=== PATIENT | male | born 1975 | race Caucasian/White ===

== ENCOUNTER 2016-05-16 21:07 | Inpatient (IN) | payer OTHER ==
[~2016-05-16] VITALS: Ht 182.9 cm; Wt 158.5 kg
[~2016-05-16 21:07] MED LIST: COUM4TAB PO; DILT60TA33 PO; FURO1TAB62 PO; PANT20 PO
[2016-05-16 21:08] VITALS: BP 178/109; PULSE 93; RESP 24; TEMP 98.5; O2SAT 94
--- NOTE | 2016-05-16 21:12 | PD ---
Physical Exam Date Seen by Provider: May 16, 2016 Time Seen by Provider: 21:10 Narrative 40 year old male presents to the emergency department for evaluation of increased pressure to his upper abdomen causing him to be short of breath. Patient states it has been ongoing for 9 months. He states he was seeing a specialist, but "ran out of money". He states that his GI MD wanted to do a colonoscopy/endoscopy, but he did not have this done. No nausea, vomiting, diarrhea. He reports constipation. Patient awaiting bed placement. Data Data Last Documented VS Vital Signs Date Time Temp Pulse Resp B/P Pulse Ox O2 Delivery O2 Flow Rate FiO2 05/16/16 21:08 98.5 93 24 178/109 94 Room Air [facility] Supervised Visit with SAMANTHA: Rafaela Rodriguez May 16, 2016 21:11
[2016-05-16] MEDS ORDERED: VARE.5 PO (21:56)
[2016-05-16 22:09] VITALS: O2SAT 93
[2016-05-16] MEDS ORDERED: SODIUM CHLORIDE 0.9% FLUSH 10 ML FLUSH IV FLUSH PRN (22:15)
[2016-05-16] MEDS ORDERED: LORazepam 2 MG/ML VIAL IV PUSH ONE (22:15)
[2016-05-16 22:35] LABS: AUTOMATED NEUTROPHIL # 8.2 TH/MM3 (1.8-7.7); BASOPHIL # 0.1 TH/MM3 (0-0.2); BASOPHIL % 1.2 % (0.0-2.0); EOSINOPHIL # 0.1 TH/MM3 (0-0.4); EOSINOPHIL % 1.3 % (0.0-4.0); HEMATOCRIT 42.5 % (39.0-51.0); HEMO FLAGS DIFF FINAL; LYMPH % 12.8 % (9.0-44.0); LYMPHOCYTE # 1.4 TH/MM3 (1.0-4.8); MEAN CELL VOLUME 80.6 FL (80.0-100.0); MEAN CORPUSCULAR HEMOGLOBIN 25.3 PG (27.0-34.0); MEAN CORPUSCULAR HGB CONC 31.4 % (32.0-36.0); MONO % 8.9 % (0.0-8.0); NEUT % 75.8 % (16.0-70.0); PLATELET COUNT 290 TH/MM3 (150-450); RED BLOOD COUNT 5.27 MIL/MM3 (4.50-5.90); RED CELL DISTRIBUTION WIDTH 19.9 % (11.6-17.2); WHITE BLOOD COUNT 10.7 TH/MM3 (4.0-11.0)
[2016-05-16 22:49] LABS: APTT (PATIENT) 24.6 SEC (24.3-30.1); INTERNATIONAL NORMALIZED RATIO 1.1 RATIO
[2016-05-16 22:56] LABS: ANION GAP 8 MEQ/L (5-15); AST (GOT) 19 U/L (15-37); BICARBONATE 27.4 MEQ/L (21.0-32.0); BLOOD UREA NITROGEN 19 MG/DL (7-18); CHLORIDE 105 MEQ/L (98-107); GLOMERULAR FILTRATION RATE 70 ML/MIN (>89); POTASSIUM 4.4 MEQ/L (3.5-5.1); SODIUM (NA) 140 MEQ/L (136-145)
[2016-05-16 23:01] LABS: ALKALINE PHOSPHATASE 96 U/L (45-117); ALT (GPT) 18 U/L (12-78); TOTAL BILIRUBIN ADULT 0.7 MG/DL (0.2-1.0)
[2016-05-16] MEDS ORDERED: IOHEXOL 350 MG/ML 10 ML VIAL (for RAD DIAG) IV ONE (23:20)
[2016-05-17] VITALS (19 sets, daily range): BP systolic 92–186; BP diastolic 60–138; PULSE 78–131; RESP 14–26; TEMP 98–98.3; O2SAT 93–99
[2016-05-17] MEDS ORDERED: FUROSEMIDE 40 MG/4 ML VIAL IV PUSH ONE (00:15)
--- NOTE | 2016-05-17 00:18 | RADRPT ---
EXAM DATE/TIME: 05/16/2016 23:18 [facility] COMPARISON: No previous studies available for comparison. INDICATIONS : Abdominal pain. IV CONTRAST: 100 cc Omnipaque 350 (iohexol) IV ORAL CONTRAST: No oral contrast ingested. RADIATION DOSE: 29.15 CTDIvol (mGy) MEDICAL HISTORY : Cardiovascular disease. SURGICAL HISTORY : Appendectomy. ENCOUNTER: Initial ACUITY: 7 - 11 months PAIN SCALE: 9/10 LOCATION: Bilateral upper quadrant abdomen TECHNIQUE: Volumetric scanning of the abdomen and pelvis was performed. Using automated exposure control and ad justment of the mA and/or kV according to patient size, radiation dose was kept as low as reasonably achievable to obtain optimal diagnostic quality images. FINDINGS: There is artifact along the right lateral abdomen. LOWER LUNGS: There is a calcified granuloma at the right lung base. There is some patchy minimal consolidation or atelectasis at the lung bases. LIVER: There is diffuse decreased attenuation of the liver without lesion. There is no dilation of the bili jacinto tree. No calcified gallstones. SPLEEN: Normal size without lesion. PANCREAS: Within normal limits. KIDNEYS: Normal in size and shape. There is no mass, stone or hydronephrosis. ADRENAL GLANDS: Within normal limits. VASCULAR: There is no aortic aneurysm. BOWEL/MESENTERY: The stomach, small bowel, and colon demonstrate no acute abnormality. There is mild ascites around th e spleen and left paracolic gutter region. There is minimal hazy density at the root of mesentery. ABDOMINAL WALL: Within normal limits. RETROPERITONEUM: There is no lymphadenopathy. BLADDER: No wall thickening or mass. REPRODUCTIVE: Within normal limits. INGUINAL: There is no lymphadenopathy or hernia. MUSCULOSKELETAL: Within normal limits for patient age. There is edema seen superficially throughout the abdomen and pe lvis. CONCLUSION: 1. Suspected mild fatty infiltration of the liver. 2. Mild ascites seen in the left paracolic gutter region and around the spleen. 3. Minimal hazy density at the root of the mesentery. This is nonspecific. 4. Superficial edema seen throughout. Jerome Pina MD on May 17, 2016 at 0:11 Board Certified Radiologist. This report was verified electronically.
--- NOTE | 2016-05-17 00:32 | RADRPT ---
EXAM DATE/TIME: 05/16/2016 23:51 [facility] COMPARISON: CHEST SINGLE AP, January 17, 2016, 15:01. INDICATIONS : Short of breath. MEDICAL HISTORY : None. SURGICAL HISTORY : None. ENCOUNTER: Initial ACUITY: 1 day PAIN SCORE: 7/10 LOCATION: Bilateral chest FINDINGS: The heart size is enlarged. There is diffuse mixed interstitial and mild alveolar density. A signific ant effusion is not seen. CONCLUSION: Cardiomegaly with diffuse increased density likely related to CHF. Jerome Pina MD on May 17, 2016 at 0:30 Board Certified Radiologist. This report was verified electronically.
[2016-05-17] MEDS ORDERED: DILTIAZEM HCL 25 MG/5 ML VIAL IV ONE (01:30)
[2016-05-17 01:32] LABS: BLOOD, URINE NEG (NEG); COMMENT (UR) CULT NOT INDICATED; CULTURE IF INDICATED CULT NOT INDICATED; GLUCOSE,URINE NEG (NEG); KETONE, URINE NEG (NEG); MUCUS URINE FEW /lpf (OCC); NITRITE,URINE NEG (NEG); PH, URINE 5.5 (5.0-8.5); SQUAMOUS EPITHELIAL CELL URINE <1 /hpf (0-5); URINE COLOR YELLOW (YELLW/STRAW)
--- NOTE | 2016-05-17 01:57 | PD ---
HPI Chief Complaint: Abdominal Pain Time Seen by Provider: 21:53 Travel History International Travel<30 days: No Contact w/Intl Traveler<30days: No Traveled to known affect area: No History of Present Illness HPI This is a 40-year-old male who has a history of atrial fibrillation who is on Lasix and Coumadin who presents to the emergency department with several days of increasing shortness of breath associated with abdominal pain, constant, moderate severity, worse with laying flat. He says that the symptoms of been going on for months but it been worsening over the past week. He says his primary care doctor told him to follow up with a GI that he's having lot of insurance difficulties. He has had some increasing lower extremity swelling. He says he feels like his abdomen is distended and is getting in the way of him taking deep breaths. PFSH Past Medical History Hx Anticoagulant Therapy: Yes (COUMADIN) Atrial Fibrillation: Yes Heart Rhythm Problems: Yes ( A FIB) Cancer: No Cardiovascular Problems: Yes (AFIB) Chest Pain: No Congestive Heart Failure: No Diminished Hearing: No Endocrine: No GERD: Yes Genitourinary: No Immune Disorder: No Musculoskeletal: No Neurologic: No Psychiatric: No Reproductive: No Respiratory: No Past Surgical History Abdominal Surgery: No AICD: No Appendectomy: Yes Arteriovenous Shunt: No Cardiac Surgery: No Ear Surgery: No Endocrine Surgery: No Eye Surgery: No Genitourinary Surgery: No Insulin Pump: No Joint Replacement: No Oral Surgery: No Pacemaker: No Thoracic Surgery: Yes (APPENDECTOMY) Other Surgery: Yes (RIGHT LEG) Social History Alcohol Use: No Tobacco Use: Yes (1 PPD) Substance Use: No Allergies-Medications (Allergen,Severity, Reaction): Coded Allergies: No Known Allergies (Unverified , 05/16/16) Reported Meds & Prescriptions Reported Meds & Active Scripts Active Coumadin (Warfarin) 4 Mg Tab 4 Mg PO DAILY Cardizem (Diltiazem HCl) 60 Mg Tab 60 Mg PO QID Lasix (Furosemide) 20 Mg Tab 20 Mg PO DAILY Reported Chantix (Varenicline) 0.5 Mg Tab 0.5 Mg PO DAILY Days 1-3 Review of Systems Except as stated in HPI: all other systems reviewed are Neg Physical Exam Narrative GENERAL: Morbidly obese SKIN: Focused skin assessment warm and dry. HEAD: Atraumatic. Normocephalic. EYES: Pupils equal and round. No injection or drainage. ENT: Moist mucous membranes NECK: Trachea midline. CARDIOVASCULAR: Regular rate and rhythm. No murmur appreciated. 2+ bilateral lower extremity edema RESPIRATORY: Rales in the bilateral lung bases, tachypnea GASTROINTESTINAL: Abdomen soft, distended, mildly tender to palpation in the periumbilical area with no rebound or guarding. MUSCULOSKELETAL: No obvious deformities. NEUROLOGICAL: Awake and alert. No obvious cranial nerve deficits. Moving all extremities. PSYCHIATRIC: Appropriate mood and affect; insight and judgment normal. Data Data Last Documented VS Vital Signs Date Time Temp Pulse Resp B/P Pulse Ox O2 Delivery O2 Flow Rate FiO2 05/17/16 01:37 131 26 163/88 94 05/17/16 01:13 Nasal Cannula 3 05/16/16 21:08 98.5 Orders Complete Blood Count With Diff (05/16/16 22:06) Comprehensive Metabolic Panel (05/16/16 22:06) Lipase (05/16/16 22:06) Urinalysis - C+S If Indicated (05/16/16 22:06) Ct Abd/Pel W Iv Contrast(Rout) (05/16/16 22:06) Iv Access Insert/Monitor (05/16/16 22:06) Ecg Monitoring (05/16/16 22:06) Oximetry (05/16/16 22:06) Sodium Chloride 0.9% Flush (Ns Flush) (05/16/16 22:15) B-Type Natriuretic Peptide (05/16/16 22:06) Lorazepam Inj (Ativan Inj) (05/16/16 22:15) Electrocardiogram (05/16/16 ) Troponin I (05/16/16 22:06) Prothrombin Time / Inr (Pt) (05/16/16 22:25) Act Partial Throm Time (Ptt) (05/16/16 22:25) Iohexol 350 Inj (Omnipaque 350 Inj) (05/16/16 23:20) Chest, Single Ap (05/16/16 ) Furosemide Inj (Lasix Inj) (05/17/16 00:15) Diltiazem Inj (Cardizem Inj) (05/17/16 01:30) Vital Signs (Adult) Q15MX4,Q4H (05/17/16 01:44) Sap Basis Administrator / Telemetry JULIO.Q8H (05/17/16 01:44) Cardiac Rhythm JULIO.Q8H (05/17/16 01:44) Notify Dr: Other (05/17/16 01:44) Diltiazem Inj (Cardizem Inj) (05/17/16 01:45) Admit Order (Ed Use Only) (05/17/16 02:01) Labs Laboratory Tests Test 05/16/16 05/17/16 22:21 01:00 White Blood Count 10.7 TH/MM3 Red Blood Count 5.27 MIL/MM3 Hemoglobin 13.3 GM/DL Hematocrit 42.5 % Mean Corpuscular Volume 80.6 FL Mean Corpuscular Hemoglobin 25.3 PG Mean Corpuscular Hemoglobin 31.4 % Concent Red Cell Distribution Width 19.9 % Platelet Count 290 TH/MM3 Mean Platelet Volume 8.4 FL Neutrophils (%) (Auto) 75.8 % Lymphocytes (%) (Auto) 12.8 % Monocytes (%) (Auto) 8.9 % Eosinophils (%) (Auto) 1.3 % Basophils (%) (Auto) 1.2 % Neutrophils # (Auto) 8.2 TH/MM3 Lymphocytes # (Auto) 1.4 TH/MM3 Monocytes # (Auto) 1.0 TH/MM3 Eosinophils # (Auto) 0.1 TH/MM3 Basophils # (Auto) 0.1 TH/MM3 CBC Comment DIFF FINAL Differential Comment Prothrombin Time 12.0 SEC Prothromb Time International 1.1 RATIO Ratio Activated Partial 24.6 SEC Thromboplast Time Sodium Level 140 MEQ/L Potassium Level 4.4 MEQ/L Chloride Level 105 MEQ/L Carbon Dioxide Level 27.4 MEQ/L Anion Gap 8 MEQ/L Blood Urea Nitrogen 19 MG/DL Creatinine 1.15 MG/DL Estimat Glomerular Filtration 70 ML/MIN Rate Random Glucose 205 MG/DL Calcium Level 8.8 MG/DL Total Bilirubin 0.7 MG/DL Aspartate Amino Transf 19 U/L (AST/SGOT) Alanine Aminotransferase 18 U/L (ALT/SGPT) Alkaline Phosphatase 96 U/L Troponin I LESS THAN 0.02 NG/ML B-Type Natriuretic Peptide 411 PG/ML Total Protein 7.1 GM/DL Albumin 3.4 GM/DL Lipase 220 U/L Urine Color YELLOW Urine Turbidity CLEAR Urine pH 5.5 Urine Specific [place] GREATER THAN 1.050 Urine Protein 30 mg/dL Urine Glucose (UA) NEG mg/dL Urine Ketones NEG mg/dL Urine Occult Blood NEG Urine Nitrite NEG Urine Bilirubin NEG Urine Urobilinogen 2.0 MG/DL Urine Leukocyte Esterase NEG Urine RBC LESS THAN 1 /hpf Urine WBC 1 /hpf Urine Squamous Epithelial <1 /hpf Cells Urine Mucus FEW /lpf Microscopic Urinalysis Comment CULT NOT INDICATED MDM Medical Decision Making Medical Screen Exam Complete: Yes Emergency Medical Condition: Yes Interpretation(s) EKG: Atrial fibrillation with rapid ventricular response No leukocytosis Electrolytes are reassuring Troponin is normal BNP is 411 Last 24 hours Impressions Abdomen/Pelvis CT 05/16/16 2206 Signed Impressions: Service Date/Time: Monday, May 16, 2016 23:18 - CONCLUSION: 1. Suspected mild fatty infiltration of the liver. 2. Mild ascites seen in the left paracolic gutter region and around the spleen. 3. Minimal hazy density at the root of the mesentery. This is nonspecific. 4. Superficial edema seen throughout. Jerome Pina MD Chest X-Ray 05/16/16 0000 Signed Impressions: Service Date/Time: Monday, May 16, 2016 23:51 - CONCLUSION: Cardiomegaly with diffuse increased density likely related to CHF. Jerome Pina MD Differential Diagnosis Congestive heart failure, atrial fibrillation, bowel obstruction, gastritis, peptic ulcer disease, hernia Narrative Course This is a 40-year-old male who presents to the emergency department with increasing shortness of breath, orthopnea and abdominal discomfort. He was placed on a monitor and an IV was established. He was found to be in atrial fibrillation with rapid ventricular response. Labs were obtained which demonstrate a BNP of 411. Chest x-ray demonstrates pulmonary congestion. Patient was given a dose of 40 mg of IV Lasix. INR is 1.1. Patient reports compliance with his Coumadin. Patient was given a dose of IV diltiazem and initiated on a diltiazem infusion. He continued to be somewhat dyspneic despite IV diuresis. Patient will be admitted for volume overload and and rate control. Physician Communication Physician Communication Discussed with Dr. Oconnor Diagnosis Primary Impression: Atrial fibrillation with RVR Additional Impression: Congestive heart failure Qualified Code: I50.9 - Acute congestive heart failure, unspecified congestive heart failure type Admitting Information Admitting Physician Requests: Admit Mihaela Ingram MD May 17, 2016:57
[2016-05-17] MEDS: DILTIAZEM INJ 125 MG in SODIUM CHLORIDE 0.9% INJ 100 ML IV SCH ×2 (02:11→10:48)
[2016-05-17] MEDS ORDERED: ENOXAPARIN SODIUM 150 MG/ML SYRINGE SQ ONE (02:15)
[2016-05-17] MEDS ORDERED: BISACODYL 10 MG SUPP RECTAL PRN (02:15)
[2016-05-17] MEDS ORDERED: SODIUM CHLORIDE 0.9% FLUSH 10 ML FLUSH IV FLUSH PRN (02:15)
[2016-05-17] MEDS ORDERED: ONDANSETRON HCL 4 MG/2 ML VIAL IVP PRN (02:15)
[2016-05-17] MEDS ORDERED: ACETAMINOPHEN 325 MG TAB PO PRN (02:15)
[2016-05-17] MEDS ORDERED: MORPHINE SULFATE 4 MG/ML INJ IV PRN (02:15)
--- NOTE | 2016-05-17 05:08 | HHI.HP ---
[facility] Service [facility] Primary Care Physician Non-Staff Admission Diagnosis atrial fibrillation with rvr, chf Diagnoses: (1) Atrial fibrillation with RVR Diagnosis: Principal (2) Chest pain Diagnosis: Principal (3) CHF (congestive heart failure) Diagnosis: Principal (4) Non-compliance Diagnosis: Principal (5) Tobacco abuse Diagnosis: Principal Travel History International Travel<30 Days: No Contact w/Intl Traveler <30 Da: No Traveled to Known Affected Are: No History of Present Illness This is a 40-year-old male with a PMH of A. fib on Coumadin, CHF (Echo 04/13/14 w / EF 45-50%), HTN, Tobacco Abuse and Noncompliance who presented to the ER with SOB, chest pain and abdominal pain x8 months. States symptoms have been getting progressively worse. States he was referred to GI by his PCP but he "ran out of money" and hasn't followed up. Also off all his medications, including Coumadin and Lasix. On arrival, found to be in A. fib with RVR, BP 164/132, HR 120, O2 sat 94% on 3L NC. S/p Cardizem and started on Cardizem gtt in ER. CBC essentially unremarkable. Chemistry unremarkable except for BS 205. Troponin negative. BNP 411. INR 1.1. UA negative. CXR with cardiomegaly and CHF. CT Abd/Pelvis w/ mild fatty infiltration of liver, mild ascites, superficial edema seen throughout. S/p Lasix 40mg IV in ER w/ good diuresis. Review of Systems Except as stated in HPI: all other systems reviewed are Neg ROS: 14 point review of systems otherwise negative. Past Family Social History Past Medical History PMH: A. fib on Coumadin, CHF (Echo 04/13/14 w/ EF 45-50%), HTN, Tobacco Abuse and Noncompliance Past Surgical History PAST SURGICAL HISTORY: Appendectomy, Right Leg Surgery Allergies: Coded Allergies: No Known Allergies (Unverified , 05/16/16) Family History PAST FAMILY HISTORY: Reviewed. No h/o DM or CAD Social History PAST SOCIAL HISTORY: Negative for alcohol. Smokes 1ppd. Denies drug use. Physical Exam Vital Signs Vital Signs Date Time Temp Pulse Resp B/P Pulse Ox O2 Delivery O2 Flow Rate FiO2 05/17/16 04:06 102 26 130/70 96 Nasal Cannula 3 05/17/16 02:57 129 26 118/93 96 Nasal Cannula 3 05/17/16 01:37 131 26 163/88 94 05/17/16 01:13 122 26 186/138 Nasal Cannula 3 05/17/16 01:09 120 26 164/132 94 Nasal Cannula 3 05/16/16 22:10 96 Nasal Cannula 2 05/16/16 22:09 93 05/16/16 21:08 98.5 93 24 178/109 94 Room Air Physical Exam PE: GENERAL: Middle-aged obese male in no acute distress. HEENT: PERRLA, EOMI. No scleral icterus or conjunctival pallor. No lid lag or facial droop. CARDIOVASCULAR: Regular rate and rhythm. No obvious murmurs to auscultation. No chest tenderness to palpation. RESPIRATORY: No obvious rhonchi or wheezing. Clear to auscultation. Breath sounds decreased at bases bilaterally. GASTROINTESTINAL: Abdomen distended but soft, nontender. BS normal. MUSCULOSKELETAL: Extremities without clubbing, cyanosis. 2+ edema. No obvious deformities. NEUROLOGICAL: Awake, alert and oriented x4. No focal neurologic deficits. Moving both upper and lower extremities spontaneously. Laboratory Laboratory Tests Test 05/16/16 05/17/16 22:21 01:00 White Blood Count 10.7 Red Blood Count 5.27 Hemoglobin 13.3 Hematocrit 42.5 Mean Corpuscular Volume 80.6 Mean Corpuscular Hemoglobin 25.3 Mean Corpuscular Hemoglobin 31.4 Concent Red Cell Distribution Width 19.9 Platelet Count 290 Mean Platelet Volume 8.4 Neutrophils (%) (Auto) 75.8 Lymphocytes (%) (Auto) 12.8 Monocytes (%) (Auto) 8.9 Eosinophils (%) (Auto) 1.3 Basophils (%) (Auto) 1.2 Neutrophils # (Auto) 8.2 Lymphocytes # (Auto) 1.4 Monocytes # (Auto) 1.0 Eosinophils # (Auto) 0.1 Basophils # (Auto) 0.1 CBC Comment DIFF FINAL Differential Comment Prothrombin Time 12.0 Prothromb Time International 1.1 Ratio Activated Partial 24.6 Thromboplast Time Sodium Level 140 Potassium Level 4.4 Chloride Level 105 Carbon Dioxide Level 27.4 Anion Gap 8 Blood Urea Nitrogen 19 Creatinine 1.15 Estimat Glomerular Filtration 70 Rate Random Glucose 205 Calcium Level 8.8 Total Bilirubin 0.7 Aspartate Amino Transf 19 (AST/SGOT) Alanine Aminotransferase 18 (ALT/SGPT) Alkaline Phosphatase 96 Troponin I LESS THAN 0.02 B-Type Natriuretic Peptide 411 Total Protein 7.1 Albumin 3.4 Lipase 220 Urine Color YELLOW Urine Turbidity CLEAR Urine pH 5.5 Urine Specific [place] GREATER THAN 1.050 Urine Protein 30 Urine Glucose (UA) NEG Urine Ketones NEG Urine Occult Blood NEG Urine Nitrite NEG Urine Bilirubin NEG Urine Urobilinogen 2.0 Urine Leukocyte Esterase NEG Urine RBC LESS THAN 1 Urine WBC 1 Urine Squamous Epithelial <1 Cells Urine Mucus FEW Microscopic Urinalysis Comment CULT NOT INDICATED Result Diagram: 05/16/16222005/16/162220 Assessment and Plan Problem List: (1) Atrial fibrillation with RVR ICD Code: I48.91 Status: Acute (2) Chest pain ICD Code: R07.9 Status: Acute (3) CHF (congestive heart failure) ICD Code: I50.9 Status: Acute (4) Tobacco abuse ICD Code: Z72.0 Status: Acute (5) Non-compliance ICD Code: Z91.19 Status: Acute Assessment and Plan A/P: 1. A. fib: w/ RVR, HR 120-130's while in ER, s/p Cardizem IV and started on Cardizem gtt. +Non-Compliance w/ medications including Cardizem and Coumadin. INR subtherapeutic at 1.1, s/p Lovenox in ER. Continue w/ Cardizem gtt, resume home Coumadin and Cardizem po. Consult Cardiology for further evaluation. 2. Chest Pain: Likely secondary to acute A-fib w/ RVR, however h/o CAD, initial trop negative. Will check serial cardiac enzymes for trend. 3. CHF: Acute on Chronic. Systolic. Echo 04/13/14 w/ EF 45-50%, non-compliant w/ Lasix. BNP 411, CXR w/ evidence of CHF, images reviewed by me, s/p Lasix IV in ER, monitor I/O, Lasix 40mg IV bid. 4. Non-compliance: As above, pt off medications and non-compliant w/ follow- up. Stressed importance of follow up and adherence to medical regimen. 5. Tobacco Abuse: Counselled. Ativan prn if needed. No NicoDerm to avoid further vasoconstriction 6. DVT Prophylaxis: SCD/Teds. 7. Social work for d/c planning as needed. 8. Case discussed w/ ER physician at length. Physician Certification 2 Midnight Certification Type: Admission for Inpatient Services Order for Inpatient Services The services are ordered in accordance with Medicare regulations or non- Medicare payer requirements, as applicable. In the case of services not specified as inpatient-only, they are appropriately provided as inpatient services in accordance with the 2-midnight benchmark. Estimated LOS (days): 2 days is the estimated time the patient will need to remain in the hospital, assuming treatment plan goals are met and no additional complications. Post-Hospital Plan: Not yet determined Alina Oconnor MD May 17, 2016 05:08
[2016-05-17 05:12] LABS: BLOOD GAS BASE EXCESS 2.4 mmol/L (-2-2); BLOOD GAS CARBOXYHEMOGLOBIN 3.8 % (0-4); BLOOD GAS HCO3 27 mmol/L (22-26); BLOOD GAS METHEMOGLOBIN 0.6 % (0-2); BLOOD GAS O2 HGB SATURATION 88 % (90-100); BLOOD GAS OXYGEN CONTENT 16.8 Vol % (12.0-20.0); BLOOD GAS PCO2 47 mmHg (38-42); BLOOD GAS PO2 65 mmHG (61-120); BLOOD GAS TOTAL HGB 13.6 G/DL (12.0-16.0); TEMP CORR TO 98.6
[2016-05-17 05:13] LABS: CRITICAL VALUE YES; DRAW SITE RT RADIAL; LITER FLOW 2 L/M; NUMBER OF ARTERIAL PUNCTURES 1; OXYGEN DEVICE NASAL CANNULA; STAT YES; ULNAR PULSE PRESENT
[2016-05-17] MEDS ORDERED: FUROSEMIDE 40 MG/4 ML VIAL IV PUSH SCH (09:00)
[2016-05-17] MEDS: SODIUM CHLORIDE 0.9% FLUSH 10 ML FLUSH IV FLUSH SCH ×2 (09:07→21:00)
--- NOTE | 2016-05-17 12:29 | EC ---
Study Study Date:05/17/2016 STUDY CONCLUSIONS SUMMARY - Left ventricle: The cavity size was normal. Wall thickness was normal. Systolic function was severely reduced. The estimated ejection fraction was in the range of 20% to 25%. Wall motion was normal; there were no regional wall motion abnormalities. - Aortic valve: Valve area: 2.51cm^2 (Vmax). - Left atrium: The atrium was mildly dilated. If LV function is below 40, please consider prescribing an ACEI or ARB or document rationale for non-use. PROCEDURE DATA STUDY STATUS: Elective. Procedure: Transthoracic echocardiography. Image quality was poor. Scanning was performed from the parasternal, apical, and subcostal acoustic windows. Study completion: The patient tolerated the procedure well. Transthoracic echocardiography. M-mode, complete 2D, complete spectral Doppler, and color Doppler. Height: Height: 72in. Weight: Weight: 340.3lb. Body mass index: BMI: 46.2kg/m^2. Body surface area: BSA: 2.67m^2. Patient status: Inpatient. CARDIAC ANATOMY LEFT VENTRICLE: The cavity size was normal. Wall thickness was normal. Systolic function was severely reduced. The estimated ejection fraction was in the range of 20% to 25%. Wall motion was normal; there were no regional wall motion abnormalities. AORTIC VALVE: Trileaflet; normal thickness leaflets. Doppler: Transvalvular velocity was within the normal range. There was no stenosis. No regurgitation. Valve area: 2.51cm^2 (Vmax). Indexed valve area: 0.94cm^2/m^2 (Vmax). AORTA: Aortic root: The aortic root was normal in size. MITRAL VALVE: Structurally normal valve. Doppler: Transvalvular velocity was within the normal range. There was no evidence for stenosis. No regurgitation. LEFT ATRIUM: The atrium was mildly dilated. RIGHT VENTRICLE: The cavity size was normal. Wall thickness was normal. PULMONIC VALVE: Doppler: Transvalvular velocity was within the normal range. There was no evidence for stenosis. No regurgitation. TRICUSPID VALVE: Structurally normal valve. Doppler: Transvalvular velocity was within the normal range. No regurgitation. PULMONARY ARTERY: The main pulmonary artery was normal-sized. Systolic pressure was within the normal range. RIGHT ATRIUM: The atrium was normal in size. PERICARDIUM: There was no pericardial effusion. SYSTEMIC VEINS: Inferior vena cava: The vessel was normal in size. Patient weight: 340.3lb _Ejection fraction:_ 65-75% _Fractional shortening:_ 32% up to 5Kg 5-11.5Kg 11.6-22.9Kg 23-45Kg 45-57Kg Aortic Root 7-13 <17 13-22 17-27 17-27 LA diam 6-13 <23 24-38 33-47 37-40 RVID 10-17 7-15 7-15 7-18 8-17 LVIDd 12-22 <32 24-38 33-47 37-40 LVPW 2-4 3-6 5-7 6-8 7-8 IVS 2-4 3-6 5-7 6-8 7-8 BASIC MEASUREMENTS ADULT NORMAL Left ventricle LV internal dimension, ED, chordal 49.9 mm 43-52 level, PLAX LV internal dimension, ES, chordal *46.1 mm 23-38 level, PLAX Fractional shortening, chordal level, *8 % >29 PLAX LV posterior wall thickness, ED 9.69 mm IVS/LVPW ratio, ED 0.98 <1.3 Ventricular septum Septal thickness, ED 9.46 mm Aortic valve Leaflet separation 18 mm 15-26 BASIC MEASUREMENTS ADULT NORMAL Aortic valve Leaflet separation 18 mm 15-26 Aorta Root diameter, ED 25 mm 20-37 Left atrium Anterior-posterior dimension, ES 40 mm 19-40 Anterior-posterior dimension index, ES 1.5 cm/m^2 <2.2 LA/aortic root ratio 1.6 DOPPLER MEASUREMENTS ADULT NORMAL Main pulmonary artery Pressure, S 27 mm Hg =30 Aortic valve Peak velocity, S 120 cm/s Valve area, Vmax 2.51 cm^2 Valve area index, Vmax 0.94 cm^2/m^2 Mitral valve Maximal regurgitant velocity 205 cm/s Tricuspid valve Regurgitant peak velocity 216 cm/s Peak RV-RA gradient, S 19 mm Hg Maximal regurgitant velocity 216 cm/s Systemic veins Estimated CVP 10 mm Hg Right ventricle RV pressure, S 29 mm Hg <30 Pulmonic valve Peak velocity, S 63.8 cm/s LEGEND: Mean values are shown as u=mean value. Asterisk (*) moss values outside specified normal range. Jean Claude Cordoba [id number]
--- NOTE | 2016-05-17 15:34 | EKG ---
Date Performed: 05/17/2016 Time Performed: 04:54:11 PTAGE: 40 years EKG: ATRIAL FIBRILLATION WITH RAPID VENTRICULAR RESPONSE LOW QRS VOLTAGE IN PRECORDIAL LEADS PAT TERN CONSISTENT WITH PULMONARY DISEASE SEPTAL MYOCARDIAL INFARCTION Compared to prior tracing no sign ificant change ABNORMAL ECG NO PREVIOUS TRACING DOCTOR: Sonia Hall Interpretating Date/Time 05/17/2016 15:34:07
--- NOTE | 2016-05-17 15:34 | EKG ---
Date Performed: 05/16/2016 Time Performed: 22:22:53 PTAGE: 40 years EKG: ATRIAL FIBRILLATION WITH RAPID VENTRICULAR RESPONSE LOW QRS VOLTAGE IN PRECORDIAL LEADS PAT TERN CONSISTENT WITH PULMONARY DISEASE SEPTAL MYOCARDIAL INFARCTION Compared to prior tracing no sign ificant change ABNORMAL ECG PREVIOUS TRACING : 01/17/2016 14.40 DOCTOR: Sonia Hall Interpretating Date/Time 05/17/2016 15:33:57
--- NOTE | 2016-05-17 15:39 | HHI.PR ---
Subjective Remarks Mr. Aceves has had improvement of his rate on a Diltiazem drip, but his rate is not yet optimized. Trends have been 100-110 bpm. He continues to have shortness of breath related to edema. Echocardiogram reveals CHF with an EF of 20-25%. He is not aware of a CHF history. Based on a history of care home SOB , inability to sleep laying flat, weakness and dyspnea on exertion; his CHF may have been present for 2-3 months. Objective Vital Signs Date Time Temp Pulse Resp B/P Pulse Ox O2 Delivery O2 Flow Rate FiO2 05/17/16 15:10 98.1 102 22 122/75 94 05/17/16 15:08 97 05/17/16 13:00 97 Nasal Cannula 6.00 05/17/16 12:07 98.0 104 23 97/60 94 05/17/16 11:22 103 05/17/16 09:27 94 40 05/17/16 07:18 102 05/17/16 07:16 98.0 102 23 92/68 93 05/17/16 06:07 98.0 109 14 127/92 99 05/17/16 05:37 98 Nasal Cannula 4.00 05/17/16 05:37 98 35 05/17/16 05:15 122 05/17/16 04:06 102 26 130/70 96 Nasal Cannula 3 05/17/16 02:57 129 26 118/93 96 Nasal Cannula 3 05/17/16 01:37 131 26 163/88 94 05/17/16 01:13 122 26 186/138 Nasal Cannula 3 05/17/16 01:09 120 26 164/132 94 Nasal Cannula 3 05/16/16 22:10 96 Nasal Cannula 2 05/16/16 22:09 93 05/16/16 21:08 98.5 93 24 178/109 94 Room Air I/O 05/16/16 05/16/16 05/16/16 05/17/16 05/17/16 05/17/16 07:00 15:00 23:00 07:00 15:00 23:00 Output Total 400 ml Balance -400 ml Output Urine Total 400 ml # Voids 1 Result Diagram: 05/16/16222005/16/162220 Imaging Last Impressions Abdomen/Pelvis CT 05/16/162205 Signed Impressions: Service Date/Time: Monday, May 16, 2016 23:18 - CONCLUSION: 1. Suspected mild fatty infiltration of the liver. 2. Mild ascites seen in the left paracolic gutter region and around the spleen. 3. Minimal hazy density at the root of the mesentery. This is nonspecific. 4. Superficial edema seen throughout. Jerome Pina MD Chest X-Ray 05/16/16 0000 Signed Impressions: Service Date/Time: Monday, May 16, 2016 23:51 - CONCLUSION: Cardiomegaly with diffuse increased density likely related to CHF. Jerome Pina MD Medications and IVs Current Medications Sodium Chloride (NS Flush) 2 ml UNSCH PRN IV FLUSH FLUSH AFTER USING IV ACCESS ; Start 05/16/16 at 22:15 Lorazepam (Ativan Inj) 1 mg ONCE ONCE IV PUSH Last administered on 05/16/16 23 :13; Start 05/16/16 at 22:15; Stop 05/16/16 at 22:16; Status DC Iohexol (Omnipaque 350 Inj) 100 ml [employer]-MED ONCE IV Last administered on 23:20; Start 05/16/16 at 23:20; Stop 05/16/16 at 23:21; Status DC Furosemide (Lasix Inj) 40 mg ONCE ONCE IV PUSH Last administered on 05/17/16 01:05; Start 05/17/16 at 00:15; Stop 05/17/16 at 14:25; Status DC Diltiazem HCl 20 mg 20 mg ONCE ONCE IV Last administered on 05/17/16 01:46; Start 05/17/16 at 01:30; Stop 05/17/16 at 01:31; Status DC Diltiazem HCl/ Sodium Chloride (Cardizem Inj/NS Inj) 125 ml @ 0 mls/hr TITRATE IV Last administered on 05/17/16 10:48; Start 05/17/16 at 01:45 Enoxaparin Sodium (Lovenox Inj) 150 mg ONCE ONCE SQ Last administered on 02:59; Start 05/17/16 at 02:15; Stop 05/17/16 at 02:16; Status DC Furosemide (Lasix Inj) 40 mg BID@09,18 IV PUSH Last administered on 05/17/16 09 :07; Start 05/17/16 at 09:00; Stop 05/17/16 at 14:25; Status DC Sodium Chloride (NS Flush) 2 ml UNSCH PRN IV FLUSH FLUSH AFTER USING IV ACCESS ; Start 05/17/16 at 02:15 Sodium Chloride (NS Flush) 2 ml BID IV FLUSH Last administered on 05/17/16 09: 07; Start 05/17/16 at 09:00 Ondansetron HCl (Zofran Inj) 4 mg Q6H PRN IVP NAUSEA OR VOMITING; Start at 02:15 Bisacodyl (Dulcolax Supp) 10 mg DAILY PRN RECTAL CONSTIPATION; Start 05/17/16 at 02:15 Acetaminophen (Tylenol) 650 mg Q6H PRN PO FEVER/PAIN SCALE 1 TO 2; Start at 02:15 Acetaminophen/ Hydrocodone Bitart ([place] 5-325 Mg) 1 tab Q4H PRN PO PAIN SCALE 3 TO 5; Start 05/17/16 at 02:15 Morphine Sulfate (Morphine Inj) 2 mg Q3H PRN IV Pain 6-10; Start 05/17/16 at 02: 15 Warfarin Sodium (Coumadin) 4 mg DAILY@16 PO ; Start 05/17/16 at 16:00; Stop at 16:00; Status DC Patient Medication Teaching (Coumadin Booklet) 1 ONCE ONCE .XX ; Start 05/17/16 at 16:00; Stop 05/17/16 at 16:01 Warfarin Sodium (Coumadin) 8 mg DAILY@16 PO ; Start 05/17/16 at 16:00 Furosemide (Lasix Inj) 40 mg TID IV PUSH ; Start 05/17/16 at 18:00 Constitutional General appearance: acutely ill Nutritional status: overweight Eyes Eyelids: Bilateral: Normal Sclera: Bilateral: Normal Pupils: Symmetrical: Yes Reactivity to direct light: Bilateral: Normal Neck Neck: Muscles: Symmetric Range of motion: normal Respiratory Respiratory effort: labored Ausculation: Bilateral: Crackles/rales Cardiovascular Rhythm: irregularly irregular Systolic murmur (2): Type: None Diastolic murmur: Type: none Peripheral edema: Leg: Bilateral: 1+ Ankle: Bilateral: 1+ Foot: Bilateral: 1+ Gastrointestinal Abdomen description: Normal Musculoskeletal Gait: Normal Skin Skin: General color: Normal Psychiatric Judgement: normal A/P Problem List: (1) Dietary counseling and surveillance ICD Code: Z71.3 (2) Congestive heart failure ICD Code: I50.9 (3) Tobacco abuse ICD Code: Z72.0 (4) Atrial fibrillation with RVR ICD Code: I48.91 Assessment and Plan Acute vs. Subacute CHF Pulmonary Edema Peripheral Edema - Echo shows a 20-25% EF - Increased Lasix to TID from BID - Follow fliud balance - Etiology uncertain - Cardiology consult A-fib RVR Respiratory Distress - Continue IV Diltiazem - Follow on Telemetry - Likely related to CHF - Cardiology consult - Continue PRN Oxygen - Follow on pulse ox Tabacco Abuse - counseled to quit Problem Qualifiers (1) Congestive heart failure: Qualified Code: I50.9 - Acute congestive heart failure, unspecified congestive heart failure type Jaswinder Coelho MD May 17, 2016 15:39
[2016-05-17] MEDS ORDERED: CARVEDILOL 3.125 MG TAB PO ONE (15:45)
[2016-05-17] MEDS ORDERED: DIGOXIN 0.5 MG/2 ML VIAL IV PUSH ONE (15:45)
[2016-05-17] MEDS ORDERED: RAMIPRIL 2.5 MG CAP PO ONE (15:45)
[2016-05-17] MEDS ORDERED: SPIRONOLACTONE 25 MG TAB PO ONE (15:45)
[2016-05-17] MEDS ORDERED: WARFARIN SOD 4 MG TAB PO SCH ×2 (16:00)
[2016-05-17] MEDS: SPIRONOLACTONE 25 MG TAB PO SCH (17:53)
[2016-05-17] MEDS: FUROSEMIDE 40 MG/4 ML VIAL IV PUSH SCH (17:53)
[2016-05-17] MEDS: ENOXAPARIN SODIUM 150 MG/ML SYRINGE SQ SCH (18:07)
--- NOTE | 2016-05-17 20:23 | MB ---
cc: SARBJIT REYES MD DATE OF CONSULTATION 05/17/16 HISTORY OF PRESENT ILLNESS Jose Francisco is a very pleasant 40-year-old gentleman who has been developing worsening shortness of breath over the past year to the point where he gets short of breath walking across the room. He had been seeing some sort of specialist but, "ran out of money". He presented to the emergency room on May 16 with chief complaint of upper abdominal discomfort and dyspnea. Otherwise, denies any chest pain, fever, chills, cough, or GI bleeding, paroxysmal nocturnal dyspnea, orthopnea, syncope or dizziness. In the emergency room, he was also found to be in atrial fibrillation. PAST MEDICAL HISTORY 1. Atrial fibrillation. 2. Appendectomy. SOCIAL HISTORY Denies alcohol use. Does smoke a pack of cigarettes a day. ALLERGIES None. MEDICATIONS Prior to admission, 1. Coumadin. 2. Cardizem. 3. Lasix. 4. Chantix In the hospital, 1. Lasix 40 IV t.i.d., 2. Coumadin 8 mg daily, 3. Lovenox 150 subcu x1 4. Cardizem drip. PHYSICAL EXAMINATION VITAL SIGNS: Blood pressure 122/75, pulse ranging between 97 and 104, temperature 98.1, sats 94% on 6 liters nasal cannula. GENERAL: He is alert and oriented times three in no acute distress NECK: Supple. No JVD, no bruit CARDIOVASCULAR: S1, S2. No murmurs, rubs or gallops. LUNGS: Notable for decreased breath signs at the bases. ABDOMEN: Soft, nontender, nondistended, positive bowel sounds. EXTREMITIES: 1+ lower extremity edema. IMAGING STUDIES Chest x-ray shows cardiomegaly with diffuse increased density likely related to CHF. CARDIOLOGY STUDIES 2-D echo read by myself shows EF of 20% mildly dilated left atrium. EKG on admission shows atrial fibrillation at a rate of 116 beats per minute, anteroseptal T-waves, late R-wave transition. LABORATORY DATA White count 10.7, hemoglobin 13.3, hematocrit 42.5, platelet count 290. Sodium 140, potassium 4.4m chloride 105, bicarb 27.4, BUN 19, creatinine 1.15, troponin is less than 0.2 x3. BNP is 411, albumin 3.4. LFTs normal. INR 1.1. Blood gas - pH 7.38, pCO2 47, pO2 65 on 2 liters nasal cannula. DIAGNOSES 1. Decompensated congestive heart failure 2. Cardiomyopathy 3. Tobacco use. 4. Hypoxia 5. Atrial fibrillation 6. Atrial fibrillation with rapid ventricular response. DISCUSSION The patient is [place] [employer] class III-IV based on his symptoms. He has a severely decreased ejection fraction which may be partially explained by atrial fibrillation with rapid ventricular response. He will need a right and left heart catheterization to rule out an ischemic etiology which we will plan for May 19. I have informed the nurse, Wisam, to hold his Coumadin, start him on Lovenox 1 milligram per kilogram subcu b.i.d. Strongly recommend smoking cessation. Continue Cardizem drip for rate control. We will also add PATRICE inhibitor and beta elissa. MD JANNETH Andrew/ /3:42 PM /8:12 PM
[2016-05-17] MEDS: CARVEDILOL 3.125 MG TAB PO SCH (21:47)
[2016-05-17] MEDS: ACETAMINOPHEN/HYDROcodone 325 MG/5 MG TAB PO PRN (21:48)
[2016-05-18] VITALS (12 sets, daily range): BP systolic 113–126; BP diastolic 74–85; PULSE 76–95; RESP 12–22; TEMP 97.6–98.3; O2SAT 92–97
[2016-05-18] MEDS: DILTIAZEM INJ 125 MG in SODIUM CHLORIDE 0.9% INJ 100 ML IV SCH (00:44)
[2016-05-18] MEDS: ENOXAPARIN SODIUM 150 MG/ML SYRINGE SQ SCH ×2 (06:00→17:58)
[2016-05-18] MEDS: RAMIPRIL 2.5 MG CAP PO SCH (08:55)
[2016-05-18] MEDS: CARVEDILOL 3.125 MG TAB PO SCH ×2 (08:55→20:10)
[2016-05-18] MEDS: SPIRONOLACTONE 25 MG TAB PO SCH (08:55)
[2016-05-18] MEDS: FUROSEMIDE 40 MG/4 ML VIAL IV PUSH SCH (08:55)
[2016-05-18] MEDS: SODIUM CHLORIDE 0.9% FLUSH 10 ML FLUSH IV FLUSH SCH ×2 (08:55→20:10)
[2016-05-18 09:22] LABS: HEMATOCRIT 41.3 % (39.0-51.0); MEAN CELL VOLUME 79.8 FL (80.0-100.0); MEAN CORPUSCULAR HEMOGLOBIN 25.3 PG (27.0-34.0); MEAN CORPUSCULAR HGB CONC 31.8 % (32.0-36.0); PLATELET COUNT 275 TH/MM3 (150-450); RED BLOOD COUNT 5.17 MIL/MM3 (4.50-5.90); RED CELL DISTRIBUTION WIDTH 19.6 % (11.6-17.2); REVIEW FLAG FINAL; WHITE BLOOD COUNT 8.1 TH/MM3 (4.0-11.0)
[2016-05-18 09:32] LABS: INTERNATIONAL NORMALIZED RATIO 1.1 RATIO; PROTHROMBIN TIME - PATIENT 12.7 SEC (9.8-11.6)
[2016-05-18 09:48] LABS: BICARBONATE 31.4 MEQ/L (21.0-32.0); POTASSIUM 4.4 MEQ/L (3.5-5.1)
--- NOTE | 2016-05-18 09:51 | HHI.PR ---
Subjective Remarks No new complaints today. His breathing is improved. His fluid retention is improved slightly. Beta Desean and PATRICE Inhibitor have been started by cardiology. He will have a heart cath tomorrow. No reports of chest pain today. His heart rate is improved today and trends are keeping within 80- 100bmp. Objective Vital Signs Date Time Temp Pulse Resp B/P Pulse Ox O2 Delivery O2 Flow Rate FiO2 05/18/16 09:27 95 Nasal Cannula 4.00 05/18/16 07:42 97.9 86 22 113/84 96 05/18/16 07:17 76 05/18/16 03:00 80 05/18/16 03:00 97.8 81 18 120/74 96 05/17/16 23:00 78 05/17/16 23:00 98.1 81 18 102/74 97 05/17/16 22:50 97 05/17/16 22:50 97 Nasal Cannula 6.00 05/17/16 19:00 98.3 87 18 127/79 97 05/17/16 19:00 89 05/17/16 15:10 98.1 102 22 122/75 94 05/17/16 15:08 97 05/17/16 13:00 97 Nasal Cannula 6.00 05/17/16 12:07 98.0 104 23 97/60 94 05/17/16 11:22 103 I/O 05/17/16 05/17/16 05/17/16 05/18/16 05/18/16 05/18/16 07:00 15:00 23:00 07:00 15:00 23:00 Intake Total 930 ml 1061 ml Output Total 400 ml 1460 ml 1525 ml Balance -400 ml -530 ml -464 ml Intake Oral 800 ml 960 ml IV Total 130 ml 101 ml Output Urine Total 400 ml 1460 ml 1525 ml # Voids 1 4 # Bowel Movements 0 0 Result Diagram: 05/18/16 0851 05/16/162220 Imaging Last Impressions Abdomen/Pelvis CT 05/16/162205 Signed Impressions: Service Date/Time: Monday, May 16, 2016 23:18 - CONCLUSION: 1. Suspected mild fatty infiltration of the liver. 2. Mild ascites seen in the left paracolic gutter region and around the spleen. 3. Minimal hazy density at the root of the mesentery. This is nonspecific. 4. Superficial edema seen throughout. Jerome Pina MD Chest X-Ray 05/16/16 0000 Signed Impressions: Service Date/Time: Monday, May 16, 2016 23:51 - CONCLUSION: Cardiomegaly with diffuse increased density likely related to CHF. Jerome Pina MD Objective Remarks GENERAL: NAD, AOx3 SKIN: Warm and dry. HEAD: Atraumatic. Normocephalic. EYES: Pupils equal and round. No scleral icterus. No injection or drainage. ENT: No nasal bleeding or discharge. Mucous membranes pink and moist. NECK: Trachea midline. No JVD. CARDIOVASCULAR: Irregularly Irregular RESPIRATORY: No accessory muscle use. Bilateral Basilar Crackles. GASTROINTESTINAL: Abdomen soft, non-tender, nondistended. Hepatic and splenic margins not palpable. MUSCULOSKELETAL: Extremities without clubbing, cyanosis. Edema is present at lower extremities. No obvious deformities. NEUROLOGICAL: Awake and alert. No obvious cranial nerve deficits. Motor grossly within normal limits. Five out of 5 muscle strength in the arms and legs. Normal speech. PSYCHIATRIC: Appropriate mood and affect; insight and judgment normal. Medications and IVs Administered Medications Medications (Trade) Dose Ordered Sig/Jennifer Route PRN Reason Start Time Stop Time Status Last Admin Dose Admin Diltiazem HCl/ Sodium Chloride (Cardizem Inj/NS Inj) 125 ml @ 0 mls/hr TITRATE IV 05/17/16 01:45 05/18/16 00:44 Sodium Chloride (NS Flush) 2 ml BID IV FLUSH 05/17/16 09:00 05/18/16 08:55 Acetaminophen/ Hydrocodone Bitart ([place] 5-325 Mg) 1 tab Q4H PRN PO PAIN SCALE 3 TO 5 05/17/16 02:15 05/17/16 21:48 Furosemide (Lasix Inj) 40 mg TID IV PUSH 05/17/16 18:00 05/18/16 08:55 Ramipril (Altace) 2.5 mg DAILY PO 05/18/16 09:00 05/18/16 08:55 Carvedilol (Coreg) 3.125 mg Q12HR PO 05/17/16 21:00 05/18/16 08:55 Spironolactone (Aldactone) 25 mg BID@,18 PO 05/17/16 18:00 05/18/16 08:55 Enoxaparin Sodium (Lovenox Inj) 150 mg Q12H SQ 05/17/16 18:00 05/18/16 06:00 A/P Problem List: (1) Dietary counseling and surveillance ICD Code: Z71.3 (2) Congestive heart failure ICD Code: I50.9 (3) Tobacco abuse ICD Code: Z72.0 (4) Atrial fibrillation with RVR ICD Code: I48.91 Assessment and Plan Acute vs. Subacute CHF Pulmonary Edema Peripheral Edema - Echo shows a 20-25% EF - Increased Lasix to TID from BID - Follow fliud balance - Etiology uncertain - Cardiology following - PATRICE Inhibitor continued - Beta Desean continued (no hypotension) and heart rate improved A-fib RVR Respiratory Distress - RVR is improved - Continue IV Diltiazem and Beta Desean for now - Follow on Telemetry - Cardiology following - Continue PRN Oxygen - Follow on pulse ox Tabacco Abuse - counseled to quit Problem Qualifiers (1) Congestive heart failure: Qualified Code: I50.9 - Acute congestive heart failure, unspecified congestive heart failure type Jaswinder Coelho MD May 18, 2016 9:50 am
[2016-05-18 10:05] LABS: INDIRECT BILIRUBIN 0.8 MG/DL (0.0-0.8); TOTAL BILIRUBIN ADULT 1.2 MG/DL (0.2-1.0)
--- NOTE | 2016-05-18 10:22 | EKG ---
Date Performed: 05/17/2016 Time Performed: 15:23:44 PTAGE: 40 years EKG: Atrial fibrillation Poor R wave progression - probable normal variant Low QRS voltages in p recordial leads Compared to prior tracing no significant change Abnormal ECG PREVIOUS TRACING : 05/17/2016 04.54 DOCTOR: Sonia Hall Interpretating Date/Time 05/18/2016 10:21:29
--- NOTE | 2016-05-18 11:12 | PD.CARD.PN ---
Subjective Subjective Remarks alert in nad Objective Vital Signs / I&O Vital Signs Date Time Temp Pulse Resp B/P Pulse Ox O2 Delivery O2 Flow Rate FiO2 05/18/16 09:27 95 Nasal Cannula 4.00 05/18/16 07:42 97.9 86 22 113/84 96 05/18/16 07:17 76 05/18/16 03:00 80 05/18/16 03:00 97.8 81 18 120/74 96 05/17/16 23:00 78 05/17/16 23:00 98.1 81 18 102/74 97 05/17/16 22:50 97 05/17/16 22:50 97 Nasal Cannula 6.00 05/17/16 19:00 98.3 87 18 127/79 97 05/17/16 19:00 89 05/17/16 15:10 98.1 102 22 122/75 94 05/17/16 15:08 97 05/17/16 13:00 97 Nasal Cannula 6.00 05/17/16 12:07 98.0 104 23 97/60 94 05/17/16 11:22 103 I/O 05/17/16 05/17/16 05/17/16 05/18/16 05/18/16 05/18/16 07:00 15:00 23:00 07:00 15:00 23:00 Intake Total 930 ml 1061 ml Output Total 400 ml 1460 ml 1525 ml Balance -400 ml -530 ml -464 ml Intake Oral 800 ml 960 ml IV Total 130 ml 101 ml Output Urine Total 400 ml 1460 ml 1525 ml # Voids 1 4 # Bowel Movements 0 0 Physical Exam GENERAL: SKIN: Warm and dry. HEAD: Normocephalic. EYES: No scleral icterus. No injection or drainage. NECK: Supple, trachea midline. No JVD or lymphadenopathy. CARDIOVASCULAR: Regular rate and rhythm without murmurs, gallops, or rubs. RESPIRATORY: Breath sounds equal bilaterally. No accessory muscle use. GASTROINTESTINAL: Abdomen soft, non-tender, nondistended. MUSCULOSKELETAL: No cyanosis, or edema. BACK: Nontender without obvious deformity. No CVA tenderness. Laboratory Laboratory Tests Test 05/17/16 05/18/16 05/18/16 16:39 08:51 08:52 B-Type Natriuretic Peptide 229 PG/ML 287 PG/ML White Blood Count 8.1 TH/MM3 Red Blood Count 5.17 MIL/MM3 Hemoglobin 13.1 GM/DL Hematocrit 41.3 % Mean Corpuscular Volume 79.8 FL Mean Corpuscular Hemoglobin 25.3 PG Mean Corpuscular Hemoglobin 31.8 % Concent Red Cell Distribution Width 19.6 % Platelet Count 275 TH/MM3 Mean Platelet Volume 8.2 FL Prothrombin Time 12.7 SEC Prothromb Time International 1.1 RATIO Ratio Sodium Level 137 MEQ/L Potassium Level 4.4 MEQ/L Chloride Level 99 MEQ/L Carbon Dioxide Level 31.4 MEQ/L Anion Gap 7 MEQ/L Blood Urea Nitrogen 24 MG/DL Creatinine 1.24 MG/DL Estimat Glomerular Filtration 64 ML/MIN Rate Random Glucose 210 MG/DL Calcium Level 8.7 MG/DL Magnesium Level 2.0 MG/DL Total Bilirubin 1.2 MG/DL Direct Bilirubin 0.4 MG/DL Indirect Bilirubin 0.8 MG/DL Aspartate Amino Transf 19 U/L (AST/SGOT) Alanine Aminotransferase 17 U/L (ALT/SGPT) Alkaline Phosphatase 86 U/L Total Protein 7.0 GM/DL Albumin 3.2 GM/DL Assessment and Plan Problem List: (1) New onset atrial fibrillation (2) Pulmonary congestion (3) CHF (congestive heart failure) (4) Tobacco abuse (5) Atrial fibrillation with RVR (6) Congestive heart failure, unspecified (7) Congestive heart failure (8) Cardiomyopathy Assessment and Plan 1.) Cardiomyopathy - increase aldactone 50 bid, decrease lasix to 20 iv bid, continue coreg, altace, f/u bnp/bmp; rhc/lhc this week 2.) AF - rate controlled on dig, dilt, continue lovenox, f/u cbc 3.) Advised patient to dc tobacco Problem Qualifiers (1) Congestive heart failure: Qualified Code: I50.9 - Acute congestive heart failure, unspecified congestive heart failure type Jean Claude Winston MD May 18, 2016 11:11
[2016-05-18] MEDS: FUROSEMIDE 20 MG/2 ML VIAL IV PUSH SCH (17:59)
[2016-05-18] MEDS: SPIRONOLACTONE 50 MG TAB PO SCH (18:05)
[2016-05-18] MEDS: ACETAMINOPHEN/HYDROcodone 325 MG/5 MG TAB PO PRN (20:17)
[2016-05-19] VITALS (15 sets, daily range): BP systolic 104–135; BP diastolic 58–87; PULSE 82–97; RESP 12–18; TEMP 98–98.3; O2SAT 94–98
[2016-05-19 04:42] LABS: MEAN CELL VOLUME 79.2 FL (80.0-100.0); MEAN CORPUSCULAR HEMOGLOBIN 25.8 PG (27.0-34.0); MEAN CORPUSCULAR HGB CONC 32.6 % (32.0-36.0); PLATELET COUNT 271 TH/MM3 (150-450); RED BLOOD COUNT 4.93 MIL/MM3 (4.50-5.90); RED CELL DISTRIBUTION WIDTH 19.3 % (11.6-17.2); REVIEW FLAG FINAL; WHITE BLOOD COUNT 7.9 TH/MM3 (4.0-11.0)
[2016-05-19 04:55] LABS: MAGNESIUM 1.9 MG/DL (1.5-2.5); POTASSIUM 4.4 MEQ/L (3.5-5.1)
[2016-05-19] MEDS: ENOXAPARIN SODIUM 150 MG/ML SYRINGE SQ SCH (05:54)
[2016-05-19] MEDS: SODIUM CHLORIDE 0.9% FLUSH 10 ML FLUSH IV FLUSH SCH ×2 (07:56→20:43)
[2016-05-19] MEDS: RAMIPRIL 2.5 MG CAP PO SCH (08:40)
[2016-05-19] MEDS: FUROSEMIDE 20 MG/2 ML VIAL IV PUSH SCH ×2 (08:40→17:05)
[2016-05-19] MEDS: CARVEDILOL 3.125 MG TAB PO SCH (08:40)
[2016-05-19] MEDS: SPIRONOLACTONE 50 MG TAB PO SCH ×2 (08:40→17:05)
--- NOTE | 2016-05-19 09:30 | HHI.PR ---
Subjective Remarks resting comfortably with no distress. denies chest pain or sob or dizziness. d/w the RN. Objective Vitals Vital Signs Date Time Temp Pulse Resp B/P Pulse Ox O2 Delivery O2 Flow Rate FiO2 05/19/16 07:00 98.2 82 18 124/87 95 05/19/16 07:00 95 Nasal Cannula 3.00 05/19/16 07:00 82 05/19/16 04:12 98.1 86 12 110/78 95 05/19/16 03:00 86 05/18/16 23:00 97.6 87 12 115/85 92 05/18/16 23:00 83 05/18/16 21:50 97 Nasal Cannula 2.00 05/18/16 19:15 98.0 91 18 126/76 96 05/18/16 19:15 96 Nasal Cannula 2.00 05/18/16 19:01 95 05/18/16 15:06 97 Nasal Cannula 2.00 05/18/16 15:05 87 05/18/16 15:04 97.7 87 21 117/77 97 05/18/16 11:11 95 05/18/16 11:11 97 Nasal Cannula 3.00 05/18/16 11:10 98.3 95 21 118/75 97 I/O 05/18/16 05/18/16 05/18/16 05/19/16 05/19/16 05/19/16 07:00 15:00 23:00 07:00 15:00 23:00 Intake Total 1061 ml 1254 ml 545 ml Output Total 1525 ml 1080 ml 750 ml Balance -464 ml 174 ml -205 ml Intake Oral 960 ml 1200 ml 480 ml IV Total 101 ml 54 ml 65 ml Output Urine Total 1525 ml 1080 ml 750 ml # Voids 6 # Bowel Movements 0 2 1 Result Diagram: 05/19/16 0327 05/19/16326 Imaging Last Impressions Abdomen/Pelvis CT 05/16/162205 Signed Impressions: Service Date/Time: Monday, May 16, 2016 23:18 - CONCLUSION: 1. Suspected mild fatty infiltration of the liver. 2. Mild ascites seen in the left paracolic gutter region and around the spleen. 3. Minimal hazy density at the root of the mesentery. This is nonspecific. 4. Superficial edema seen throughout. Jerome Pina MD Chest X-Ray 05/16/16 0000 Signed Impressions: Service Date/Time: Monday, May 16, 2016 23:51 - CONCLUSION: Cardiomegaly with diffuse increased density likely related to CHF. Jerome Pina MD Objective Remarks GENERAL: obese, in no apparent distress. CARDIOVASCULAR: Regular rate and regular rhythm without murmurs, gallops, or rubs. RESPIRATORY: Clear to auscultation. Breath sounds equal bilaterally. No wheezes , rales, or rhonchi. GASTROINTESTINAL: Abdomen soft, non-tender, nondistended. Normal, active bowel sounds MUSCULOSKELETAL: Extremities without clubbing, cyanosis, or edema. NEURO: Alert & Oriented x4 to person, place, time, situation. Moves all ext x4 Procedures none Medications and IVs Current Medications Sodium Chloride (NS Flush) 2 ml UNSCH PRN IV FLUSH FLUSH AFTER USING IV ACCESS ; Start 05/16/16 at 22:15; Stop 05/17/16 at 16:25; Status DC Lorazepam (Ativan Inj) 1 mg ONCE ONCE IV PUSH Last administered on 05/16/16 23 :13; Start 05/16/16 at 22:15; Stop 05/16/16 at 22:16; Status DC Iohexol (Omnipaque 350 Inj) 100 ml [employer]-MED ONCE IV Last administered on 23:20; Start 05/16/16 at 23:20; Stop 05/16/16 at 23:21; Status DC Furosemide (Lasix Inj) 40 mg ONCE ONCE IV PUSH Last administered on 05/17/16 01:05; Start 05/17/16 at 00:15; Stop 05/17/16 at 14:25; Status DC Diltiazem HCl 20 mg 20 mg ONCE ONCE IV Last administered on 05/17/16 01:46; Start 05/17/16 at 01:30; Stop 05/17/16 at 01:31; Status DC Diltiazem HCl/ Sodium Chloride (Cardizem Inj/NS Inj) 125 ml @ 0 mls/hr TITRATE IV Last administered on 05/18/16 00:44; Start 05/17/16 at 01:45 Enoxaparin Sodium (Lovenox Inj) 150 mg ONCE ONCE SQ Last administered on 02:59; Start 05/17/16 at 02:15; Stop 05/17/16 at 02:16; Status DC Furosemide (Lasix Inj) 40 mg BID@09,18 IV PUSH Last administered on 05/17/16 09 :07; Start 05/17/16 at 09:00; Stop 05/17/16 at 14:25; Status DC Sodium Chloride (NS Flush) 2 ml UNSCH PRN IV FLUSH FLUSH AFTER USING IV ACCESS ; Start 05/17/16 at 02:15 Sodium Chloride (NS Flush) 2 ml BID IV FLUSH Last administered on 05/18/16 08: 55; Start 05/17/16 at 09:00 Ondansetron HCl (Zofran Inj) 4 mg Q6H PRN IVP NAUSEA OR VOMITING; Start at 02:15 Bisacodyl (Dulcolax Supp) 10 mg DAILY PRN RECTAL CONSTIPATION; Start 05/17/16 at 02:15 Acetaminophen (Tylenol) 650 mg Q6H PRN PO FEVER/PAIN SCALE 1 TO 2; Start at 02:15 Acetaminophen/ Hydrocodone Bitart ([place] 5-325 Mg) 1 tab Q4H PRN PO PAIN SCALE 3 TO 5 Last administered on 05/18/16 20:17; Start 05/17/16 at 02:15 Morphine Sulfate (Morphine Inj) 2 mg Q3H PRN IV Pain 6-10; Start 05/17/16 at 02: 15 Warfarin Sodium (Coumadin) 4 mg DAILY@16 PO ; Start 05/17/16 at 16:00; Stop at 16:00; Status DC Patient Medication Teaching (Coumadin Booklet) 1 ONCE ONCE .XX Last administered on 05/17/16 16:11; Start 05/17/16 at 16:00; Stop 05/17/16 at 16:01; Status DC Warfarin Sodium (Coumadin) 8 mg DAILY@16 PO ; Start 05/17/16 at 16:00; Status Hold Furosemide (Lasix Inj) 40 mg TID IV PUSH Last administered on 05/18/16 08:55; Start 05/17/16 at 18:00; Stop 05/18/16 at 11:07; Status DC Ramipril (Altace) 2.5 mg ONCE ONCE PO Last administered on 05/17/16 16:15; Start 05/17/16 at 15:45; Stop 05/17/16 at 15:52; Status DC Ramipril (Altace) 2.5 mg DAILY PO Last administered on 05/19/16 08:40; Start 05/18/16 at 09:00; Stop 05/19/16 at 09:14; Status DC Carvedilol (Coreg) 3.125 mg ONCE ONCE PO Last administered on 05/17/16 16:10; Start 05/17/16 at 15:45; Stop 05/17/16 at 15:54; Status DC Carvedilol (Coreg) 3.125 mg Q12HR PO Last administered on 05/19/16 08:40; Start 05/17/16 at 21:00; Stop 05/19/16 at 09:14; Status DC Digoxin (Lanoxin Inj) 0.5 mg ONCE ONCE IV PUSH Last administered on 05/17/16 16:09; Start 05/17/16 at 15:45; Stop 05/17/16 at 15:56; Status DC Spironolactone (Aldactone) 25 mg ONCE ONCE PO Last administered on 05/17/16 16 :10; Start 05/17/16 at 15:45; Stop 05/17/16 at 15:51; Status DC Spironolactone (Aldactone) 25 mg BID@09,18 PO Last administered on 05/18/16 08: 55; Start 05/17/16 at 18:00; Stop 05/18/16 at 11:07; Status DC Enoxaparin Sodium (Lovenox Inj) 150 mg Q12H SQ Last administered on 05/19/16 05:54; Start 05/17/16 at 18:00 Spironolactone (Aldactone) 50 mg BID@09,18 PO Last administered on 05/19/16 08 :40; Start 05/18/16 at 18:00 Furosemide (Lasix Inj) 20 mg BID@09,18 IV PUSH Last administered on 05/19/16 08:40; Start 05/18/16 at 18:00 Ramipril (Altace) 5 mg DAILY PO ; Start 05/20/16 at 09:00 Carvedilol (Coreg) 6.25 mg Q12HR PO ; Start 05/19/16 at 21:00 A/P Assessment and Plan A/P Acute vs. Subacute CHF Pulmonary Edema Peripheral Edema - Echo shows a 20-25% EF - continue lasix and aldactone - Etiology uncertain - Cardiology following- possible cardiac cath this week. - PATRICE Inhibitor continued - Beta Desean continued . A-fib RVR Respiratory Distress - RVR has improved - Continue Beta Desean - Follow on Telemetry - Cardiology following - Continue PRN Oxygen - Follow on pulse ox -continue lovenox- coumadin on hold Tabacco Abuse - counseled to quit Naima Garcia MD May 19, 2016 09:30
--- NOTE | 2016-05-19 12:56 | PD.CARD.PN ---
Subjective Subjective Remarks feels better Objective Vital Signs / I&O Vital Signs Date Time Temp Pulse Resp B/P Pulse Ox O2 Delivery O2 Flow Rate FiO2 05/19/16 11:00 98.3 87 18 111/79 94 05/19/16 11:00 87 05/19/16 10:49 96 Nasal Cannula 3.00 05/19/16 07:00 98.2 82 18 124/87 95 05/19/16 07:00 95 Nasal Cannula 3.00 05/19/16 07:00 82 05/19/16 04:12 98.1 86 12 110/78 95 05/19/16 03:00 86 05/18/16 23:00 97.6 87 12 115/85 92 05/18/16 23:00 83 05/18/16 21:50 97 Nasal Cannula 2.00 05/18/16 19:15 98.0 91 18 126/76 96 05/18/16 19:15 96 Nasal Cannula 2.00 05/18/16 19:01 95 05/18/16 15:06 97 Nasal Cannula 2.00 05/18/16 15:05 87 05/18/16 15:04 97.7 87 21 117/77 97 I/O 05/18/16 05/18/16 05/18/16 05/19/16 05/19/16 05/19/16 07:00 15:00 23:00 07:00 15:00 23:00 Intake Total 1061 ml 1254 ml 545 ml Output Total 1525 ml 1080 ml 750 ml Balance -464 ml 174 ml -205 ml Intake Oral 960 ml 1200 ml 480 ml IV Total 101 ml 54 ml 65 ml Output Urine Total 1525 ml 1080 ml 750 ml # Voids 6 # Bowel Movements 0 2 1 Physical Exam GENERAL: SKIN: Warm and dry. HEAD: Normocephalic. EYES: No scleral icterus. No injection or drainage. NECK: Supple, trachea midline. No JVD or lymphadenopathy. CARDIOVASCULAR: Regular rate and rhythm without murmurs, gallops, or rubs. RESPIRATORY: Breath sounds equal bilaterally. No accessory muscle use. GASTROINTESTINAL: Abdomen soft, non-tender, nondistended. MUSCULOSKELETAL: No cyanosis, or edema. BACK: Nontender without obvious deformity. No CVA tenderness. Laboratory Laboratory Tests Test 05/19/16 05/19/16 03:21 03:27 B-Type Natriuretic Peptide 280 PG/ML White Blood Count 7.9 TH/MM3 Red Blood Count 4.93 MIL/MM3 Hemoglobin 12.7 GM/DL Hematocrit 39.0 % Mean Corpuscular Volume 79.2 FL Mean Corpuscular Hemoglobin 25.8 PG Mean Corpuscular Hemoglobin 32.6 % Concent Red Cell Distribution Width 19.3 % Platelet Count 271 TH/MM3 Mean Platelet Volume 8.3 FL Sodium Level 138 MEQ/L Potassium Level 4.4 MEQ/L Chloride Level 99 MEQ/L Carbon Dioxide Level 30.0 MEQ/L Anion Gap 9 MEQ/L Blood Urea Nitrogen 25 MG/DL Creatinine 1.09 MG/DL Estimat Glomerular Filtration 74 ML/MIN Rate Random Glucose 110 MG/DL Calcium Level 8.9 MG/DL Magnesium Level 1.9 MG/DL Assessment and Plan Problem List: (1) New onset atrial fibrillation (2) Pulmonary congestion (3) CHF (congestive heart failure) (4) Tobacco abuse (5) Atrial fibrillation with RVR (6) Congestive heart failure, unspecified (7) Congestive heart failure (8) Cardiomyopathy Assessment and Plan 1.) Cardiomyopathy - increase aldactone 50 bid, decrease lasix to 20 iv bid, increase coreg 6.25 mg bid, altace 5 mg qd, f/u bnp/bmp; rhc/lhc 05/20/16 2.) AF - rate controlled on dig, dilt, coreg, continue lovenox, f/u cbc, hold lovenox in am for cath, d/w nurse 3.) Advised patient to dc tobacco Problem Qualifiers (1) Congestive heart failure: Qualified Code: I50.9 - Acute congestive heart failure, unspecified congestive heart failure type Jean Claude Winston MD May 19, 2016 12:56
[2016-05-19] MEDS: CARVEDILOL 6.25 MG TAB PO SCH (20:43)
[2016-05-20] VITALS (25 sets, daily range): BP systolic 97–155; BP diastolic 64–99; PULSE 77–108; RESP 18–20; TEMP 97–98.2; O2SAT 94–99
[2016-05-20 06:52] LABS: HEMATOCRIT 41.3 % (39.0-51.0); MEAN CELL VOLUME 79.9 FL (80.0-100.0); MEAN CORPUSCULAR HEMOGLOBIN 25.1 PG (27.0-34.0); MEAN CORPUSCULAR HGB CONC 31.4 % (32.0-36.0); PLATELET COUNT 246 TH/MM3 (150-450); RED BLOOD COUNT 5.17 MIL/MM3 (4.50-5.90); REVIEW FLAG FINAL; WHITE BLOOD COUNT 7.1 TH/MM3 (4.0-11.0)
[2016-05-20 07:11] LABS: BICARBONATE 34.4 MEQ/L (21.0-32.0); POTASSIUM 4.3 MEQ/L (3.5-5.1)
--- NOTE | 2016-05-20 09:24 | HHI.PR ---
Subjective Remarks resting comfortably with no distress. no chest pain or sob. d/w the RN and no acute issues over night. Objective Vitals Vital Signs Date Time Temp Pulse Resp B/P Pulse Ox O2 Delivery O2 Flow Rate FiO2 05/20/16 07:00 93 05/20/16 06:00 77 05/20/16 05:00 82 05/20/16 04:00 98.0 90 18 104/64 99 05/20/16 04:00 78 05/20/16 03:00 88 05/20/16 02:00 86 05/20/16 01:00 88 05/20/16 00:00 98.2 90 18 102/70 96 05/20/16 00:00 94 05/19/16 23:00 90 05/19/16 22:00 88 05/19/16 21:00 90 05/19/16 20:00 98.0 89 18 135/58 98 05/19/16 20:00 97 05/19/16 19:05 95 Nasal Cannula 3.00 05/19/16 19:00 88 05/19/16 18:00 88 05/19/16 17:47 96 Nasal Cannula 3.00 05/19/16 17:00 92 05/19/16 16:00 98.2 88 18 134/82 96 05/19/16 16:00 90 05/19/16 15:00 85 05/19/16 15:00 98.0 85 18 104/73 95 05/19/16 11:00 98.3 87 18 111/79 94 05/19/16 11:00 87 05/19/16 10:49 96 Nasal Cannula 3.00 I/O 05/19/16 05/19/16 05/19/16 05/20/16 05/20/16 05/20/16 07:00 15:00 23:00 07:00 15:00 23:00 Intake Total 545 ml 480 ml 480 ml Output Total 750 ml 1450 ml 850 ml Balance -205 ml -970 ml -370 ml Intake Oral 480 ml 480 ml 480 ml IV Total 65 ml Output Urine Total 750 ml 1450 ml 850 ml # Bowel Movements 1 0 Result Diagram: 05/20/16 0550 05/20/16 0550 Imaging Last Impressions Abdomen/Pelvis CT 05/16/162205 Signed Impressions: Service Date/Time: Monday, May 16, 2016 23:18 - CONCLUSION: 1. Suspected mild fatty infiltration of the liver. 2. Mild ascites seen in the left paracolic gutter region and around the spleen. 3. Minimal hazy density at the root of the mesentery. This is nonspecific. 4. Superficial edema seen throughout. Jerome Pina MD Chest X-Ray 05/16/16 0000 Signed Impressions: Service Date/Time: Monday, May 16, 2016 23:51 - CONCLUSION: Cardiomegaly with diffuse increased density likely related to CHF. Jerome Pina MD Objective Remarks GENERAL: obese, in no apparent distress. CARDIOVASCULAR: Regular rate and regular rhythm without murmurs, gallops, or rubs. RESPIRATORY: Clear to auscultation. Breath sounds equal bilaterally. No wheezes , rales, or rhonchi. GASTROINTESTINAL: Abdomen soft, non-tender, nondistended. Normal, active bowel sounds MUSCULOSKELETAL: Extremities without clubbing, cyanosis, or edema. NEURO: Alert & Oriented x4 to person, place, time, situation. Moves all ext x4 Procedures none Medications and IVs Current Medications Sodium Chloride (NS Flush) 2 ml UNSCH PRN IV FLUSH FLUSH AFTER USING IV ACCESS ; Start 05/16/16 at 22:15; Stop 05/17/16 at 16:25; Status DC Lorazepam (Ativan Inj) 1 mg ONCE ONCE IV PUSH Last administered on 05/16/16 23 :13; Start 05/16/16 at 22:15; Stop 05/16/16 at 22:16; Status DC Iohexol (Omnipaque 350 Inj) 100 ml STK-MED ONCE IV Last administered on 23:20; Start 05/16/16 at 23:20; Stop 05/16/16 at 23:21; Status DC Furosemide (Lasix Inj) 40 mg ONCE ONCE IV PUSH Last administered on 05/17/16 01:05; Start 05/17/16 at 00:15; Stop 05/17/16 at 14:25; Status DC Diltiazem HCl 20 mg 20 mg ONCE ONCE IV Last administered on 05/17/16 01:46; Start 05/17/16 at 01:30; Stop 05/17/16 at 01:31; Status DC Diltiazem HCl/ Sodium Chloride (Cardizem Inj/NS Inj) 125 ml @ 0 mls/hr TITRATE IV Last administered on 05/18/16 00:44; Start 05/17/16 at 01:45; Stop 05/19/16 at 20:06; Status DC Enoxaparin Sodium (Lovenox Inj) 150 mg ONCE ONCE SQ Last administered on 02:59; Start 05/17/16 at 02:15; Stop 05/17/16 at 02:16; Status DC Furosemide (Lasix Inj) 40 mg BID@09,18 IV PUSH Last administered on 05/17/16 09 :07; Start 05/17/16 at 09:00; Stop 05/17/16 at 14:25; Status DC Sodium Chloride (NS Flush) 2 ml UNSCH PRN IV FLUSH FLUSH AFTER USING IV ACCESS ; Start 05/17/16 at 02:15 Sodium Chloride (NS Flush) 2 ml BID IV FLUSH Last administered on 05/19/16 20: 43; Start 05/17/16 at 09:00 Ondansetron HCl (Zofran Inj) 4 mg Q6H PRN IVP NAUSEA OR VOMITING; Start at 02:15 Bisacodyl (Dulcolax Supp) 10 mg DAILY PRN RECTAL CONSTIPATION; Start 05/17/16 at 02:15 Acetaminophen (Tylenol) 650 mg Q6H PRN PO FEVER/PAIN SCALE 1 TO 2; Start at 02:15 Acetaminophen/ Hydrocodone Bitart ([place] 5-325 Mg) 1 tab Q4H PRN PO PAIN SCALE 3 TO 5 Last administered on 05/18/16 20:17; Start 05/17/16 at 02:15 Morphine Sulfate (Morphine Inj) 2 mg Q3H PRN IV Pain 6-10; Start 05/17/16 at 02: 15 Warfarin Sodium (Coumadin) 4 mg DAILY@16 PO ; Start 05/17/16 at 16:00; Stop at 16:00; Status DC Patient Medication Teaching (Coumadin Booklet) 1 ONCE ONCE .XX Last administered on 05/17/16 16:11; Start 05/17/16 at 16:00; Stop 05/17/16 at 16:01; Status DC Warfarin Sodium (Coumadin) 8 mg DAILY@16 PO ; Start 05/17/16 at 16:00; Status Hold Furosemide (Lasix Inj) 40 mg TID IV PUSH Last administered on 05/18/16 08:55; Start 05/17/16 at 18:00; Stop 05/18/16 at 11:07; Status DC Ramipril (Altace) 2.5 mg ONCE ONCE PO Last administered on 05/17/16 16:15; Start 05/17/16 at 15:45; Stop 05/17/16 at 15:52; Status DC Ramipril (Altace) 2.5 mg DAILY PO Last administered on 05/19/16 08:40; Start 05/18/16 at 09:00; Stop 05/19/16 at 09:14; Status DC Carvedilol (Coreg) 3.125 mg ONCE ONCE PO Last administered on 05/17/16 16:10; Start 05/17/16 at 15:45; Stop 05/17/16 at 15:54; Status DC Carvedilol (Coreg) 3.125 mg Q12HR PO Last administered on 05/19/16 08:40; Start 05/17/16 at 21:00; Stop 05/19/16 at 09:14; Status DC Digoxin (Lanoxin Inj) 0.5 mg ONCE ONCE IV PUSH Last administered on 05/17/16 16:09; Start 05/17/16 at 15:45; Stop 05/17/16 at 15:56; Status DC Spironolactone (Aldactone) 25 mg ONCE ONCE PO Last administered on 05/17/16 16 :10; Start 05/17/16 at 15:45; Stop 05/17/16 at 15:51; Status DC Spironolactone (Aldactone) 25 mg BID@,18 PO Last administered on 05/18/16 08: 55; Start 05/17/16 at 18:00; Stop 05/18/16 at 11:07; Status DC Enoxaparin Sodium (Lovenox Inj) 150 mg Q12H SQ Last administered on 05/19/16 05:54; Start 05/17/16 at 18:00; Status Hold Spironolactone (Aldactone) 50 mg BID@,18 PO Last administered on 05/19/16 17 :05; Start 05/18/16 at 18:00 Furosemide (Lasix Inj) 20 mg BID@09,18 IV PUSH Last administered on 05/19/16 17:05; Start 05/18/16 at 18:00 Ramipril (Altace) 5 mg DAILY PO ; Start 05/20/16 at 09:00 Carvedilol (Coreg) 6.25 mg Q12HR PO Last administered on 05/19/16 20:43; Start 05/19/16 at 21:00 A/P Assessment and Plan A/P Acute vs. Subacute CHF Pulmonary Edema Peripheral Edema - Echo shows a 20-25% EF - continue lasix and aldactone - Etiology uncertain - Cardiology following- cardiac cath today. - PATRICE Inhibitor continued - Beta Desean continued . A-fib RVR Respiratory Distress - RVR has improved - Continue Beta Desean - Follow on Telemetry - Cardiology following - Continue PRN Oxygen - Follow on pulse ox -continue lovenox- coumadin on hold Tabacco Abuse - counseled to quit Discharge Planning awaiting cardiac cath and cardiology recommendations. Naima Garcia MD May 20, 2016 09:24
[2016-05-20] MEDS ORDERED: RAMI5CAP PO (09:26)
[2016-05-20] MEDS ORDERED: FURO1TAB60 PO (09:26)
[2016-05-20] MEDS ORDERED: CARV6.25 PO (09:26)
[2016-05-20] MEDS ORDERED: ALDA50TA2 PO (09:26)
[2016-05-20] MEDS: FUROSEMIDE 20 MG/2 ML VIAL IV PUSH SCH (09:29)
[2016-05-20] MEDS: SODIUM CHLORIDE 0.9% FLUSH 10 ML FLUSH IV FLUSH SCH ×2 (09:29→20:54)
[2016-05-20] MEDS: CARVEDILOL 6.25 MG TAB PO SCH ×2 (09:30→20:54)
[2016-05-20] MEDS: SPIRONOLACTONE 50 MG TAB PO SCH ×2 (09:30→18:25)
[2016-05-20] MEDS: RAMIPRIL 5 MG CAP PO SCH (09:30)
[2016-05-20] MEDS ORDERED: HEPARIN-NS/PF INJ 500 ML ONE (15:22)
[2016-05-20] MEDS ORDERED: FUROSEMIDE 40 MG/4 ML VIAL ONE (15:53)
[2016-05-20] MEDS ORDERED: IOHEXOL 350 MG/ML 100 ML BTL (for Cath Lab) OTHER ONE (16:00)
[2016-05-20] MEDS ORDERED: SODIUM CHLORIDE 0.9% FLUSH 10 ML FLUSH PRN (16:15)
[2016-05-20] MEDS ORDERED: MISC INFORMATION XX ONE (16:15)
[2016-05-20] MEDS ORDERED: MAGNESIUM OXIDE 400 MG TAB PO ONE (16:15)
[2016-05-20] MEDS: ENOXAPARIN SODIUM 150 MG/ML SYRINGE SQ SCH (18:24)
[2016-05-20] MEDS: FUROSEMIDE 40 MG/4 ML VIAL IV PUSH SCH (18:24)
[2016-05-20] MEDS: MAGNESIUM OXIDE 400 MG TAB PO SCH (20:54)
[2016-05-20] MEDS: SODIUM CHLORIDE 0.9% FLUSH 10 ML FLUSH SCH (21:00)
[2016-05-21] VITALS (24 sets, daily range): BP systolic 101–141; BP diastolic 59–94; PULSE 71–100; RESP 16–20; TEMP 97.6–98.5; O2SAT 93–99
[2016-05-21] MEDS: ENOXAPARIN SODIUM 150 MG/ML SYRINGE SQ SCH ×2 (05:16→17:31)
--- NOTE | 2016-05-21 06:44 | MA ---
cc: SARBJIT REYES M.D. DATE 05/20/2016 PROCEDURE PERFORMED Right heart catheterization, left heart catheterization, left ventriculography, coronary angiography. INDICATIONS Cardiomyopathy, [place] [employer] class IV congestive heart failure, congestive heart failure, atrial fibrillation tobacco use. PROCEDURAL STATEMENT The patient was brought to the heart catheterization laboratory, prepped and draped in the usual sterile fashion. 10 cc's of 1% lidocaine was used to locally anesthetize the right common femoral artery. A 4-Romansh sheath placed in the right common femoral artery. A 6-Romansh sheath placed in the right common femoral vein. Right heart catheterization was performed first with a following findings. The pulmonary capillary wedge pressure was 43/44/38. PA pressure 44/15/20. RV pressure 44/10/16. RA pressure 23/22/20. FA sat on room air 93%. PA sat on room air 43.7%. RA sat on room air 44.3%. Cardiac output by Gris is 4 liters per minute. Cardiac index by Gris is 1.4 liters per minute per meter squared. The SVR is 1545.1 dynes. Left heart catheterization was then performed with 4-Romansh JR-4, JL-4 catheter with following findings: LV pressure is 107/20-31, ejection fraction 15-20%. LV appears to be dilated fluoroscopically. Right coronary is large and dominant with mild diffuse disease up to 20-30% angiographically. A large vessel probably 4-41/2 mm in diameter. The left main coronary artery has no significant disease angiographically. The left circumflex has no significant angiographically. The first obtuse marginal vessel is a 0.5 mm diameter vessel. No significant disease angiographically. The second obtuse marginal vessel is a 3 mm vessel with no significant obstructive disease. The third obtuse marginal vessel is a smaller vessel 2.0 mm in diameter. No significant disease angiographically. There is a posterolateral artery distally which is a medium-sized vessel 2.5 mm in diameter. No significant wheeze angiographically. LAD is non transapical. It has mild disease in the mid segment up to 10-20% angiographically. The first diagonal artery is a small vessel 1.5-2 meters in diameter, mild diffuse disease up to 10-20% angiographically. The second diagonal artery is a large vessel actually larger than the LAD with mild disease proximally up to 20-30% angiographically. CONCLUSION 1. Dilated nonischemic cardiomyopathy, ejection fraction 15-20%, cardiac index 1.4 liters/meter squared per minute, SVR 1545 dynes. 2. Mild two-vessel coronary disease in a super-dominant right coronary artery as detailed above. 3. Recommend continue maria dolores inhibitor, beta elissa, Aldactone 50 twice a day, increase Lasix to 40 IV b.i.d., 40 of IV Lasix was given in the cardiac cath lab manager. We will consult the [facility] for transfer for evaluation of transplant and/or LVAD. MD JANNETH Andrew/ISHMAEL /4:13 PM /6:31 AM
[2016-05-21 06:50] LABS: AUTOMATED NEUTROPHIL # 4.6 TH/MM3 (1.8-7.7); BASOPHIL % 0.6 % (0.0-2.0); EOSINOPHIL # 0.3 TH/MM3 (0-0.4); EOSINOPHIL % 3.6 % (0.0-4.0); HEMATOCRIT 41.8 % (39.0-51.0); HEMO FLAGS DIFF FINAL; LYMPH % 16.6 % (9.0-44.0); LYMPHOCYTE # 1.2 TH/MM3 (1.0-4.8); MEAN CELL VOLUME 80.1 FL (80.0-100.0); MEAN CORPUSCULAR HEMOGLOBIN 25.9 PG (27.0-34.0); MEAN CORPUSCULAR HGB CONC 32.3 % (32.0-36.0); MONO % 14.9 % (0.0-8.0); NEUT % 64.3 % (16.0-70.0); PLATELET COUNT 261 TH/MM3 (150-450); RED BLOOD COUNT 5.22 MIL/MM3 (4.50-5.90); RED CELL DISTRIBUTION WIDTH 19.1 % (11.6-17.2); WHITE BLOOD COUNT 7.2 TH/MM3 (4.0-11.0)
[2016-05-21 07:02] LABS: BICARBONATE 36.2 MEQ/L (21.0-32.0); MAGNESIUM 2.2 MG/DL (1.5-2.5); POTASSIUM 4.2 MEQ/L (3.5-5.1)
[2016-05-21] MEDS: SODIUM CHLORIDE 0.9% FLUSH 10 ML FLUSH SCH ×2 (08:30→20:51)
[2016-05-21] MEDS: SODIUM CHLORIDE 0.9% FLUSH 10 ML FLUSH IV FLUSH SCH ×2 (08:31→20:51)
[2016-05-21] MEDS: FUROSEMIDE 40 MG/4 ML VIAL IV PUSH SCH ×2 (08:31→17:30)
[2016-05-21] MEDS: SPIRONOLACTONE 50 MG TAB PO SCH ×2 (08:31→17:30)
[2016-05-21] MEDS: RAMIPRIL 5 MG CAP PO SCH (08:31)
[2016-05-21] MEDS: MAGNESIUM OXIDE 400 MG TAB PO SCH ×2 (08:31→20:50)
[2016-05-21] MEDS: CARVEDILOL 6.25 MG TAB PO SCH ×2 (08:31→20:50)
--- NOTE | 2016-05-21 09:18 | HHI.PR ---
Subjective Remarks resting comfortably with no distress. no chest pain or sob. no new complaints. Objective Vitals Vital Signs Date Time Temp Pulse Resp B/P Pulse Ox O2 Delivery O2 Flow Rate FiO2 05/21/16 07:00 87 05/21/16 05:00 92 05/21/16 04:10 96 Nasal Cannula 2.00 05/21/16 04:00 97.9 87 18 119/76 99 05/21/16 04:00 80 05/21/16 03:00 92 05/21/16 02:00 94 05/21/16 01:00 92 05/21/16 00:00 96 Nasal Cannula 2.00 05/21/16 00:00 96 05/21/16 00:00 98.0 88 18 101/59 99 05/20/16 23:00 90 05/20/16 22:00 94 05/20/16 21:00 94 05/20/16 20:00 108 05/20/16 20:00 98.0 87 18 155/88 99 05/20/16 19:25 96 Nasal Cannula 2.00 05/20/16 19:00 96 05/20/16 18:00 87 05/20/16 17:00 90 05/20/16 16:45 97.8 86 20 132/99 94 05/20/16 16:30 92 Room Air 05/20/16 15:00 92 05/20/16 14:00 86 05/20/16 13:00 85 05/20/16 12:00 94 Room Air 05/20/16 12:00 88 05/20/16 12:00 97.8 88 20 97/67 94 05/20/16 11:35 96 Nasal Cannula 2.00 05/20/16 11:00 83 05/20/16 10:00 90 I/O 05/20/16 05/20/16 05/20/16 05/21/16 05/21/16 05/21/16 07:00 15:00 23:00 07:00 15:00 23:00 Intake Total 480 ml 480 ml 480 ml Output Total 850 ml 1400 ml 2700 ml Balance -370 ml -920 ml -2220 ml Intake Oral 480 ml 480 ml 480 ml Output Urine Total 850 ml 1400 ml 2700 ml # Voids 2 # Bowel Movements 0 Result Diagram: 05/21/16 0510 05/21/16 0510 Imaging Last Impressions Abdomen/Pelvis CT 05/16/16 2206 Signed Impressions: Service Date/Time: Monday, May 16, 2016 23:18 - CONCLUSION: 1. Suspected mild fatty infiltration of the liver. 2. Mild ascites seen in the left paracolic gutter region and around the spleen. 3. Minimal hazy density at the root of the mesentery. This is nonspecific. 4. Superficial edema seen throughout. Jerome Pina MD Chest X-Ray 05/16/16 0000 Signed Impressions: Service Date/Time: Monday, May 16, 2016 23:51 - CONCLUSION: Cardiomegaly with diffuse increased density likely related to CHF. Jerome Pina MD Objective Remarks GENERAL: obese, in no apparent distress. CARDIOVASCULAR: Regular rate and regular rhythm without murmurs, gallops, or rubs. RESPIRATORY: Clear to auscultation. Breath sounds equal bilaterally. No wheezes , rales, or rhonchi. GASTROINTESTINAL: Abdomen soft, non-tender, nondistended. Normal, active bowel sounds MUSCULOSKELETAL: Extremities without clubbing, cyanosis, or edema. NEURO: Alert & Oriented x4 to person, place, time, situation. Moves all ext x4 Procedures cardiac cath Medications and IVs Current Medications Sodium Chloride (NS Flush) 2 ml UNSCH PRN IV FLUSH FLUSH AFTER USING IV ACCESS ; Start 05/16/16 at 22:15; Stop 05/17/16 at 16:25; Status DC Lorazepam (Ativan Inj) 1 mg ONCE ONCE IV PUSH Last administered on 05/16/16 23 :13; Start 05/16/16 at 22:15; Stop 05/16/16 at 22:16; Status DC Iohexol (Omnipaque 350 Inj) 100 ml STK-MED ONCE IV Last administered on 23:20; Start 05/16/16 at 23:20; Stop 05/16/16 at 23:21; Status DC Furosemide (Lasix Inj) 40 mg ONCE ONCE IV PUSH Last administered on 05/17/16 01:05; Start 05/17/16 at 00:15; Stop 05/17/16 at 14:25; Status DC Diltiazem HCl 20 mg 20 mg ONCE ONCE IV Last administered on 05/17/16 01:46; Start 05/17/16 at 01:30; Stop 05/17/16 at 01:31; Status DC Diltiazem HCl/ Sodium Chloride (Cardizem Inj/NS Inj) 125 ml @ 0 mls/hr TITRATE IV Last administered on 05/18/16 00:44; Start 05/17/16 at 01:45; Stop 05/19/16 at 20:06; Status DC Enoxaparin Sodium (Lovenox Inj) 150 mg ONCE ONCE SQ Last administered on 02:59; Start 05/17/16 at 02:15; Stop 05/17/16 at 02:16; Status DC Furosemide (Lasix Inj) 40 mg BID@09,18 IV PUSH Last administered on 05/17/16 09 :07; Start 05/17/16 at 09:00; Stop 05/17/16 at 14:25; Status DC Sodium Chloride (NS Flush) 2 ml UNSCH PRN IV FLUSH FLUSH AFTER USING IV ACCESS ; Start 05/17/16 at 02:15 Sodium Chloride (NS Flush) 2 ml BID IV FLUSH Last administered on 05/20/16 20: 54; Start 05/17/16 at 09:00 Ondansetron HCl (Zofran Inj) 4 mg Q6H PRN IVP NAUSEA OR VOMITING; Start at 02:15 Bisacodyl (Dulcolax Supp) 10 mg DAILY PRN RECTAL CONSTIPATION; Start 05/17/16 at 02:15 Acetaminophen (Tylenol) 650 mg Q6H PRN PO FEVER/PAIN SCALE 1 TO 2; Start at 02:15 Acetaminophen/ Hydrocodone Bitart ([place] 5-325 Mg) 1 tab Q4H PRN PO PAIN SCALE 3 TO 5 Last administered on 05/18/16 20:17; Start 05/17/16 at 02:15 Morphine Sulfate (Morphine Inj) 2 mg Q3H PRN IV Pain 6-10; Start 05/17/16 at 02: 15 Warfarin Sodium (Coumadin) 4 mg DAILY@16 PO ; Start 05/17/16 at 16:00; Stop at 16:00; Status DC Patient Medication Teaching (Coumadin Booklet) 1 ONCE ONCE .XX Last administered on 05/17/16 16:11; Start 05/17/16 at 16:00; Stop 05/17/16 at 16:01; Status DC Warfarin Sodium (Coumadin) 8 mg DAILY@16 PO ; Start 05/17/16 at 16:00; Status Hold Furosemide (Lasix Inj) 40 mg TID IV PUSH Last administered on 05/18/16 08:55; Start 05/17/16 at 18:00; Stop 05/18/16 at 11:07; Status DC Ramipril (Altace) 2.5 mg ONCE ONCE PO Last administered on 05/17/16 16:15; Start 05/17/16 at 15:45; Stop 05/17/16 at 15:52; Status DC Ramipril (Altace) 2.5 mg DAILY PO Last administered on 05/19/16 08:40; Start 05/18/16 at 09:00; Stop 05/19/16 at 09:14; Status DC Carvedilol (Coreg) 3.125 mg ONCE ONCE PO Last administered on 05/17/16 16:10; Start 05/17/16 at 15:45; Stop 05/17/16 at 15:54; Status DC Carvedilol (Coreg) 3.125 mg Q12HR PO Last administered on 05/19/16 08:40; Start 05/17/16 at 21:00; Stop 05/19/16 at 09:14; Status DC Digoxin (Lanoxin Inj) 0.5 mg ONCE ONCE IV PUSH Last administered on 05/17/16 16:09; Start 05/17/16 at 15:45; Stop 05/17/16 at 15:56; Status DC Spironolactone (Aldactone) 25 mg ONCE ONCE PO Last administered on 05/17/16 16 :10; Start 05/17/16 at 15:45; Stop 05/17/16 at 15:51; Status DC Spironolactone (Aldactone) 25 mg BID@09,18 PO Last administered on 05/18/16 08: 55; Start 05/17/16 at 18:00; Stop 05/18/16 at 11:07; Status DC Enoxaparin Sodium (Lovenox Inj) 150 mg Q12H SQ Last administered on 05/21/16 05:16; Start 05/17/16 at 18:00 Spironolactone (Aldactone) 50 mg BID@09,18 PO Last administered on 05/21/16 08 :31; Start 05/18/16 at 18:00 Furosemide (Lasix Inj) 20 mg BID@09,18 IV PUSH Last administered on 05/20/16 09:29; Start 05/18/16 at 18:00; Stop 05/20/16 at 16:08; Status DC Ramipril (Altace) 5 mg DAILY PO Last administered on 05/21/16 08:31; Start 12/26 at 09:00 Carvedilol 6.25 mg 6.25 mg Q12HR PO Last administered on 05/21/16 08:31; Start 05/19/16 at 21:00 Heparin Sodium/ Sodium Chloride (Heparin-NS/Pf Inj) 500 ml @ As Directed STK- MED ONCE .ROUTE Last administered on 05/20/16 15:22; Start 05/20/16 at 15:22; Stop 05/20/16 at 15:23; Status DC Furosemide (Lasix Inj) 40 mg STK-MED ONCE .ROUTE Last administered on 15:53; Start 05/20/16 at 15:53; Stop 05/20/16 at 15:54; Status DC Sodium Chloride (NS Flush) 2 ml BID .XX Last administered on 05/21/16 08:30; Start 05/20/16 at 21:00 Sodium Chloride (NS Flush) 2 ml UNSCH PRN .XX FLUSH AFTER USING IV ACCESS; Start 05/20/16 at 16:15 Miscellaneous Information 1 ONCE ONCE XX ; Start 05/20/16 at 16:15; Stop at 16:16; Status DC Furosemide (Lasix Inj) 40 mg BID@09,18 IV PUSH Last administered on 05/21/16 08:31; Start 05/20/16 at 18:00 Magnesium Oxide (Mag-Ox) 400 mg ONCE ONCE PO Last administered on 05/20/16 16 :15; Start 05/20/16 at 16:15; Stop 05/20/16 at 16:16; Status DC Magnesium Oxide (Mag-Ox) 400 mg Q12HR PO Last administered on 05/21/16 08:31; Start 05/20/16 at 21:00 Iohexol (OMNIPAQUE 350 INJ (Slasher Sawyer)) 100 ml STK-MED ONCE OTHER ; Start at 16:00; Stop 05/21/16 at 08:29; Status DC A/P Assessment and Plan A/P nonischemic cardiomyopathy - Echo shows a 20-25% EF -s/p cardiac cath with mild two vessel disease and EF 20% - continue lasix and aldactone - PATRICE Inhibitor continued - Beta Desean continued . A-fib RVR Respiratory Distress - RVR has improved - Continue Beta Desean - Follow on Telemetry - Cardiology following - Continue PRN Oxygen - Follow on pulse ox -continue lovenox- coumadin on hold Tabacco Abuse - counseled to quit Discharge Planning plan for possible transfer to [facility] for heart transplant. Naima Garcia MD May 21, 2016 09:17
--- NOTE | 2016-05-21 15:38 | PD.CARD.PN ---
Subjective Subjective Remarks feels better Objective Vital Signs / I&O Vital Signs Date Time Temp Pulse Resp B/P Pulse Ox O2 Delivery O2 Flow Rate FiO2 05/21/16 14:00 96 05/21/16 13:00 96 05/21/16 12:00 98.1 98 20 123/69 97 05/21/16 12:00 98 05/21/16 12:00 97 Nasal Cannula 2.00 05/21/16 11:44 95 21 05/21/16 11:00 87 05/21/16 10:00 90 05/21/16 09:00 100 05/21/16 08:00 98.5 95 20 128/94 93 05/21/16 08:00 93 Room Air 05/21/16 08:00 86 05/21/16 07:00 87 05/21/16 05:00 92 05/21/16 04:10 96 Nasal Cannula 2.00 05/21/16 04:00 97.9 87 18 119/76 99 05/21/16 04:00 80 05/21/16 03:00 92 05/21/16 02:00 94 05/21/16 01:00 92 05/21/16 00:00 96 Nasal Cannula 2.00 05/21/16 00:00 96 05/21/16 00:00 98.0 88 18 101/59 99 05/20/16 23:00 90 05/20/16 22:00 94 05/20/16 21:00 94 05/20/16 20:00 108 05/20/16 20:00 98.0 87 18 155/88 99 05/20/16 19:25 96 Nasal Cannula 2.00 05/20/16 19:00 96 05/20/16 18:00 87 05/20/16 17:00 90 05/20/16 16:45 97.8 86 20 132/99 94 05/20/16 16:30 92 Room Air I/O 05/20/16 05/20/16 05/20/16 05/21/16 05/21/16 05/21/16 07:00 15:00 23:00 07:00 15:00 23:00 Intake Total 480 ml 480 ml 480 ml Output Total 850 ml 1400 ml 2700 ml Balance -370 ml -920 ml -2220 ml Intake Oral 480 ml 480 ml 480 ml Output Urine Total 850 ml 1400 ml 2700 ml # Voids 2 # Bowel Movements 0 Physical Exam GENERAL: SKIN: Warm and dry. HEAD: Normocephalic. EYES: No scleral icterus. No injection or drainage. NECK: Supple, trachea midline. No JVD or lymphadenopathy. CARDIOVASCULAR: Regular rate and rhythm without murmurs, gallops, or rubs. RESPIRATORY: Breath sounds equal bilaterally. No accessory muscle use. GASTROINTESTINAL: Abdomen soft, non-tender, nondistended. MUSCULOSKELETAL: No cyanosis, or edema. BACK: Nontender without obvious deformity. No CVA tenderness. Laboratory Laboratory Tests Test 05/20/16 05/21/16 17:45 05:10 B-Type Natriuretic Peptide 262 PG/ML 462 PG/ML White Blood Count 7.2 TH/MM3 Red Blood Count 5.22 MIL/MM3 Hemoglobin 13.5 GM/DL Hematocrit 41.8 % Mean Corpuscular Volume 80.1 FL Mean Corpuscular Hemoglobin 25.9 PG Mean Corpuscular Hemoglobin 32.3 % Concent Red Cell Distribution Width 19.1 % Platelet Count 261 TH/MM3 Mean Platelet Volume 8.5 FL Neutrophils (%) (Auto) 64.3 % Lymphocytes (%) (Auto) 16.6 % Monocytes (%) (Auto) 14.9 % Eosinophils (%) (Auto) 3.6 % Basophils (%) (Auto) 0.6 % Neutrophils # (Auto) 4.6 TH/MM3 Lymphocytes # (Auto) 1.2 TH/MM3 Monocytes # (Auto) 1.1 TH/MM3 Eosinophils # (Auto) 0.3 TH/MM3 Basophils # (Auto) 0.0 TH/MM3 CBC Comment DIFF FINAL Differential Comment Sodium Level 139 MEQ/L Potassium Level 4.2 MEQ/L Chloride Level 97 MEQ/L Carbon Dioxide Level 36.2 MEQ/L Anion Gap 6 MEQ/L Blood Urea Nitrogen 24 MG/DL Creatinine 1.25 MG/DL Estimat Glomerular Filtration 63 ML/MIN Rate Random Glucose 100 MG/DL Calcium Level 9.2 MG/DL Magnesium Level 2.2 MG/DL Assessment and Plan Problem List: (1) New onset atrial fibrillation (2) Pulmonary congestion (3) CHF (congestive heart failure) (4) Tobacco abuse (5) Atrial fibrillation with RVR (6) Congestive heart failure, unspecified (7) Congestive heart failure (8) Cardiomyopathy Assessment and Plan 1.) Non ischemic Cardiomyopathy - continue aldactone 50 bid, lasix to 40 iv bid , increase coreg 6.25 mg bid, altace 5 mg qd, f/u bnp/bmp; transfer [facility] for [facility] eval 2.) AF - rate controlled on dig, dilt, coreg, continue lovenox, f/u cbc, 3.) Advised patient to dc tobacco 4.) CAD - on lovenox for now, rec statin Problem Qualifiers (1) Congestive heart failure: Qualified Code: I50.9 - Acute congestive heart failure, unspecified congestive heart failure type Jean Claude Winston MD May 21, 2016 15:38
[2016-05-22] VITALS (24 sets, daily range): BP systolic 115–135; BP diastolic 58–98; PULSE 87–106; RESP 16–20; TEMP 97.9–98.8; O2SAT 93–98
[2016-05-22] MEDS: ENOXAPARIN SODIUM 150 MG/ML SYRINGE SQ SCH ×2 (06:00→18:00)
[2016-05-22 06:12] LABS: HEMATOCRIT 46.1 % (39.0-51.0); MEAN CELL VOLUME 80.9 FL (80.0-100.0); MEAN CORPUSCULAR HEMOGLOBIN 25.1 PG (27.0-34.0); PLATELET COUNT 260 TH/MM3 (150-450); RED BLOOD COUNT 5.69 MIL/MM3 (4.50-5.90); RED CELL DISTRIBUTION WIDTH 19.3 % (11.6-17.2); REVIEW FLAG FINAL; WHITE BLOOD COUNT 6.8 TH/MM3 (4.0-11.0)
[2016-05-22 06:55] LABS: BICARBONATE 37.2 MEQ/L (21.0-32.0); HDL CHOLESTEROL 28.9 MG/DL (40.0-60.0); POTASSIUM 4.3 MEQ/L (3.5-5.1)
[2016-05-22] MEDS: FUROSEMIDE 40 MG/4 ML VIAL IV PUSH SCH ×2 (08:34→18:13)
[2016-05-22] MEDS: SPIRONOLACTONE 50 MG TAB PO SCH ×2 (08:35→18:13)
[2016-05-22] MEDS: CARVEDILOL 6.25 MG TAB PO SCH ×2 (08:35→20:14)
[2016-05-22] MEDS: MAGNESIUM OXIDE 400 MG TAB PO SCH ×2 (08:35→20:14)
[2016-05-22] MEDS: RAMIPRIL 5 MG CAP PO SCH (08:35)
[2016-05-22] MEDS: SODIUM CHLORIDE 0.9% FLUSH 10 ML FLUSH IV FLUSH SCH ×2 (08:36→20:22)
[2016-05-22] MEDS: SODIUM CHLORIDE 0.9% FLUSH 10 ML FLUSH SCH ×2 (08:36→20:14)
--- NOTE | 2016-05-22 10:59 | HHI.PR ---
Subjective Remarks resting comfortably with no distress. denies chest pain or sob. no new complaints. Objective Vitals Vital Signs Date Time Temp Pulse Resp B/P Pulse Ox O2 Delivery O2 Flow Rate FiO2 05/22/16 10:25 18 05/22/16 10:23 95 05/22/16 09:36 99 05/22/16 08:52 100 05/22/16 07:48 96 Nasal Cannula 2.00 05/22/16 07:48 98 05/22/16 07:48 98.5 97 20 131/98 96 05/22/16 06:25 103 05/22/16 05:00 88 05/22/16 04:00 92 05/22/16 03:00 88 05/22/16 03:00 96 Nasal Cannula 2.00 05/22/16 03:00 98.2 93 16 115/58 97 05/22/16 02:00 94 05/22/16 01:00 94 05/22/16 00:00 92 05/21/16 23:00 96 Nasal Cannula 2.00 05/21/16 23:00 96 05/21/16 23:00 97.6 94 16 111/60 97 05/21/16 22:00 96 05/21/16 21:00 95 05/21/16 20:00 100 05/21/16 19:00 98 05/21/16 19:00 97 Nasal Cannula 2.00 05/21/16 19:00 98.2 100 16 106/67 97 05/21/16 19:00 97 Nasal Cannula 2.00 05/21/16 18:00 98 05/21/16 17:00 96 05/21/16 16:00 96 05/21/16 15:00 97 Nasal Cannula 2.00 05/21/16 15:00 98 05/21/16 15:00 98.4 71 20 141/93 97 05/21/16 14:00 96 05/21/16 13:00 96 05/21/16 12:00 98.1 98 20 123/69 97 05/21/16 12:00 98 05/21/16 12:00 97 Nasal Cannula 2.00 05/21/16 11:44 95 21 05/21/16 11:00 87 I/O 05/21/16 05/21/16 05/21/16 05/22/16 05/22/1617 07:00 15:00 23:00 07:00 15:00 23:00 Intake Total 480 ml 720 ml 800 ml Output Total 2700 ml 1550 ml 1300 ml Balance -2220 ml -830 ml -500 ml Intake Oral 480 ml 720 ml 800 ml IV Total 0 ml Output Urine Total 2700 ml 1550 ml 1300 ml # Bowel Movements 2 0 Result Diagram: 05/22/16 0518 05/22/16 0518 Imaging Last Impressions Abdomen/Pelvis CT 05/16/162205 Signed Impressions: Service Date/Time: Monday, May 16, 2016 23:18 - CONCLUSION: 1. Suspected mild fatty infiltration of the liver. 2. Mild ascites seen in the left paracolic gutter region and around the spleen. 3. Minimal hazy density at the root of the mesentery. This is nonspecific. 4. Superficial edema seen throughout. Jerome Pina MD Chest X-Ray 05/16/16 0000 Signed Impressions: Service Date/Time: Monday, May 16, 2016 23:51 - CONCLUSION: Cardiomegaly with diffuse increased density likely related to CHF. Jerome Pina MD Objective Remarks GENERAL: obese, in no apparent distress. CARDIOVASCULAR: Regular rate and regular rhythm without murmurs, gallops, or rubs. RESPIRATORY: Clear to auscultation. Breath sounds equal bilaterally. No wheezes , rales, or rhonchi. GASTROINTESTINAL: Abdomen soft, non-tender, nondistended. Normal, active bowel sounds MUSCULOSKELETAL: Extremities without clubbing, cyanosis, or edema. NEURO: Alert & Oriented x4 to person, place, time, situation. Moves all ext x4 Procedures cardiac cath Medications and IVs Current Medications Sodium Chloride (NS Flush) 2 ml UNSCH PRN IV FLUSH FLUSH AFTER USING IV ACCESS ; Start 05/16/16 at 22:15; Stop 05/17/16 at 16:25; Status DC Lorazepam (Ativan Inj) 1 mg ONCE ONCE IV PUSH Last administered on 05/16/16 23 :13; Start 05/16/16 at 22:15; Stop 05/16/16 at 22:16; Status DC Iohexol (Omnipaque 350 Inj) 100 ml STK-MED ONCE IV Last administered on 23:20; Start 05/16/16 at 23:20; Stop 05/16/16 at 23:21; Status DC Furosemide (Lasix Inj) 40 mg ONCE ONCE IV PUSH Last administered on 05/17/16 01:05; Start 05/17/16 at 00:15; Stop 05/17/16 at 14:25; Status DC Diltiazem HCl 20 mg 20 mg ONCE ONCE IV Last administered on 05/17/16 01:46; Start 05/17/16 at 01:30; Stop 05/17/16 at 01:31; Status DC Diltiazem HCl/ Sodium Chloride (Cardizem Inj/NS Inj) 125 ml @ 0 mls/hr TITRATE IV Last administered on 05/18/16 00:44; Start 05/17/16 at 01:45; Stop 05/19/16 at 20:06; Status DC Enoxaparin Sodium (Lovenox Inj) 150 mg ONCE ONCE SQ Last administered on 02:59; Start 05/17/16 at 02:15; Stop 05/17/16 at 02:16; Status DC Furosemide (Lasix Inj) 40 mg BID@09,18 IV PUSH Last administered on 05/17/16 09 :07; Start 05/17/16 at 09:00; Stop 05/17/16 at 14:25; Status DC Sodium Chloride (NS Flush) 2 ml UNSCH PRN IV FLUSH FLUSH AFTER USING IV ACCESS ; Start 05/17/16 at 02:15 Sodium Chloride (NS Flush) 2 ml BID IV FLUSH Last administered on 05/22/16 08: 36; Start 05/17/16 at 09:00 Ondansetron HCl (Zofran Inj) 4 mg Q6H PRN IVP NAUSEA OR VOMITING; Start at 02:15 Bisacodyl (Dulcolax Supp) 10 mg DAILY PRN RECTAL CONSTIPATION; Start 05/17/16 at 02:15 Acetaminophen (Tylenol) 650 mg Q6H PRN PO FEVER/PAIN SCALE 1 TO 2 Last administered on 05/22/16 08:41; Start 05/17/16 at 02:15 Acetaminophen/ Hydrocodone Bitart ([place] 5-325 Mg) 1 tab Q4H PRN PO PAIN SCALE 3 TO 5 Last administered on 05/18/16 20:17; Start 05/17/16 at 02:15 Morphine Sulfate (Morphine Inj) 2 mg Q3H PRN IV Pain 6-10; Start 05/17/16 at 02: 15 Warfarin Sodium (Coumadin) 4 mg DAILY@16 PO ; Start 05/17/16 at 16:00; Stop at 16:00; Status DC Patient Medication Teaching (Coumadin Booklet) 1 ONCE ONCE .XX Last administered on 05/17/16 16:11; Start 05/17/16 at 16:00; Stop 05/17/16 at 16:01; Status DC Warfarin Sodium (Coumadin) 8 mg DAILY@16 PO ; Start 05/17/16 at 16:00; Status Hold Furosemide (Lasix Inj) 40 mg TID IV PUSH Last administered on 05/18/16 08:55; Start 05/17/16 at 18:00; Stop 05/18/16 at 11:07; Status DC Ramipril (Altace) 2.5 mg ONCE ONCE PO Last administered on 05/17/16 16:15; Start 05/17/16 at 15:45; Stop 05/17/16 at 15:52; Status DC Ramipril (Altace) 2.5 mg DAILY PO Last administered on 05/19/16 08:40; Start 05/18/16 at 09:00; Stop 05/19/16 at 09:14; Status DC Carvedilol (Coreg) 3.125 mg ONCE ONCE PO Last administered on 05/17/16 16:10; Start 05/17/16 at 15:45; Stop 05/17/16 at 15:54; Status DC Carvedilol (Coreg) 3.125 mg Q12HR PO Last administered on 05/19/16 08:40; Start 05/17/16 at 21:00; Stop 05/19/16 at 09:14; Status DC Digoxin (Lanoxin Inj) 0.5 mg ONCE ONCE IV PUSH Last administered on 05/17/16 16:09; Start 05/17/16 at 15:45; Stop 05/17/16 at 15:56; Status DC Spironolactone (Aldactone) 25 mg ONCE ONCE PO Last administered on 05/17/16 16 :10; Start 05/17/16 at 15:45; Stop 05/17/16 at 15:51; Status DC Spironolactone (Aldactone) 25 mg BID@,18 PO Last administered on 05/18/16 08: 55; Start 05/17/16 at 18:00; Stop 05/18/16 at 11:07; Status DC Enoxaparin Sodium (Lovenox Inj) 150 mg Q12H SQ Last administered on 05/22/16 06:00; Start 05/17/16 at 18:00 Spironolactone (Aldactone) 50 mg BID@,18 PO Last administered on 05/22/16 08 :35; Start 05/18/16 at 18:00 Furosemide (Lasix Inj) 20 mg BID@,18 IV PUSH Last administered on 05/20/16 09:29; Start 05/18/16 at 18:00; Stop 05/20/16 at 16:08; Status DC Ramipril (Altace) 5 mg DAILY PO Last administered on 05/22/16 08:35; Start 12/26 at 09:00 Carvedilol 6.25 mg 6.25 mg Q12HR PO Last administered on 05/22/16 08:35; Start 05/19/16 at 21:00 Heparin Sodium/ Sodium Chloride (Heparin-NS/Pf Inj) 500 ml @ As Directed STK- MED ONCE .ROUTE Last administered on 05/20/16 15:22; Start 05/20/16 at 15:22; Stop 05/20/16 at 15:23; Status DC Furosemide (Lasix Inj) 40 mg STK-MED ONCE .ROUTE Last administered on 15:53; Start 05/20/16 at 15:53; Stop 05/20/16 at 15:54; Status DC Sodium Chloride (NS Flush) 2 ml BID .XX Last administered on 05/22/16 08:36; Start 05/20/16 at 21:00 Sodium Chloride (NS Flush) 2 ml UNSCH PRN .XX FLUSH AFTER USING IV ACCESS; Start 05/20/16 at 16:15 Miscellaneous Information 1 ONCE ONCE XX ; Start 05/20/16 at 16:15; Stop at 16:16; Status DC Furosemide (Lasix Inj) 40 mg BID@,18 IV PUSH Last administered on 05/22/16 08:34; Start 05/20/16 at 18:00 Magnesium Oxide (Mag-Ox) 400 mg ONCE ONCE PO Last administered on 05/20/16 16 :15; Start 05/20/16 at 16:15; Stop 05/20/16 at 16:16; Status DC Magnesium Oxide (Mag-Ox) 400 mg Q12HR PO Last administered on 05/22/16 08:35; Start 05/20/16 at 21:00 Iohexol (OMNIPAQUE 350 INJ (Orthopedic Physician Assistant)) 100 ml STK-MED ONCE OTHER ; Start at 16:00; Stop 05/21/16 at 08:29; Status DC A/P Assessment and Plan A/P nonischemic cardiomyopathy - Echo shows a 20-25% EF -s/p cardiac cath with mild two vessel disease and EF 20% - continue lasix and aldactone - PATRICE Inhibitor continued - Beta Desean continued -cardiology following and recommended transfer to [facility] for heart transplant. A-fib RVR Respiratory Distress - RVR has improved - Continue Beta Desean - Follow on Telemetry - Cardiology following - Continue PRN Oxygen - Follow on pulse ox -continue lovenox- coumadin on hold Tabacco Abuse - counseled to quit Discharge Planning plan for possible transfer to [facility] for heart transplant. d/w the case management. Naima Garcia MD May 22, 2016 10:59
--- NOTE | 2016-05-22 13:21 | PD.CARD.PN ---
Subjective Subjective Remarks alert in nad, feels better Objective Vital Signs / I&O Vital Signs Date Time Temp Pulse Resp B/P Pulse Ox O2 Delivery O2 Flow Rate FiO2 05/22/16 11:33 97.9 96 20 115/78 98 05/22/16 11:33 98 Nasal Cannula 2.00 05/22/16 11:33 96 05/22/16 10:25 18 05/22/16 10:23 95 05/22/16 09:36 99 05/22/16 08:52 100 05/22/16 07:48 96 Nasal Cannula 2.00 05/22/16 07:48 98 05/22/16 07:48 98.5 97 20 131/98 96 05/22/16 06:25 103 05/22/16 05:00 88 05/22/16 04:00 92 05/22/16 03:00 88 05/22/16 03:00 96 Nasal Cannula 2.00 05/22/16 03:00 98.2 93 16 115/58 97 05/22/16 02:00 94 05/22/16 01:00 94 05/22/16 00:00 92 05/21/16 23:00 96 Nasal Cannula 2.00 05/21/16 23:00 96 05/21/16 23:00 97.6 94 16 111/60 97 05/21/16 22:00 96 05/21/16 21:00 95 05/21/16 20:00 100 05/21/16 19:00 98 05/21/16 19:00 97 Nasal Cannula 2.00 05/21/16 19:00 98.2 100 16 106/67 97 05/21/16 19:00 97 Nasal Cannula 2.00 05/21/16 18:00 98 05/21/16 17:00 96 05/21/16 16:00 96 05/21/16 15:00 97 Nasal Cannula 2.00 05/21/16 15:00 98 05/21/16 15:00 98.4 71 20 141/93 97 05/21/16 14:00 96 I/O 05/21/16 05/21/16 05/21/16 05/22/16 05/22/16 05/22/16 07:00 15:00 23:00 07:00 15:00 23:00 Intake Total 480 ml 720 ml 800 ml Output Total 2700 ml 1550 ml 1300 ml Balance -2220 ml -830 ml -500 ml Intake Oral 480 ml 720 ml 800 ml IV Total 0 ml Output Urine Total 2700 ml 1550 ml 1300 ml # Bowel Movements 2 0 Physical Exam GENERAL: SKIN: Warm and dry. HEAD: Normocephalic. EYES: No scleral icterus. No injection or drainage. NECK: Supple, trachea midline. No JVD or lymphadenopathy. CARDIOVASCULAR: Regular rate and rhythm without murmurs, gallops, or rubs. RESPIRATORY: Breath sounds equal bilaterally. No accessory muscle use. GASTROINTESTINAL: Abdomen soft, non-tender, nondistended. MUSCULOSKELETAL: No cyanosis, or edema. BACK: Nontender without obvious deformity. No CVA tenderness. Laboratory Laboratory Tests Test 05/22/16 05:18 White Blood Count 6.8 TH/MM3 Red Blood Count 5.69 MIL/MM3 Hemoglobin 14.3 GM/DL Hematocrit 46.1 % Mean Corpuscular Volume 80.9 FL Mean Corpuscular Hemoglobin 25.1 PG Mean Corpuscular Hemoglobin 31.0 % Concent Red Cell Distribution Width 19.3 % Platelet Count 260 TH/MM3 Mean Platelet Volume 8.4 FL Sodium Level 138 MEQ/L Potassium Level 4.3 MEQ/L Chloride Level 97 MEQ/L Carbon Dioxide Level 37.2 MEQ/L Anion Gap 4 MEQ/L Blood Urea Nitrogen 24 MG/DL Creatinine 1.29 MG/DL Estimat Glomerular Filtration 61 ML/MIN Rate Random Glucose 120 MG/DL Calcium Level 9.1 MG/DL Total Creatine Kinase 41 U/L B-Type Natriuretic Peptide 331 PG/ML Triglycerides Level 119 MG/DL Cholesterol Level 159 MG/DL LDL Cholesterol 106 MG/DL HDL Cholesterol 28.9 MG/DL Cholesterol/HDL Ratio 5.50 RATIO Assessment and Plan Problem List: (1) New onset atrial fibrillation (2) Pulmonary congestion (3) CHF (congestive heart failure) (4) Tobacco abuse (5) Atrial fibrillation with RVR (6) Congestive heart failure, unspecified (7) Congestive heart failure (8) Cardiomyopathy Assessment and Plan 1.) Non ischemic Cardiomyopathy - continue aldactone 50 bid, lasix to 40 iv bid , increase coreg 6.25 mg bid, altace 5 mg qd, f/u bnp/bmp; transfer [facility] for heart transplant eval when bed available 2.) AF - rate controlled on dig, dilt, coreg, continue lovenox, f/u cbc, 3.) Advised patient to dc tobacco 4.) CAD - on lovenox for now, start lipitor 20 mg hs Problem Qualifiers (1) Congestive heart failure: Qualified Code: I50.9 - Acute congestive heart failure, unspecified congestive heart failure type Jean Claude Winston MD May 22, 2016 13:21
[2016-05-22] MEDS: ATORVASTATIN 20 MG TAB PO SCH (20:14)
[2016-05-22] MEDS: ACETAMINOPHEN/HYDROcodone 325 MG/5 MG TAB PO PRN (20:22)
[2016-05-23] VITALS (26 sets, daily range): BP systolic 103–139; BP diastolic 77–94; PULSE 79–118; RESP 16–18; TEMP 97.4–98.5; O2SAT 95–97
[2016-05-23] MEDS: ENOXAPARIN SODIUM 150 MG/ML SYRINGE SQ SCH ×2 (05:33→18:00)
[2016-05-23 06:27] LABS: MEAN CELL VOLUME 79.9 FL (80.0-100.0); MEAN CORPUSCULAR HEMOGLOBIN 25.7 PG (27.0-34.0); MEAN CORPUSCULAR HGB CONC 32.1 % (32.0-36.0); PLATELET COUNT 259 TH/MM3 (150-450); RED CELL DISTRIBUTION WIDTH 19.5 % (11.6-17.2); REVIEW FLAG FINAL; WHITE BLOOD COUNT 7.3 TH/MM3 (4.0-11.0)
[2016-05-23 06:51] LABS: BICARBONATE 35.6 MEQ/L (21.0-32.0); POTASSIUM 4.6 MEQ/L (3.5-5.1)
[2016-05-23] MEDS: MAGNESIUM OXIDE 400 MG TAB PO SCH ×2 (08:57→20:44)
[2016-05-23] MEDS: CARVEDILOL 6.25 MG TAB PO SCH ×2 (08:57→20:44)
[2016-05-23] MEDS: RAMIPRIL 5 MG CAP PO SCH (08:57)
[2016-05-23] MEDS: SPIRONOLACTONE 50 MG TAB PO SCH ×2 (08:57→18:00)
[2016-05-23] MEDS: SODIUM CHLORIDE 0.9% FLUSH 10 ML FLUSH SCH ×2 (08:58→20:45)
[2016-05-23] MEDS: SODIUM CHLORIDE 0.9% FLUSH 10 ML FLUSH IV FLUSH SCH ×2 (08:58→20:45)
[2016-05-23] MEDS ORDERED: FUROSEMIDE 20 MG/2 ML VIAL IV PUSH SCH (09:00)
--- NOTE | 2016-05-23 09:25 | HHI.PR ---
Subjective Remarks in no acute distress. denies chest pain or sob. no new complaints. Objective Vitals Vital Signs Date Time Temp Pulse Resp B/P Pulse Ox O2 Delivery O2 Flow Rate FiO2 05/23/16 06:01 103 05/23/16 05:09 96 05/23/16 04:00 93 05/23/16 03:58 96 05/23/16 03:54 97.7 91 18 103/77 95 05/23/16 03:00 97 Nasal Cannula 2.00 05/23/16 02:00 98 05/23/16 01:00 100 05/23/16 00:00 92 05/22/16 23:02 92 Room Air 05/22/16 23:00 91 05/22/16 23:00 98.8 100 16 119/68 98 05/22/16 23:00 91 05/22/16 22:00 98 05/22/16 21:00 106 05/22/16 20:00 100 05/22/16 19:00 93 Room Air 05/22/16 19:00 100 05/22/16 19:00 98.0 102 18 126/93 93 05/22/16 18:24 96 05/22/16 17:34 96 05/22/16 17:32 98 21 05/22/16 16:29 101 05/22/16 15:39 98 05/22/16 15:39 98 Nasal Cannula 2.00 05/22/16 15:39 98.5 87 18 135/95 98 05/22/16 14:18 94 05/22/16 13:23 87 05/22/16 11:33 97.9 96 20 115/78 98 05/22/16 11:33 98 Nasal Cannula 2.00 05/22/16 11:33 96 05/22/16 10:25 18 05/22/16 10:23 95 05/22/16 09:36 99 I/O 05/22/16 05/22/16 05/22/16 05/23/16 05/23/16 05/23/16 07:00 15:00 23:00 07:00 15:00 23:00 Intake Total 800 ml 960 ml 800 ml Output Total 1300 ml 960 ml 2000 ml Balance -500 ml 0 ml -1200 ml Intake Oral 800 ml 960 ml 800 ml IV Total 0 ml 0 ml Output Urine Total 1300 ml 960 ml 2000 ml # Bowel Movements 0 1 0 Result Diagram: 05/23/16 0517 05/23/16 0511 Imaging Last Impressions Abdomen/Pelvis CT 05/16/166 Signed Impressions: Service Date/Time: Monday, May 16, 2016 23:18 - CONCLUSION: 1. Suspected mild fatty infiltration of the liver. 2. Mild ascites seen in the left paracolic gutter region and around the spleen. 3. Minimal hazy density at the root of the mesentery. This is nonspecific. 4. Superficial edema seen throughout. Jerome Pina MD Chest X-Ray 05/16/16 0000 Signed Impressions: Service Date/Time: Monday, May 16, 2016 23:51 - CONCLUSION: Cardiomegaly with diffuse increased density likely related to CHF. Jerome Pina MD Objective Remarks GENERAL: obese, in no apparent distress. CARDIOVASCULAR: Regular rate and regular rhythm without murmurs, gallops, or rubs. RESPIRATORY: Clear to auscultation. Breath sounds equal bilaterally. No wheezes , rales, or rhonchi. GASTROINTESTINAL: Abdomen soft, non-tender, nondistended. Normal, active bowel sounds MUSCULOSKELETAL: Extremities without clubbing, cyanosis, or edema. NEURO: Alert & Oriented x4 to person, place, time, situation. Moves all ext x4 Procedures cardiac cath Medications and IVs Current Medications Sodium Chloride (NS Flush) 2 ml UNSCH PRN IV FLUSH FLUSH AFTER USING IV ACCESS ; Start 05/16/16 at 22:15; Stop 05/17/16 at 16:25; Status DC Lorazepam (Ativan Inj) 1 mg ONCE ONCE IV PUSH Last administered on 05/16/16 23 :13; Start 05/16/16 at 22:15; Stop 05/16/16 at 22:16; Status DC Iohexol (Omnipaque 350 Inj) 100 ml STK-MED ONCE IV Last administered on 23:20; Start 05/16/16 at 23:20; Stop 05/16/16 at 23:21; Status DC Furosemide (Lasix Inj) 40 mg ONCE ONCE IV PUSH Last administered on 05/17/16 01:05; Start 05/17/16 at 00:15; Stop 05/17/16 at 14:25; Status DC Diltiazem HCl 20 mg 20 mg ONCE ONCE IV Last administered on 05/17/16 01:46; Start 05/17/16 at 01:30; Stop 05/17/16 at 01:31; Status DC Diltiazem HCl/ Sodium Chloride (Cardizem Inj/NS Inj) 125 ml @ 0 mls/hr TITRATE IV Last administered on 05/18/16 00:44; Start 05/17/16 at 01:45; Stop 05/19/16 at 20:06; Status DC Enoxaparin Sodium (Lovenox Inj) 150 mg ONCE ONCE SQ Last administered on 02:59; Start 05/17/16 at 02:15; Stop 05/17/16 at 02:16; Status DC Furosemide (Lasix Inj) 40 mg BID@09,18 IV PUSH Last administered on 05/17/16 09 :07; Start 05/17/16 at 09:00; Stop 05/17/16 at 14:25; Status DC Sodium Chloride (NS Flush) 2 ml UNSCH PRN IV FLUSH FLUSH AFTER USING IV ACCESS ; Start 05/17/16 at 02:15 Sodium Chloride (NS Flush) 2 ml BID IV FLUSH Last administered on 05/23/16 08: 58; Start 05/17/16 at 09:00 Ondansetron HCl (Zofran Inj) 4 mg Q6H PRN IVP NAUSEA OR VOMITING; Start at 02:15 Bisacodyl (Dulcolax Supp) 10 mg DAILY PRN RECTAL CONSTIPATION; Start 05/17/16 at 02:15 Acetaminophen (Tylenol) 650 mg Q6H PRN PO FEVER/PAIN SCALE 1 TO 2 Last administered on 05/22/16 08:41; Start 05/17/16 at 02:15 Acetaminophen/ Hydrocodone Bitart ([place] 5-325 Mg) 1 tab Q4H PRN PO PAIN SCALE 3 TO 5 Last administered on 05/22/16 20:22; Start 05/17/16 at 02:15 Morphine Sulfate (Morphine Inj) 2 mg Q3H PRN IV Pain 6-10; Start 05/17/16 at 02: 15 Warfarin Sodium (Coumadin) 4 mg DAILY@16 PO ; Start 05/17/16 at 16:00; Stop at 16:00; Status DC Patient Medication Teaching (Coumadin Booklet) 1 ONCE ONCE .XX Last administered on 05/17/16 16:11; Start 05/17/16 at 16:00; Stop 05/17/16 at 16:01; Status DC Warfarin Sodium (Coumadin) 8 mg DAILY@16 PO ; Start 05/17/16 at 16:00; Status Hold Furosemide (Lasix Inj) 40 mg TID IV PUSH Last administered on 05/18/16 08:55; Start 05/17/16 at 18:00; Stop 05/18/16 at 11:07; Status DC Ramipril (Altace) 2.5 mg ONCE ONCE PO Last administered on 05/17/16 16:15; Start 05/17/16 at 15:45; Stop 05/17/16 at 15:52; Status DC Ramipril (Altace) 2.5 mg DAILY PO Last administered on 05/19/16 08:40; Start 05/18/16 at 09:00; Stop 05/19/16 at 09:14; Status DC Carvedilol (Coreg) 3.125 mg ONCE ONCE PO Last administered on 05/17/16 16:10; Start 05/17/16 at 15:45; Stop 05/17/16 at 15:54; Status DC Carvedilol (Coreg) 3.125 mg Q12HR PO Last administered on 05/19/16 08:40; Start 05/17/16 at 21:00; Stop 05/19/16 at 09:14; Status DC Digoxin (Lanoxin Inj) 0.5 mg ONCE ONCE IV PUSH Last administered on 05/17/16 16:09; Start 05/17/16 at 15:45; Stop 05/17/16 at 15:56; Status DC Spironolactone (Aldactone) 25 mg ONCE ONCE PO Last administered on 05/17/16 16 :10; Start 05/17/16 at 15:45; Stop 05/17/16 at 15:51; Status DC Spironolactone (Aldactone) 25 mg BID@,18 PO Last administered on 05/18/16 08: 55; Start 05/17/16 at 18:00; Stop 05/18/16 at 11:07; Status DC Enoxaparin Sodium (Lovenox Inj) 150 mg Q12H SQ Last administered on 05/23/16 05:33; Start 05/17/16 at 18:00 Spironolactone (Aldactone) 50 mg BID@09,18 PO Last administered on 05/23/16 08 :57; Start 05/18/16 at 18:00 Furosemide (Lasix Inj) 20 mg BID@,18 IV PUSH Last administered on 05/20/16 09:29; Start 05/18/16 at 18:00; Stop 05/20/16 at 16:08; Status DC Ramipril (Altace) 5 mg DAILY PO Last administered on 05/23/16 08:57; Start 12/26 at 09:00 Carvedilol 6.25 mg 6.25 mg Q12HR PO Last administered on 05/23/16 08:57; Start 05/19/16 at 21:00 Heparin Sodium/ Sodium Chloride (Heparin-NS/Pf Inj) 500 ml @ As Directed STK- MED ONCE .ROUTE Last administered on 05/20/16 15:22; Start 05/20/16 at 15:22; Stop 05/20/16 at 15:23; Status DC Furosemide (Lasix Inj) 40 mg STK-MED ONCE .ROUTE Last administered on 15:53; Start 05/20/16 at 15:53; Stop 05/20/16 at 15:54; Status DC Sodium Chloride (NS Flush) 2 ml BID .XX Last administered on 05/23/16 08:58; Start 05/20/16 at 21:00 Sodium Chloride (NS Flush) 2 ml UNSCH PRN .XX FLUSH AFTER USING IV ACCESS; Start 05/20/16 at 16:15 Miscellaneous Information 1 ONCE ONCE XX ; Start 05/20/16 at 16:15; Stop at 16:16; Status DC Furosemide (Lasix Inj) 40 mg BID@,18 IV PUSH Last administered on 05/22/16 18:13; Start 05/20/16 at 18:00; Stop 05/23/16 at 08:10; Status DC Magnesium Oxide (Mag-Ox) 400 mg ONCE ONCE PO Last administered on 05/20/16 16 :15; Start 05/20/16 at 16:15; Stop 05/20/16 at 16:16; Status DC Magnesium Oxide (Mag-Ox) 400 mg Q12HR PO Last administered on 05/23/16 08:57; Start 05/20/16 at 21:00 Iohexol (OMNIPAQUE 350 INJ (Wet Trimmer)) 100 ml STK-MED ONCE OTHER ; Start at 16:00; Stop 05/21/16 at 08:29; Status DC Atorvastatin Calcium (Lipitor) 20 mg HS PO Last administered on 05/22/16 20:14 ; Start 05/22/16 at 21:00 Furosemide (Lasix Inj) 20 mg BID@09,18 IV PUSH Last administered on 05/23/16 08:57; Start 05/23/16 at 09:00 A/P Assessment and Plan A/P nonischemic cardiomyopathy - Echo shows a 20-25% EF -s/p cardiac cath with mild two vessel disease and EF 20% - continue lasix ; will decrease the dose -continue aldactone - PATRICE Inhibitor continued - Beta Desean continued -cardiology following and recommended transfer to [facility] for heart transplant. A-fib RVR Respiratory Distress - RVR has improved - Continue Beta Desean - Follow on Telemetry - Cardiology following - Continue PRN Oxygen - Follow on pulse ox -continue lovenox- coumadin on hold acute kidney injury- likely due to diuretics- will decrease the dose of lasix continue to monitor Tabacco Abuse - counseled to quit DVT prophylaxis with subq Lovenox Discharge Planning plan for transfer to [facility] for heart transplant. Naima Garcia MD May 23, 2016 09:25 Naima Garcia MD May 23, 2016 09:25
--- NOTE | 2016-05-23 10:58 | PD.CARD.PN ---
Subjective Subjective Remarks alert in nad Objective Vital Signs / I&O Vital Signs Date Time Temp Pulse Resp B/P Pulse Ox O2 Delivery O2 Flow Rate FiO2 05/23/16 10:00 102 05/23/16 09:00 98 05/23/16 08:00 96 05/23/16 07:30 98.1 95 18 139/83 97 05/23/16 07:00 98 05/23/16 07:00 97 Nasal Cannula 2.00 05/23/16 06:01 103 05/23/16 05:09 96 05/23/16 04:00 93 05/23/16 03:58 96 05/23/16 03:54 97.7 91 18 103/77 95 05/23/16 03:00 97 Nasal Cannula 2.00 05/23/16 02:00 98 05/23/16 01:00 100 05/23/16 00:00 92 05/22/16 23:02 92 Room Air 05/22/16 23:00 91 05/22/16 23:00 98.8 100 16 119/68 98 05/22/16 23:00 91 05/22/16 22:00 98 05/22/16 21:00 106 05/22/16 20:00 100 05/22/16 19:00 93 Room Air 05/22/16 19:00 100 05/22/16 19:00 98.0 102 18 126/93 93 05/22/16 18:24 96 05/22/16 17:34 96 05/22/16 17:32 98 21 05/22/16 16:29 101 05/22/16 15:39 98 05/22/16 15:39 98 Nasal Cannula 2.00 05/22/16 15:39 98.5 87 18 135/95 98 05/22/16 14:18 94 05/22/16 13:23 87 05/22/16 11:33 97.9 96 20 115/78 98 05/22/16 11:33 98 Nasal Cannula 2.00 05/22/16 11:33 96 I/O 05/22/16 05/22/16 05/22/16 05/23/16 05/23/16 05/23/16 07:00 15:00 23:00 07:00 15:00 23:00 Intake Total 800 ml 960 ml 800 ml Output Total 1300 ml 960 ml 2000 ml Balance -500 ml 0 ml -1200 ml Intake Oral 800 ml 960 ml 800 ml IV Total 0 ml 0 ml Output Urine Total 1300 ml 960 ml 2000 ml # Bowel Movements 0 1 0 Physical Exam GENERAL: SKIN: Warm and dry. HEAD: Normocephalic. EYES: No scleral icterus. No injection or drainage. NECK: Supple, trachea midline. No JVD or lymphadenopathy. CARDIOVASCULAR: Regular rate and rhythm without murmurs, gallops, or rubs. RESPIRATORY: Breath sounds equal bilaterally. No accessory muscle use. GASTROINTESTINAL: Abdomen soft, non-tender, nondistended. MUSCULOSKELETAL: No cyanosis, or edema. BACK: Nontender without obvious deformity. No CVA tenderness. Laboratory Laboratory Tests Test 05/23/16 05/23/16 05:11 05:17 Sodium Level 136 MEQ/L Potassium Level 4.6 MEQ/L Chloride Level 97 MEQ/L Carbon Dioxide Level 35.6 MEQ/L Anion Gap 3 MEQ/L Blood Urea Nitrogen 23 MG/DL Creatinine 1.45 MG/DL Estimat Glomerular Filtration 53 ML/MIN Rate Random Glucose 130 MG/DL Calcium Level 9.3 MG/DL B-Type Natriuretic Peptide 269 PG/ML White Blood Count 7.3 TH/MM3 Red Blood Count 5.50 MIL/MM3 Hemoglobin 14.1 GM/DL Hematocrit 44.0 % Mean Corpuscular Volume 79.9 FL Mean Corpuscular Hemoglobin 25.7 PG Mean Corpuscular Hemoglobin 32.1 % Concent Red Cell Distribution Width 19.5 % Platelet Count 259 TH/MM3 Mean Platelet Volume 8.4 FL Assessment and Plan Problem List: (1) New onset atrial fibrillation (2) Pulmonary congestion (3) CHF (congestive heart failure) (4) Tobacco abuse (5) Atrial fibrillation with RVR (6) Congestive heart failure, unspecified (7) Congestive heart failure (8) Cardiomyopathy Assessment and Plan 1.) Non ischemic Cardiomyopathy - continue aldactone 50 bid, decrease lasix to 20 iv bid, due to cardio renal syndrome, cont coreg 6.25 mg bid, altace 5 mg qd , f/u bnp/bmp; transfer [facility] for heart transplant eval when bed available 2.) AF - rate controlled on dig, dilt, coreg, continue lovenox, f/u cbc, 3.) Advised patient to dc tobacco 4.) CAD - on lovenox for now, start lipitor 20 mg hs Problem Qualifiers (1) Congestive heart failure: Qualified Code: I50.9 - Acute congestive heart failure, unspecified congestive heart failure type Jean Claude Winston MD May 23, 2016 10:58
[2016-05-23] MEDS: ATORVASTATIN 20 MG TAB PO SCH (20:44)
[2016-05-24] VITALS (16 sets, daily range): BP systolic 101–125; BP diastolic 68–82; PULSE 74–110; RESP 16–18; TEMP 97.4–98.7; O2SAT 94–99
[2016-05-24] MEDS: ENOXAPARIN SODIUM 150 MG/ML SYRINGE SQ SCH (04:09)
--- NOTE | 2016-05-24 08:35 | HHI.PR ---
Subjective Remarks resting comfortably with no distress. denies chest pain or sob. no new complaints. awaiting transfer to [facility]. Objective Vitals Vital Signs Date Time Temp Pulse Resp B/P Pulse Ox O2 Delivery O2 Flow Rate FiO2 05/24/16 08:15 98 Nasal Cannula 2.00 05/24/16 08:15 97.4 91 16 113/76 98 05/24/16 06:00 91 05/24/16 05:00 89 05/24/16 04:00 Nasal Cannula 2.00 05/24/16 04:00 97.5 93 16 101/73 99 05/24/16 04:00 74 05/24/16 03:00 90 05/24/16 02:00 96 05/24/16 01:00 96 05/24/16 00:00 Nasal Cannula 2.00 05/24/16 00:00 74 05/24/16 00:00 98.7 95 16 125/68 97 05/23/16 23:00 98 05/23/16 22:00 100 05/23/16 21:00 118 05/23/16 20:00 98.5 89 16 130/94 97 05/23/16 20:00 107 05/23/16 20:00 Nasal Cannula 2.00 05/23/16 18:00 96 05/23/16 17:00 98 05/23/16 16:00 96 05/23/16 15:00 97 Nasal Cannula 2.00 05/23/16 15:00 92 05/23/16 15:00 97.9 79 18 118/89 96 05/23/16 14:00 100 05/23/16 13:00 96 05/23/16 12:00 96 05/23/16 11:30 96 Nasal Cannula 2.00 05/23/16 11:30 97.4 88 18 132/82 97 05/23/16 11:00 102 05/23/16 10:00 102 05/23/16 09:00 98 I/O 05/23/16 05/23/16 05/23/16 05/24/16 05/24/16 05/24/16 07:00 15:00 23:00 07:00 15:00 23:00 Intake Total 800 ml 720 ml 240 ml Output Total 2000 ml 1150 ml 600 ml Balance -1200 ml -430 ml -360 ml Intake Oral 800 ml 720 ml 240 ml IV Total 0 ml Output Urine Total 2000 ml 1150 ml 600 ml # Bowel Movements 0 Result Diagram: 05/23/16 0517 05/23/16 0511 Imaging Last Impressions Abdomen/Pelvis CT 05/16/166 Signed Impressions: Service Date/Time: Monday, May 16, 2016 23:18 - CONCLUSION: 1. Suspected mild fatty infiltration of the liver. 2. Mild ascites seen in the left paracolic gutter region and around the spleen. 3. Minimal hazy density at the root of the mesentery. This is nonspecific. 4. Superficial edema seen throughout. Jerome Pina MD Chest X-Ray 05/16/16 0000 Signed Impressions: Service Date/Time: Monday, May 16, 2016 23:51 - CONCLUSION: Cardiomegaly with diffuse increased density likely related to CHF. Jerome Pina MD Objective Remarks GENERAL: obese, in no apparent distress. CARDIOVASCULAR: Regular rate and regular rhythm without murmurs, gallops, or rubs. RESPIRATORY: Clear to auscultation. Breath sounds equal bilaterally. No wheezes , rales, or rhonchi. GASTROINTESTINAL: Abdomen soft, non-tender, nondistended. Normal, active bowel sounds MUSCULOSKELETAL: Extremities without clubbing, cyanosis, or edema. NEURO: Alert & Oriented x4 to person, place, time, situation. Moves all ext x4 Procedures cardiac cath Medications and IVs Current Medications Sodium Chloride (NS Flush) 2 ml UNSCH PRN IV FLUSH FLUSH AFTER USING IV ACCESS ; Start 05/16/16 at 22:15; Stop 05/17/16 at 16:25; Status DC Lorazepam (Ativan Inj) 1 mg ONCE ONCE IV PUSH Last administered on 05/16/16 23 :13; Start 05/16/16 at 22:15; Stop 05/16/16 at 22:16; Status DC Iohexol (Omnipaque 350 Inj) 100 ml STK-MED ONCE IV Last administered on 23:20; Start 05/16/16 at 23:20; Stop 05/16/16 at 23:21; Status DC Furosemide (Lasix Inj) 40 mg ONCE ONCE IV PUSH Last administered on 05/17/16 01:05; Start 05/17/16 at 00:15; Stop 05/17/16 at 14:25; Status DC Diltiazem HCl 20 mg 20 mg ONCE ONCE IV Last administered on 05/17/16 01:46; Start 05/17/16 at 01:30; Stop 05/17/16 at 01:31; Status DC Diltiazem HCl/ Sodium Chloride (Cardizem Inj/NS Inj) 125 ml @ 0 mls/hr TITRATE IV Last administered on 05/18/16 00:44; Start 05/17/16 at 01:45; Stop 05/19/16 at 20:06; Status DC Enoxaparin Sodium (Lovenox Inj) 150 mg ONCE ONCE SQ Last administered on 02:59; Start 05/17/16 at 02:15; Stop 05/17/16 at 02:16; Status DC Furosemide (Lasix Inj) 40 mg BID@09,18 IV PUSH Last administered on 05/17/16 09 :07; Start 05/17/16 at 09:00; Stop 05/17/16 at 14:25; Status DC Sodium Chloride (NS Flush) 2 ml UNSCH PRN IV FLUSH FLUSH AFTER USING IV ACCESS ; Start 05/17/16 at 02:15 Sodium Chloride (NS Flush) 2 ml BID IV FLUSH Last administered on 05/23/16 08: 58; Start 05/17/16 at 09:00 Ondansetron HCl (Zofran Inj) 4 mg Q6H PRN IVP NAUSEA OR VOMITING; Start at 02:15 Bisacodyl (Dulcolax Supp) 10 mg DAILY PRN RECTAL CONSTIPATION; Start 05/17/16 at 02:15 Acetaminophen (Tylenol) 650 mg Q6H PRN PO FEVER/PAIN SCALE 1 TO 2 Last administered on 05/22/16 08:41; Start 05/17/16 at 02:15 Acetaminophen/ Hydrocodone Bitart ([place] 5-325 Mg) 1 tab Q4H PRN PO PAIN SCALE 3 TO 5 Last administered on 05/22/16 20:22; Start 05/17/16 at 02:15 Morphine Sulfate (Morphine Inj) 2 mg Q3H PRN IV Pain 6-10; Start 05/17/16 at 02: 15 Warfarin Sodium (Coumadin) 4 mg DAILY@16 PO ; Start 05/17/16 at 16:00; Stop at 16:00; Status DC Patient Medication Teaching (Coumadin Booklet) 1 ONCE ONCE .XX Last administered on 05/17/16 16:11; Start 05/17/16 at 16:00; Stop 05/17/16 at 16:01; Status DC Warfarin Sodium (Coumadin) 8 mg DAILY@16 PO ; Start 05/17/16 at 16:00; Status Hold Furosemide (Lasix Inj) 40 mg TID IV PUSH Last administered on 05/18/16 08:55; Start 05/17/16 at 18:00; Stop 05/18/16 at 11:07; Status DC Ramipril (Altace) 2.5 mg ONCE ONCE PO Last administered on 05/17/16 16:15; Start 05/17/16 at 15:45; Stop 05/17/16 at 15:52; Status DC Ramipril (Altace) 2.5 mg DAILY PO Last administered on 05/19/16 08:40; Start 05/18/16 at 09:00; Stop 05/19/16 at 09:14; Status DC Carvedilol (Coreg) 3.125 mg ONCE ONCE PO Last administered on 05/17/16 16:10; Start 05/17/16 at 15:45; Stop 05/17/16 at 15:54; Status DC Carvedilol (Coreg) 3.125 mg Q12HR PO Last administered on 05/19/16 08:40; Start 05/17/16 at 21:00; Stop 05/19/16 at 09:14; Status DC Digoxin (Lanoxin Inj) 0.5 mg ONCE ONCE IV PUSH Last administered on 05/17/16 16:09; Start 05/17/16 at 15:45; Stop 05/17/16 at 15:56; Status DC Spironolactone (Aldactone) 25 mg ONCE ONCE PO Last administered on 05/17/16 16 :10; Start 05/17/16 at 15:45; Stop 05/17/16 at 15:51; Status DC Spironolactone (Aldactone) 25 mg BID@09,18 PO Last administered on 05/18/16 08: 55; Start 05/17/16 at 18:00; Stop 05/18/16 at 11:07; Status DC Enoxaparin Sodium (Lovenox Inj) 150 mg Q12H SQ Last administered on 05/24/16 04:09; Start 05/17/16 at 18:00 Spironolactone (Aldactone) 50 mg BID@09,18 PO Last administered on 05/23/16 18 :00; Start 05/18/16 at 18:00 Furosemide (Lasix Inj) 20 mg BID@18 IV PUSH Last administered on 05/20/16 09:29; Start 05/18/16 at 18:00; Stop 05/20/16 at 16:08; Status DC Ramipril (Altace) 5 mg DAILY PO Last administered on 05/23/16 08:57; Start 12/26 at 09:00 Carvedilol 6.25 mg 6.25 mg Q12HR PO Last administered on 05/23/16 20:44; Start 05/19/16 at 21:00 Heparin Sodium/ Sodium Chloride (Heparin-NS/Pf Inj) 500 ml @ As Directed STK- MED ONCE .ROUTE Last administered on 05/20/16 15:22; Start 05/20/16 at 15:22; Stop 05/20/16 at 15:23; Status DC Furosemide (Lasix Inj) 40 mg STK-MED ONCE .ROUTE Last administered on 15:53; Start 05/20/16 at 15:53; Stop 05/20/16 at 15:54; Status DC Sodium Chloride (NS Flush) 2 ml BID .XX Last administered on 05/23/16 20:45; Start 05/20/16 at 21:00 Sodium Chloride (NS Flush) 2 ml UNSCH PRN .XX FLUSH AFTER USING IV ACCESS; Start 05/20/16 at 16:15 Miscellaneous Information 1 ONCE ONCE XX ; Start 05/20/16 at 16:15; Stop at 16:16; Status DC Furosemide (Lasix Inj) 40 mg BID@,18 IV PUSH Last administered on 05/22/16 18:13; Start 05/20/16 at 18:00; Stop 05/23/16 at 08:10; Status DC Magnesium Oxide (Mag-Ox) 400 mg ONCE ONCE PO Last administered on 05/20/16 16 :15; Start 05/20/16 at 16:15; Stop 05/20/16 at 16:16; Status DC Magnesium Oxide (Mag-Ox) 400 mg Q12HR PO Last administered on 05/23/16 20:44; Start 05/20/16 at 21:00 Iohexol (OMNIPAQUE 350 INJ (Corporate Administrative Assistant)) 100 ml STK-MED ONCE OTHER ; Start at 16:00; Stop 05/21/16 at 08:29; Status DC Atorvastatin Calcium (Lipitor) 20 mg HS PO Last administered on 05/23/16 20:44 ; Start 05/22/16 at 21:00 Furosemide (Lasix Inj) 20 mg BID@09,18 IV PUSH Last administered on 05/23/16 08:57; Start 05/23/16 at 09:00; Stop 05/23/16 at 09:24; Status DC Furosemide (Lasix Inj) 20 mg DAILY IV PUSH ; Start 05/24/16 at 09:00 A/P Assessment and Plan A/P nonischemic cardiomyopathy - Echo shows a 20-25% EF -s/p cardiac cath with mild two vessel disease and EF 20% - continue lasix ; -continue aldactone - PATRICE Inhibitor continued - Beta Desean continued -cardiology following and recommended transfer to [facility] for heart transplant. A-fib RVR Respiratory Distress - RVR has improved - Continue Beta Desean - Follow on Telemetry - Cardiology following - Continue PRN Oxygen -continue lovenox- coumadin on hold acute kidney injury- likely due to diuretics- decreased the dose of lasix continue to monitor Tabacco Abuse - counseled to quit DVT prophylaxis with subq Lovenox Discharge Planning transfer to [facility] for heart transplant when bed is available. see med list. f/u; pcp and cardiology. d/w the patient and previously d/w the case management. time spent 35 min. Naima Garcia MD May 24, 2016 08:35
--- NOTE | 2016-05-24 08:35 | HHI.DCPOC ---
Discharge Care Plan Diagnosis: (1) Cardiomyopathy Your Health Problems Are: Shortness of Breath Goals to Promote Your Health * To prevent worsening of your condition and complications * To maintain your health at the optimal level Directions to Meet Your Goals Take your medications as prescribed Follow your dietary instruction Follow activity as directed Keep your appointments as scheduled Take your immunizations and boosters as scheduled If your symptoms worsen call your PCP, if no PCP go to Urgent Care Center or Emergency Room Smoking is Dangerous to Your Health. Avoid second hand smoke Call the 24-hour hour crisis hotline for domestic abuse at Naima Garcia MD May 24, 2016 08:35
--- NOTE | 2016-05-24 08:36 | HHI.DS ---
Discharge Summary Admission Date May 17, 2016 at 02:03 Discharge Date: May 24, 2016 Admitting Diagnosis atrial fibrillation with rvr, chf (1) Atrial fibrillation with RVR ICD Code: I48.91 Diagnosis: Principal (2) Chest pain ICD Code: R07.9 Diagnosis: Principal (3) CHF (congestive heart failure) ICD Code: I50.9 Diagnosis: Principal (4) Tobacco abuse ICD Code: Z72.0 Diagnosis: Secondary (5) Non-compliance ICD Code: Z91.19 Diagnosis: Principal Procedures cardiac cath Brief History - From Admission This is a 40-year-old male with a PMH of A. fib on Coumadin, CHF (Echo 04/13/14 w / EF 45-50%), HTN, Tobacco Abuse and Noncompliance who presented to the ER with SOB, chest pain and abdominal pain x8 months. States symptoms have been getting progressively worse. States he was referred to GI by his PCP but he "ran out of money" and hasn't followed up. Also off all his medications, including Coumadin and Lasix. On arrival, found to be in A. fib with RVR, BP 164/132, HR 120, O2 sat 94% on 3L NC. S/p Cardizem and started on Cardizem gtt in ER. CBC essentially unremarkable. Chemistry unremarkable except for BS 205. Troponin negative. BNP 411. INR 1.1. UA negative. CXR with cardiomegaly and CHF. CT Abd/Pelvis w/ mild fatty infiltration of liver, mild ascites, superficial edema seen throughout. S/p Lasix 40mg IV in ER w/ good diuresis. CBC/BMP: 05/23/16 0517 05/23/16 0511 Significant Findings Laboratory Tests Test 05/22/16 05/23/16 05/23/16 05:18 05:11 05:17 Mean Corpuscular Hemoglobin 25.1 PG 25.7 PG (27.0-34.0) (27.0-34.0) Mean Corpuscular Hemoglobin 31.0 % Concent (32.0-36.0) Red Cell Distribution Width 19.3 % 19.5 % (11.6-17.2) (11.6-17.2) Chloride Level 97 MEQ/L 97 MEQ/L (98-107) (98-107) Carbon Dioxide Level 37.2 MEQ/L 35.6 MEQ/L (21.0-32.0) (21.0-32.0) Anion Gap 4 MEQ/L (5-15) 3 MEQ/L (5-15) Blood Urea Nitrogen 24 MG/DL (7-18) 23 MG/DL (7-18) Estimat Glomerular Filtration 61 ML/MIN (>89) 53 ML/MIN (>89) Rate Random Glucose 120 MG/DL 130 MG/DL (74-106) (74-106) B-Type Natriuretic Peptide 331 PG/ML 269 PG/ML (0-100) (0-100) LDL Cholesterol 106 MG/DL (0-99) HDL Cholesterol 28.9 MG/DL (40.0-60.0) Creatinine 1.45 MG/DL (0.60-1.30) Mean Corpuscular Volume 79.9 FL (80.0-100.0) Imaging Last Impressions Abdomen/Pelvis CT 05/16/16 2206 Signed Impressions: Service Date/Time: Monday, May 16, 2016 23:18 - CONCLUSION: 1. Suspected mild fatty infiltration of the liver. 2. Mild ascites seen in the left paracolic gutter region and around the spleen. 3. Minimal hazy density at the root of the mesentery. This is nonspecific. 4. Superficial edema seen throughout. Jerome Pina MD Chest X-Ray 05/16/16 0000 Signed Impressions: Service Date/Time: Monday, May 16, 2016 23:51 - CONCLUSION: Cardiomegaly with diffuse increased density likely related to CHF. Jerome Pina MD PE at Discharge GENERAL: obese, in no apparent distress. CARDIOVASCULAR: Regular rate and regular rhythm without murmurs, gallops, or rubs. RESPIRATORY: Clear to auscultation. Breath sounds equal bilaterally. No wheezes , rales, or rhonchi. GASTROINTESTINAL: Abdomen soft, non-tender, nondistended. Normal, active bowel sounds MUSCULOSKELETAL: Extremities without clubbing, cyanosis, or edema. NEURO: Alert & Oriented x4 to person, place, time, situation. Moves all ext x4 Hospital Course nonischemic cardiomyopathy - Echo shows a 20-25% EF -s/p cardiac cath with mild two vessel disease and EF 20% - continue lasix ; -continue aldactone - PATRICE Inhibitor continued - Beta Desean continued -cardiology following and recommended transfer to [facility] for heart transplant. A-fib RVR Respiratory Distress - RVR has improved - Continue Beta Desean - Follow on Telemetry - Cardiology following - Continue PRN Oxygen -continue lovenox- coumadin on hold acute kidney injury- likely due to diuretics- decreased the dose of lasix continue to monitor Tabacco Abuse - counseled to quit DVT prophylaxis with subq Lovenox Pt Condition on Discharge: Fair Discharge Disposition: Disch to Another Hospital Discharge Time: > 30 minutes Discharge Instructions DIET: Follow Instructions for: Heart Healthy Diet Activities you can perform: Regular-No Restrictions Follow up Referrals: Cardiology PCP Follow-up New Medications: Furosemide (Lasix) 40 Mg Tab 40 MG PO DAILY chf #30 Ref 0 TAB Atorvastatin (Atorvastatin) 20 Mg Tab 20 MG PO HS dyslipidemia Days 30 Ref 0 TAB Carvedilol (Coreg) 6.25 Mg Tab 6.25 MG PO Q12HR chf Days 30 Ref 0 TAB Enoxaparin Inj (Lovenox Inj) 150 Mg/Ml Syr 150 MG SQ Q12H a-fib Days 30 Ref 0 INJECTION Ramipril (Ramipril) 5 Mg Cap 5 MG PO DAILY chf Days 30 Ref 0 CAP Spironolactone (Aldactone) 50 Mg Tab 50 MG PO BID@09,18 chf Days 30 Ref 0 TAB Continued Medications: Varenicline (Chantix) 0.5 Mg Tab 0.5 MG PO DAILY Days 1-3 Smoking cessation #3 Ref 0 TAB Discontinued Medications: Diltiazem (Cardizem) 60 Mg Tab 60 MG PO QID Angina #120 Ref 0 TAB Furosemide (Lasix) 20 Mg Tab 20 MG PO DAILY #5 Ref 0 TAB Warfarin (Coumadin) 4 Mg Tab 4 MG PO DAILY Prevent Blood Clot #30 Ref 0 TAB Naima Garcia MD May 24, 2016 08:36
[2016-05-24] MEDS ORDERED: ENOX150P SQ (08:38)
[2016-05-24] MEDS ORDERED: ATOR20TA15 PO (08:38)
[2016-05-24] MEDS ORDERED: FUROSEMIDE 20 MG/2 ML VIAL IV PUSH SCH (09:00)
[2016-05-24] MEDS: SODIUM CHLORIDE 0.9% FLUSH 10 ML FLUSH IV FLUSH SCH (09:00)
[2016-05-24] MEDS: MAGNESIUM OXIDE 400 MG TAB PO SCH (09:44)
[2016-05-24] MEDS: RAMIPRIL 5 MG CAP PO SCH (09:44)
[2016-05-24] MEDS: CARVEDILOL 6.25 MG TAB PO SCH (09:44)
[2016-05-24] MEDS: SPIRONOLACTONE 50 MG TAB PO SCH (09:44)
[2016-05-24] MEDS: SODIUM CHLORIDE 0.9% FLUSH 10 ML FLUSH SCH (09:45)
== END 2016-05-24 13:39 | disposition short-term general hospital (02) | DRG 286 ==
LOC: NEPC 21:07 → NEDA 05-17 02:03 → HCVR 05-17 05:15 → HCIS 05-19 16:00
PROVIDERS: ADMIT Internal Medicine; ATTEND Internal Medicine
PROC: B2151ZZ Fluoroscopy of Left Heart using Low Osmolar Contrast (ICD-10-PCS; 2016-05-20)
PROC: B2111ZZ Fluoroscopy of Multiple Coronary Arteries using Low Osmolar Contrast (ICD-10-PCS; 2016-05-20)
PROC: 4A023N8 Measurement of Cardiac Sampling and Pressure, Bilateral, Percutaneous Approach (ICD-10-PCS; principal; 2016-05-20 14:45)
DX: I13.0 Hypertensive heart and chronic kidney disease with heart failure and stage 1 through stage 4 chronic kidney disease, or unspecified chronic kidney disease (principal); I50.23 Acute on chronic systolic (congestive) heart failure; N17.9 Acute kidney failure, unspecified; I42.9 Cardiomyopathy, unspecified; R18.8 Other ascites; K76.0 Fatty (change of) liver, not elsewhere classified; Z68.42 Body mass index [BMI] 45.0-49.9, adult; E66.01 Morbid (severe) obesity due to excess calories; I48.91 Unspecified atrial fibrillation; K21.9 Gastro-esophageal reflux disease without esophagitis; R09.02 Hypoxemia; I25.10 Atherosclerotic heart disease of native coronary artery without angina pectoris; T50.2X5A Adverse effect of carbonic-anhydrase inhibitors, benzothiadiazides and other diuretics, initial encounter; N18.9 Chronic kidney disease, unspecified; F17.210 Nicotine dependence, cigarettes, uncomplicated; Z71.3 Dietary counseling and surveillance; Z79.01 Long term (current) use of anticoagulants; Z91.14 Patient's other noncompliance with medication regimen; Z91.19 Patient's noncompliance with other medical treatment and regimen
CPT/HCPCS: 36600; 71010; 74177; 80048; 80053; 80061; 80076; 81001; 82550; 82805; 82810; 83690; 83735; 83880; 84484; 85025; 85027; 85610; 85730; 93005; 93306; 93460; 94002; 96374; 96375; C1769; C1893; J1160; J1644; J1650; J1940; J2060; Q9967

== ENCOUNTER 2016-08-23 10:31 | Emergency (ER) | payer OTHER ==
[~2016-08-23 10:31] MED LIST changes: +ALDA50TA2 PO; +ATOR20TA15 PO; +CARV6.25 PO; -COUM4TAB PO; -DILT60TA33 PO; +ENOX150P SQ; +FURO1TAB60 PO; -FURO1TAB62 PO; -PANT20 PO; +RAMI5CAP PO; +VARE.5 PO
[2016-08-23 10:33] VITALS: BP 119/90; PULSE 110; RESP 24; TEMP 97.8; O2SAT 96
== END 2016-08-23 11:39 | disposition left against medical advice (07) ==
LOC: NED 10:31
DX: N39.9 Disorder of urinary system, unspecified (principal)
CPT/HCPCS: 99281

== ENCOUNTER 2017-03-15 14:02 | Emergency (ER) | payer BC, OTHER ==
[~2017-03-15] VITALS: Ht 182.9 cm; Wt 155.0 kg
[2017-03-15 14:04] VITALS: BP 129/90; PULSE 85; RESP 16; O2SAT 95
[2017-03-15 14:57] LABS: AUTOMATED NEUTROPHIL # 7.2 TH/MM3 (1.8-7.7); BASOPHIL # 0.1 TH/MM3 (0-0.2); BASOPHIL % 0.7 % (0.0-2.0); EOSINOPHIL # 0.2 TH/MM3 (0-0.4); EOSINOPHIL % 1.6 % (0.0-4.0); HEMATOCRIT 50.6 % (39.0-51.0); HEMOGLOBIN 17.3 GM/DL (13.0-17.0); LYMPH % 17.8 % (9.0-44.0); LYMPHOCYTE # 1.8 TH/MM3 (1.0-4.8); MEAN CELL VOLUME 88.5 FL (80.0-100.0); MEAN CORPUSCULAR HEMOGLOBIN 30.3 PG (27.0-34.0); MEAN CORPUSCULAR HGB CONC 34.2 % (32.0-36.0); MEAN PLATELET VOLUME 9.1 FL (7.0-11.0); MONO % 7.9 % (0.0-8.0); MONOCYTE # 0.8 TH/MM3 (0-0.9); PLATELET COUNT 251 TH/MM3 (150-450); RED BLOOD COUNT 5.72 MIL/MM3 (4.50-5.90); RED CELL DISTRIBUTION WIDTH 15.4 % (11.6-17.2); WHITE BLOOD COUNT 10.1 TH/MM3 (4.0-11.0)
[2017-03-15 15:19] LABS: BICARBONATE 27.9 MEQ/L (21.0-32.0); BLOOD UREA NITROGEN 14 MG/DL (7-18); CALCIUM 8.9 MG/DL (8.5-10.1); CHLORIDE 101 MEQ/L (98-107); CREATININE 1.29 MG/DL (0.60-1.30); GLOMERULAR FILTRATION RATE 61 ML/MIN (>89); GLUCOSE,RANDOM 291 MG/DL (74-106); SODIUM (NA) 136 MEQ/L (136-145); TROPONIN I LESS THAN 0.02 NG/ML (0.02-0.05)
--- NOTE | 2017-03-15 15:23 | PD ---
HPI Chief Complaint: General Weakness Time Seen by Provider: 14:51 Travel History International Travel<30 days: No Contact w/Intl Traveler<30days: No Traveled to known affect area: No History of Present Illness HPI This is a 41-year-old man presents to the emergency department complaining of decreased energy and feeling weak and dizzy ongoing for about a week or so. No other real specific symptoms. Had some neck pain is been ongoing as well. No cough or cold symptoms. No URI. No fevers. No change in his bowel movements. No changes in medications. Otherwise had been feeling generally well. Came in today because of a worsening general weakness. No aggravating or alleviating factors. Symptoms were moderate in severity. History Past Medical History Narrative Medical A. fib, on warfarin CHF Hypertension Tobacco abuse History of noncompliance Social History Alcohol Use: No Tobacco Use: Yes (1 PPD) Allergies-Medications (Allergen,Severity, Reaction): Coded Allergies: No Known Allergies (Unverified , 05/16/16) Reported Meds & Prescriptions Reported Meds & Active Scripts Active Lovenox Inj (Enoxaparin Sodium) 150 Mg/Ml Syr 150 Mg SQ Q12H 30 Days Atorvastatin (Atorvastatin Calcium) 20 Mg Tab 20 Mg PO HS 30 Days Lasix (Furosemide) 40 Mg Tab 40 Mg PO DAILY Aldactone (Spironolactone) 50 Mg Tab 50 Mg PO BID@,18 30 Days Ramipril 5 Mg Cap 5 Mg PO DAILY 30 Days Coreg (Carvedilol) 6.25 Mg Tab 6.25 Mg PO Q12HR 30 Days Reported Chantix (Varenicline) 0.5 Mg Tab 0.5 Mg PO DAILY Days 1-3 Review of Systems Except as stated in HPI: all other systems reviewed are Neg Physical Exam Narrative GENERAL: 41-year-old man, nontoxic, no acute distress. SKIN: Focused skin assessment warm/dry. HEAD: Atraumatic. Normocephalic. EYES: Pupils equal and round. No scleral icterus. No injection or drainage. ENT: No nasal bleeding or discharge. Mucous membranes pink and moist. NECK: Trachea midline. No JVD. CARDIOVASCULAR: Heart rates are regular. No murmurs. RESPIRATORY: No accessory muscle use. Clear to auscultation. Breath sounds equal bilaterally. GASTROINTESTINAL: Abdomen soft, non-tender, nondistended. Hepatic and splenic margins not palpable. MUSCULOSKELETAL: No obvious deformities. Moderate edema in the lower extremities. NEUROLOGICAL: Awake and alert. No obvious cranial nerve deficits. Motor grossly within normal limits. Normal speech. PSYCHIATRIC: Appropriate mood and affect; insight and judgment normal. Data Data Last Documented VS Vital Signs Date Time Temp Pulse Resp B/P (MAP) Pulse Ox O2 Delivery O2 Flow Rate FiO2 03/15/17 14:04 85 16 129/90 (103) 95 Orders Orders Electrocardiogram (03/15/17 14:18) Complete Blood Count With Diff (03/15/17 14:18) Basic Metabolic Panel (Bmp) (03/15/17 14:18) Ckmb (Isoenzyme) Profile (03/15/17 14:18) Troponin I (03/15/17 14:18) Chest, Single Ap (03/15/17 ) Labs Laboratory Tests Test 03/15/17 14:32 White Blood Count 10.1 TH/MM3 Red Blood Count 5.72 MIL/MM3 Hemoglobin 17.3 GM/DL Hematocrit 50.6 % Mean Corpuscular Volume 88.5 FL Mean Corpuscular Hemoglobin 30.3 PG Mean Corpuscular Hemoglobin Concent 34.2 % Red Cell Distribution Width 15.4 % Platelet Count 251 TH/MM3 Mean Platelet Volume 9.1 FL Neutrophils (%) (Auto) 72.0 % Lymphocytes (%) (Auto) 17.8 % Monocytes (%) (Auto) 7.9 % Eosinophils (%) (Auto) 1.6 % Basophils (%) (Auto) 0.7 % Neutrophils # (Auto) 7.2 TH/MM3 Lymphocytes # (Auto) 1.8 TH/MM3 Monocytes # (Auto) 0.8 TH/MM3 Eosinophils # (Auto) 0.2 TH/MM3 Basophils # (Auto) 0.1 TH/MM3 CBC Comment DIFF FINAL Differential Comment Blood Urea Nitrogen 14 MG/DL Creatinine 1.29 MG/DL Random Glucose 291 MG/DL Calcium Level 8.9 MG/DL Sodium Level 136 MEQ/L Potassium Level 4.7 MEQ/L Chloride Level 101 MEQ/L Carbon Dioxide Level 27.9 MEQ/L Anion Gap 7 MEQ/L Estimat Glomerular Filtration Rate 61 ML/MIN Total Creatine Kinase 91 U/L Troponin I LESS THAN 0.02 NG/ML MDM Medical Decision Making Medical Screen Exam Complete: Yes Emergency Medical Condition: Yes Interpretation(s) LABS: CBC is unremarkable. CMP is unremarkable. Glucose 291 Troponin negative. No acute cardio pulmonary disease. Differential Diagnosis Weakness, anemia, electrolyte abnormalities, renal failure, GI bleed, adverse effect to medication, occult infection Narrative Course Medical decision making INITIAL co-owns a 41-year-old male presents to the emergency department complaining of generalized weakness. Multiple medical problems. Looks well. Will check kidney function, anemia, reassess. Possibly some kind of occult infection. No real URI symptoms. Reassess. CLINICAL labs are unremarkable. Blood sugars a bit elevated I think it is unlikely to be contributing. I think the patient may have some occult infection t that will reveal itself over the next couple days. It may be unrelated. I do not think this is cardiac or pulmonary. In any case patient can follow with his primary doctor, and agrees to return for any worsening symptoms. Diagnosis Primary Impression: Weakness Additional Instructions: Follow-up with her primary doctor in the next 2-4 days. Return to the emergency department for any new or worsening symptoms. Med/Other Pt SpecificInfo: No Change to Meds Disposition: 01 DISCHARGE HOME Condition: Stable Osiel Tejeda MD Mar 15, 2017 15:23
--- NOTE | 2017-03-15 15:33 | RADRPT ---
EXAM DATE/TIME: 03/15/2017 15:09 [facility] COMPARISON: CHEST SINGLE AP, May 16, 2016, 23:51. INDICATIONS : Short of breath, weakness. MEDICAL HISTORY : Congestive heart failure. A fib. SURGICAL HISTORY : None. ENCOUNTER: Initial ACUITY: 1 day PAIN SCORE: 5/10 LOCATION: Bilateral chest FINDINGS: The lungs are clear without infiltrate, nodule, or mass. There is no appreciable pleural effusion fo r technique. Heart and mediastinum are unremarkable. CONCLUSION: No acute cardiopulmonary disease. Freddy Bess MD on March 15, 2017 at 15:31 Board Certified Radiologist. This report was verified electronically.
--- NOTE | 2017-03-16 23:03 | EKG ---
Date Performed: 03/15/2017 Time Performed: 14:28:42 PTAGE: 41 years EKG: ATRIAL FIBRILLATION WITH RAPID VENTRICULAR RESPONSE NONSPECIFIC ST & T-WAVE ABNORMALITY ABN ORMAL RHYTHM ECG PREVIOUS TRACING : 05/17/2016 15.23 DOCTOR: Marvin Carr Interpretating Date/Time 03/16/2017 23:02:19
== END 2017-03-15 17:56 | disposition home or self-care (01) ==
LOC: NEPE 14:02
DX: R53.1 Weakness (principal); M54.2 Cervicalgia; R42 Dizziness and giddiness; I11.0 Hypertensive heart disease with heart failure; I50.9 Heart failure, unspecified; I48.91 Unspecified atrial fibrillation; R94.31 Abnormal electrocardiogram [ECG] [EKG]; F17.200 Nicotine dependence, unspecified, uncomplicated; Z79.899 Other long term (current) drug therapy
CPT/HCPCS: 71045; 80048; 82550; 84484; 85025; 93005; 99285

== ENCOUNTER 2018-01-27 11:15 | Inpatient (IN) ==
[2018-01-27 11:19] VITALS: RESP 18
[2018-01-27] MEDS ORDERED: Metoprolol Tartrate 100 MG Tablet PO ONE (11:35)
--- NOTE | 2018-01-27 12:03 | ED ---
HPI General Chief Complaint: Recheck/Abnormal Lab/Rx Stated Complaint: abnl labs Time Seen by Provider: 01/27/18 11:24 Source: patient and family Mode of arrival: ambulatory Limitations: no limitations History of Present Illness HPI narrative: 42-year-old male with a history of A. fib that presents to the ED for evaluation of elevated Coumadin level. Per patient he has had this elevated Coumadin level since he did blood work yesterday. Per patient he has a history of A. fib and the put him on Coumadin recently. Per patient he had a hard time keeping his Coumadin level elevated and initially they put him on a low dose but had to increase his dose as he continues to be undetectable. Per patient he currently takes 10 mg of Coumadin every day. He states that he had blood work yesterday that showed that his Coumadin level was 12 and he got the results of it today and was told to come to the ED. He was supposed to follow with his manager bar today. He denies any chest pain or shortness of breath but does state that today he had an episode where the left side of his body became numb and tingling. Per patient mostly to the extremities but also to the chest and belly. He states that he has had 3 episodes like this before but states that he is never really mentioned to anybody before. He currently states that he has no symptoms. He denies any other symptoms. No urinary or bowel movement issues. She does have a history of heart failure as well. He has diabetes and high blood pressure high cholesterol as well. Currently denies any other symptoms. No pain. No bleeding of any kind. Related Data Home Medications Medication Instructions Recorded Confirmed aspirin [Aspir-81] 81 mg PO DAILY 01/27/18 01/27/18 atorvastatin 40 mg PO HS 01/27/18 01/27/18 furosemide 20 mg PO DAILY 01/27/18 01/27/18 gabapentin 300 mg PO BID 01/27/18 01/27/18 insulin aspart U-100 [Novolog 01/27/18 Flexpen U-100 Insulin] lisinopril 2.5 mg PO DAILY 01/27/18 01/27/18 metoprolol tartrate 100 mg PO BID 01/27/18 01/27/18 omeprazole magnesium [Prilosec OTC] 20 mg PO DAILY 01/27/18 01/27/18 spironolactone 25 mg PO DAILY 01/27/18 01/27/18 warfarin 5 mg PO DAILY 01/27/18 01/27/18 warfarin 7.5 mg PO DAILY 01/27/18 01/27/18 Allergies Allergy/AdvReac Type Severity Reaction Status Date / Time No Known Allergies Allergy Verified 01/27/18 11:49 Review of Systems ROS: all other systems reviewed are negative [facility] Medical History Medical History CHF (congestive heart failure) (Acute) Diabetes (Acute) Hyperlipidemia (Acute) Hypertension (Acute) Sleep apnea (Acute) Surgical History Surgical History History of appendectomy (Acute) Social History Social History Substance History: No History of Abuse Smoking Status: Former smoker How Often Do You Have a Drink Containing Alcohol: Never Recent Travel in [facility] within the Last 8 Weeks: No Recent Out of Country Travel within the Last 8 Weeks: No Immunization History Tetanus Immunization: Unsure Exam Narrative Exam Narrative: GENERAL: Well appearing SKIN: Focused skin assessment warm/dry. HEAD: Atraumatic. Normocephalic. EYES: Pupils equal and round. No scleral icterus. No injection or drainage. ENT: No nasal bleeding or discharge. Mucous membranes pink and moist. Tongue is midline. No Uvula deviation. NECK: Trachea midline. No JVD. CARDIOVASCULAR: Irregular irregular rate and rhythm. No murmur appreciated. RESPIRATORY: No accessory muscle use. Clear to auscultation. Breath sounds equal bilaterally. GASTROINTESTINAL: Abdomen soft, non-tender, nondistended. Hepatic and splenic margins not palpable. MUSCULOSKELETAL: No obvious deformities. No clubbing. No cyanosis. No edema. Full range of motion of the upper and lower extremities bilaterally. 2+ pulses bilaterally. NEUROLOGICAL: Awake and alert. No obvious cranial nerve deficits. Motor grossly within normal limits. Normal speech. PSYCHIATRIC: Appropriate mood and affect; insight and judgment normal. Course Initial Documented Vital Signs Temperature 97.7 F 01/27/18 11:17 Pulse Rate 136 H 01/27/18 11:17 Respiratory Rate 18 01/27/18 11:17 Blood Pressure 141/90 H 01/27/18 11:17 Pulse Oximetry 96 01/27/18 11:17 Last Documented Vital Signs Temperature 97.7 F 01/27/18 11:17 Pulse Rate 119 H 01/27/18 11:51 Respiratory Rate 18 01/27/18 11:31 Blood Pressure 138/74 01/27/18 11:31 Pulse Oximetry 94 L 01/27/18 11:49 Medical Decision Making SAMANTHA Attestation SAMANTHA supervised visit: Yes Attestation: I, Dr. Montana, have reviewed the advance practice practitioner's documentation and am in agreement, met with the patient face to face, made the diagnosis, and the medical decision making was done by me. *My assessment and Findings: Patient seen and evaluated with PA, please see PA note for further details. Sent here by his physician because of elevated INR. He is found to have fairly fast A. fib with RVR, and Cardizem was given in the ER. His INR in the ER is 15. He has no acute bleeding at this time. At this point, my plan would be to admit the patient for further treatment of his A. fib with RVR and also to treat his elevated INR. Vitamin K was given in the ER. MDM Narrative Medical decision making narrative: 42-year-old male who presents to the ED for evaluation of elevated Coumadin level. Patient was properly examined and was found to have signs and symptoms consistent with appears to be abnormal labs. On physical exam patient appears to be in A. fib with RVR. Per patient he did took any of his medications today as he was going to see his doctor today. He denies any bleeding symptoms. He did show me the blood work that he was given by his physician and did show an elevated Coumadin level of 12. At this time labs and imaging were ordered. We will recheck to see if this is a true value or not. Patient at this time will be given Cardizem as well as metoprolol 100 mg to bring down his heart rate. Patient will be monitored. Labs and imaging showed appears to be A. fib RVR and elevated Coumadin level of 15. At this time because patient still in A. fib RVR patient will be placed on the drip of Cardizem. At this time I think recommends admission. She recommends against fully reversing the Coumadin level at this time as patient is in A. fib. She recommends starting oral vitamin K. This was started by me. Case was discussed with Dr. Bustillos who agrees admission to her service. My attending agrees with plan and evaluate the patient herself. Medical Screen Exam Complete: Yes Emergency Medical Condition: Yes Differential Diagnosis Differential Diagnosis: A. fib with RVR versus coagulopathy versus medication side effect versus bleeding Medical Records Medical records reviewed: Yes I reviewed the patient's medical records. Lab Data Lab results reviewed: Yes I reviewed the patient's lab results. Result diagrams: 01/27/18 11:30 01/27/18 11:30 Lab Results 01/27/18 01/27/18 01/27/18 Range/Units 11:30 11:30 11:30 WBC 9.3 (4.0-11.0) th/mm3 RBC 5.43 (4.50-5.90) mil/mm3 Hgb 16.8 (13.0-17.0) gm/dL Hct 48.5 (39.0-51.0) % MCV 89.2 (80.0-100.0) fL MCH 31.0 (27.0-34.0) pg MCHC 34.7 (32.0-36.0) % RDW 15.0 (11.6-17.2) % Plt Count 211 (150-450) th/mm3 MPV 9.8 (7.0-11.0) fL Neut % (Auto) 70.7 H (16.0-70.0) % Lymph % (Auto) 17.8 (9.0-44.0) % [place] % (Auto) 9.2 H (0.0-8.0) % Eos % (Auto) 1.7 (0.0-4.0) % Baso % (Auto) 0.6 (0.0-2.0) % Neut # (Auto) 6.6 (1.8-7.7) th/mm3 Lymph # (Auto) 1.7 (1.0-4.8) th/mm3 [place] # (Auto) 0.9 (0.0-0.9) th/mm3 Eos # (Auto) 0.2 (0.0-0.4) th/mm3 Baso # (Auto) 0.1 (0.0-0.2) th/mm3 WBC Differential . Differential Comment Auto diff final PT (9.8-11.6) sec INR Ratio APTT (23.4-31.7) sec Sodium 136 (136-145) meq/L Potassium 4.7 (3.5-5.1) meq/L Chloride 100 (98-107) meq/L Carbon Dioxide 28.7 (21.0-32.0) meq/L Anion Gap 7 (5-15) meq/L BUN 19 H (7-18) mg/dL Creatinine 1.33 H (0.60-1.30) mg/dL Estimated GFR 58 L (>89) mL/min Random Glucose 327 H (74-106) mg/dL Calcium 8.3 L (8.5-10.1) mg/dL Total Bilirubin 0.4 (0.2-1.0) mg/dL AST 23 (15-37) U/L ALT 20 (12-78) U/L Alkaline Phosphatase 109 (45-117) U/L Troponin I Less than 0.02 L (0.02-0.05) ng/mL B-Natriuretic Peptide 100 (0-100) pg/mL Total Protein 7.8 (6.4-8.2) g/dL Albumin 3.2 L (3.4-5.0) g/dL 01/27/ Range/Units 11:30 WBC (4.0-11.0) th/mm3 RBC (4.50-5.90) mil/mm3 Hgb (13.0-17.0) gm/dL Hct (39.0-51.0) % MCV (80.0-100.0) fL MCH (27.0-34.0) pg MCHC (32.0-36.0) % RDW (11.6-17.2) % Plt Count (150-450) th/mm3 MPV (7.0-11.0) fL Neut % (Auto) (16.0-70.0) % Lymph % (Auto) (9.0-44.0) % [place] % (Auto) (0.0-8.0) % Eos % (Auto) (0.0-4.0) % Baso % (Auto) (0.0-2.0) % Neut # (Auto) (1.8-7.7) th/mm3 Lymph # (Auto) (1.0-4.8) th/mm3 [place] # (Auto) (0.0-0.9) th/mm3 Eos # (Auto) (0.0-0.4) th/mm3 Baso # (Auto) (0.0-0.2) th/mm3 WBC Differential Differential Comment PT 148.6 H (9.8-11.6) sec INR 15.0 H* Ratio APTT 80.5 H (23.4-31.7) sec Sodium (136-145) meq/L Potassium (3.5-5.1) meq/L Chloride (98-107) meq/L Carbon Dioxide (21.0-32.0) meq/L Anion Gap (5-15) meq/L BUN (7-18) mg/dL Creatinine (0.60-1.30) mg/dL Estimated GFR (>89) mL/min Random Glucose (74-106) mg/dL Calcium (8.5-10.1) mg/dL Total Bilirubin (0.2-1.0) mg/dL AST (15-37) U/L ALT (12-78) U/L Alkaline Phosphatase (45-117) U/L Troponin I (0.02-0.05) ng/mL B-Natriuretic Peptide (0-100) pg/mL Total Protein (6.4-8.2) g/dL Albumin (3.4-5.0) g/dL Imaging Data Attestation: I personally reviewed and interpreted this imaging study as follows : Radiologist's impression: Chest X-Ray 01/27/18 11:32 CONCLUSION: 1. Cardiomegaly. 2. No focal infiltrate or pulmonary vascular congestion. Head CT 01/27/18 11:35 CONCLUSION: 1. Negative CT Head non contrast. . ECG Data Attestation: I personally reviewed and interpreted this ECG as follows: Interpretation: EKG shows atrial fibrillation with RVR with a ventricular rate of 118 bpm. Read by me and attending. Discharge Plan Discharge Disposition Patient Disposition: ED Admit(ED Internal Use Only) Discharge Order Discharge Orders: ED Use Only Admit Order (Routine); Ordered 01/27/18 Ordered By: Zacarias Chandler Discharge Details Diagnosis: Atrial fibrillation with RVR, Coagulopathy Physicians Team ED Provider: Evelyn Montana ED Midlevel Provider: Zacarias Chandler Primary Care Provider: Maeve Howell Attending Provider: Richi Bustillos Status ED Status: Admitted Patient
[2018-01-27 12:08] LABS: Baso # (Auto) 0.1 th/mm3 (0.0-0.2); Baso % (Auto) 0.6 % (0.0-2.0); Eos # (Auto) 0.2 th/mm3 (0.0-0.4); Eos % (Auto) 1.7 % (0.0-4.0); Hematocrit 48.5 % (39.0-51.0); Hemoglobin 16.8 gm/dL (13.0-17.0); Lymph # (Auto) 1.7 th/mm3 (1.0-4.8); Lymph % (Auto) 17.8 % (9.0-44.0); Mean Corpuscular HGB Conc 34.7 % (32.0-36.0); Mean Corpuscular Volume 89.2 fL (80.0-100.0); Mean Platelet Volume 9.8 fL (7.0-11.0); Mono # (Auto) 0.9 th/mm3 (0.0-0.9); Mono % (Auto) 9.2 % (0.0-8.0); Neut # (Auto) 6.6 th/mm3 (1.8-7.7); Neut % (Auto) 70.7 % (16.0-70.0); Platelet Count 211 th/mm3 (150-450); Red Blood Count 5.43 mil/mm3 (4.50-5.90); White Blood Count 9.3 th/mm3 (4.0-11.0)
--- NOTE | 2018-01-27 12:15 | XR ---
EXAM DATE: 01/27/2018 12:11 PM EST AGE/SEX: 42 years / Male INDICATIONS: Chest pain. Patient complains of left side of body numbness. CLINICAL DATA: This is the patient's initial encounter. Patient reports that signs and symptoms have been present for 1 day and indicates a pain score of 0/10. MEDICAL/SURGICAL HISTORY: . Congestive heart failure. A fib. Patient states he has had this a f ew times over the last 2 years. None. Smoker. Pt. states he is on BP meds. COMPARISON: [facility], CHEST SINGLE AP, 03/15/2017. . FINDINGS: The heart is enlarged. The pulmonary vascular pattern is normal. The lungs are clear. CONCLUSION: 1. Cardiomegaly. 2. No focal infiltrate or pulmonary vascular congestion. Electronically signed by: Braydon Ware MD Board Certified Radiologist 01/27/2018 12:14 PM EST
[2018-01-27 12:26] LABS: Activated Partial Thrombo Time 80.5 sec (23.4-31.7); Prothrombin Time 148.6 sec (9.8-11.6)
[2018-01-27 12:27] LABS: Alkaline Phosphatase 109 U/L (45-117); Total Protein 7.8 g/dL (6.4-8.2)
[2018-01-27 12:28] LABS: Alanine Aminotransferase 20 U/L (12-78); Albumin 3.2 g/dL (3.4-5.0); Anion Gap 7 meq/L (5-15); Aspartate Aminotransferase 23 U/L (15-37); Blood Urea Nitrogen 19 mg/dL (7-18); Calcium 8.3 mg/dL (8.5-10.1); Carbon Dioxide 28.7 meq/L (21.0-32.0); Chloride 100 meq/L (98-107); Glomerular Filtration Rate 58 mL/min (>89); Glucose,Random 327 mg/dL (74-106); Potassium 4.7 meq/L (3.5-5.1); Sodium 136 meq/L (136-145)
--- NOTE | 2018-01-27 12:34 | CT ---
EXAM DATE: 01/27/2018 12:26 PM EST AGE/SEX: 42 years / Male INDICATIONS: Left arm numbness. CLINICAL DATA: This is the patient's initial encounter. Patient reports that signs and symptoms have been present for 1 day and indicates a pain score of 0/10. MEDICAL/SURGICAL HISTORY: Diabetes. Congestive heart failure. Hypertension. None. RADIATION DOSE: 66.34 CTDI (mGy) COMPARISON: No prior exams available for comparison. TECHNIQUE: CT of the head without contrast. Using automated exposure control and adjustment of the mA and/or kV according to patient size, radiation dose was kept as low as reasonably achievable to ob tain optimal diagnostic quality images. DICOM format image data is available electronically for revi ew and comparison. FINDINGS: Cerebrum: The ventricles are normal for age. No evidence of midline shift, mass lesion, hemorrhage or acute infarction. No extraaxial fluid collections are seen. Posterior Fossa: The cerebellum and brainstem are intact. The 4th ventricle is midline. The cerebe llopontine angle is unremarkable. Extracranial: The visualized portion of the orbits is intact. Skull: The calvaria is intact. No evidence of skull fracture. CONCLUSION: 1. Negative CT Head non contrast. . Electronically signed by: Braydon Ware MD Board Certified Radiologist 01/27/2018 12:33 PM EST
[2018-01-27] MEDS ORDERED: dilTIAZem Inj 125 MG in Sodium Chlor 0.9% Inj 100 ML IV.CONT PRN (12:37)
[2018-01-27] MEDS ORDERED: Phytonadione 5 MG/SWFI 5 ML Oral Syringe PO ONE (12:37)
--- NOTE | 2018-01-27 13:06 | P.HPIM ---
History of Present Illness Primary Care Physician: Maeve Howell Chief Complaint: elevated INR History of Present Illness: This is a 40-year-old male with a PMH of A. fib on Coumadin with INR of 15, CHF (Echo 04/13/14 w/ EF 45-50%), HTN, Tobacco Abuse and Noncompliance who presented to the ER with due to elevated INR. Per patient he currently takes 10 mg of Coumadin every day. He states that he had blood work yesterday that showed that his Coumadin level was 12 and he got the results of it today and was told to come to the ED. Patient did not take his regular medications this AM. Patient feels that his metoprolol causes him stomach cramping and reports that is why he did not take his metoprolol this AM. Patient was in A Fib RVR upon arrival to the ER. Patient was given Metoprolol 100 mg PO BID and Cardizem IV in the ER. HR 90-110 bpm. Patient offers no other complaints at this time denies, N/V/D/C, fevers, chills, chest pain or SOB. Past Medical History PMH: A. fib on Coumadin, CHF (Echo 04/13/14 w/ EF 45-50%), HTN, Tobacco Abuse and Noncompliance Past Surgical History Appendectomy, Right Leg Surgery Family History Reviewed and noncontributory Social History Denies ETOH use. Smokes 1ppd. Denies drug use Medications and Allergies Allergies Allergy/AdvReac Type Severity Reaction Status Date / Time No Known Allergies Allergy Verified 01/27/18 11:49 Home Medications Medication Instructions Recorded Confirmed Type aspirin [Aspir-81] 81 mg PO DAILY 01/27/18 01/27/18 History atorvastatin 40 mg PO HS 01/27/18 01/27/18 History furosemide 20 mg PO DAILY 01/27/18 01/27/18 History gabapentin 300 mg PO BID 01/27/18 01/27/18 History lisinopril 2.5 mg PO DAILY 01/27/18 01/27/18 History omeprazole magnesium [Prilosec OTC] 20 mg PO DAILY 01/27/18 01/27/18 History spironolactone 25 mg PO DAILY 01/27/18 01/27/18 History Active Medications: Active Medications Diltiazem HCl 125 mg/ Sodium (Chloride) 125 mls @ 5 mls/hr IV.CONT TITRATE PRN ; Protocol PRN Reason: Per Protocol Physical Exam Vital signs: Last Vital Signs Temp 97.7 F 01/27/18 11:17 Pulse 119 H 01/27/18 11:51 Resp 18 01/27/18 11:31 BP 138/74 01/27/18 11:31 Pulse Ox 94 L 01/27/18 11:49 Narrative: GENERAL: This is an obese, well-developed patient, in no apparent distress. CARDIOVASCULAR: irregularly irregular. RESPIRATORY: Clear to auscultation. Breath sounds equal bilaterally. GASTROINTESTINAL: Abdomen soft, non-tender, nondistended. Normal active bowel sounds MUSCULOSKELETAL: Extremities without clubbing, cyanosis, or edema. NEURO: Alert & Oriented x4 to person, place, time, situation. Moves all ext x4 Results Labs CBC & Chem 7: 01/28/18 05:00 01/28/18 05:00 Caprini VTE Risk Assessment Caprini VTE Risk Assessment: No/Low Risk (score <= 1) Caprini Risk Assessment Model: Point Value = 1 Point Value = 2 Point Value = 3 Point Value = 5 Age 41-60 Minor surgery BMI > 25 kg/m2 Swollen legs Varicose veins or History of unexplained or recurrent spontaneous Oral contraceptives or hormone replacement Sepsis (< 1 month) Serious lung disease, including pneumonia (< 1 month) Abnormal pulmonary function Acute myocardial infarction Congestive heart failure (< 1 month) History of inflammatory bowel disease Medical patient at bed rest Age 61-74 Arthroscopic surgery Major open surgery (> 45 min) Laparoscopic surgery (> 45 min) Malignancy Confined to bed (> 72 hours) Immobilizing plaster cast Central venous access Age >= 75 History of VTE Family history of VTE Factor V Leiden Prothrombin [id number] Lupus anticoagulant Anticardiolipin antibodies Elevated serum homocysteine Heparin-induced thrombocytopenia Other congenital or acquired thrombophilia Stroke (< 1 month) Elective arthroplasty Hip, pelvis, or leg fracture Acute spinal cord injury (< 1 month) Prophylaxis Regimen: Total Risk Factor Score Risk Level Prophylaxis Regimen 0-1 Low Early ambulation 2 Moderate Order ONE of the following: *Sequential Compression Device (SCD) *Heparin 5000 units SQ BID 3-4 Higher Order ONE of the following medications: *Heparin 5000 units SQ TID *Enoxaparin/Lovenox 40 mg SQ daily (WT < 150 kg, CrCl > 30 mL/min) *Enoxaparin/Lovenox 30 mg SQ daily (WT < 150 kg, CrCl > 10-29 mL/min) *Enoxaparin/Lovenox 30 mg SQ BID (WT < 150 kg, CrCl > 30 mL/min) AND/OR *Sequential Compression Device (SCD) 5 or more Highest Order ONE of the following medications: *Heparin 5000 units SQ TID (Preferred with Epidurals) *Enoxaparin/Lovenox 40 mg SQ daily (WT < 150 kg, CrCl > 30 mL/min) *Enoxaparin/Lovenox 30 mg SQ daily (WT < 150 kg, CrCl > 10-29 mL/min) *Enoxaparin/Lovenox 30 mg SQ BID (WT < 150 kg, CrCl > 30 mL/min) AND *Sequential Compression Device (SCD) Assessment and Plan Plan This is a 40-year-old male with a PMH of A. fib on Coumadin with INR of 15, CHF (Echo 04/13/14 w/ EF 45-50%), HTN, Tobacco Abuse and Noncompliance who presented to the ER with due to elevated INR. Per patient he currently takes 10 mg of Coumadin every day. Heidy has recently changed his diet, he is trying the Keto diet. He states that he had blood work yesterday that showed that his Coumadin level was 12 and he got the results of it today and was told to come to the ED. Patient did not take his regular medications this AM. Patient was in A Fib RVR upon arrival to the ER. Patient currently on Cardizem drip with HR in the 90's at this time. A. fib RVR Patient did not take his home medications this AM Resume patient's Metoprolol tartrate 100 mg PO BID Patient was given Cardizem IV in the ER Patient feels that his metoprolol causes him stomach cramping and reports that is why he did not take his metoprolol this AM Patient does not follow with a local boat worker - Consult cardiology Supra therapeutic INR INR 15 on admission Hold Coumadin Vitamin K 5 mg PO was given in ER No active signs for bleeding Recheck INR in AM Chest X-Ray 1. Cardiomegaly. 2. No focal infiltrate or pulmonary vascular congestion. Head CT 01/27/[address] Head non contrast. DM Patient takes Lantus 10 units daily at home and also uses SSI Will start diabetic diet Novolog SSI add Levemir 12 units BID CHF (Echo 04/13/14 w/ EF 45-50%) Continue patient's home Lisinopril 2.5 mg PO daily, Metoprolol 100 mg PO BID, lasix 20 mg PO daily and Spirolactone 25 mg PO daily patient follows with [facility]F clinic - requested that nursing obtain notes from [facility] clinic patient reports he is possible going to have a heart transplant HTN Continue patient's home Lisinopril 2.5 mg PO daily, Metoprolol 100 mg PO BID and Spirolactone 25 mg PO daily Hyperlipidemia continue patient's home Atorvastatin 40 mg daily Tobacco Abuse Patient counselled encouraged to abstain No DVT prophylaxis at this time INR elevated Attending Attestation The exam, history, and the medical decision-making described in the above note were completed with the assistance of the mid-level provider. I reviewed and agree with the findings presented. I attest that I had a [id number] encounter with the patient on the same day, and personally performed and documented my assessment and findings in the medical record. Patient examined. Assessment and plan formulated with Jannette Toth PA-C. I agree with the above.
[2018-01-27] MEDS ORDERED: Acetaminophen 325 MG Tablet PO PRN (13:19)
[2018-01-27] MEDS ORDERED: Dextrose 50% in Water 50 ML Vial IV.PUSH PRN (13:28)
--- NOTE | 2018-01-27 15:26 | ECG ---
Date Performed: 01/27/2018 Time Performed: 11:41:13 PTAGE: 42 years EKG: ATRIAL FIBRILLATION WITH RAPID VENTRICULAR RESPONSE SEPTAL MYOCARDIAL INFARCTION Since the previous tracing, no significant change noted ABNORMAL ECG PREVIOUS TRACING : 01/27/2018 11.33 DOCTOR: Sonia Hall Interpretating Date/Time 01/27/2018 15:24:58
[2018-01-27] MEDS ORDERED: Metoprolol Tartrate 100 MG Tablet PO SCH (21:00)
[2018-01-27] MEDS: Insulin NovoLOG Aspart Correctional Sugar Inj SQ SCH ×2 (21:21→21:49)
[2018-01-27] MEDS: Gabapentin 300 MG Capsule PO SCH (21:26)
[2018-01-27] MEDS: Senna/Docusate Sodium 8.6/50 MG Tablet PO SCH (21:29)
[2018-01-27] MEDS: Insulin Detemir Inj 1,000 UNIT/10 ML Vial SQ SCH (21:49)
[2018-01-28 05:32] VITALS: O2SAT 94
[2018-01-28 06:47] LABS: Baso # (Auto) 0.1 th/mm3 (0.0-0.2); Baso % (Auto) 0.7 % (0.0-2.0); Eos # (Auto) 0.1 th/mm3 (0.0-0.4); Eos % (Auto) 1.5 % (0.0-4.0); Hemoglobin 16.2 gm/dL (13.0-17.0); Lymph # (Auto) 2.2 th/mm3 (1.0-4.8); Lymph % (Auto) 24.8 % (9.0-44.0); Mean Corpuscular HGB Conc 33.8 % (32.0-36.0); Mean Corpuscular Hemoglobin 30.2 pg (27.0-34.0); Mean Corpuscular Volume 89.4 fL (80.0-100.0); Mean Platelet Volume 9.7 fL (7.0-11.0); Mono % (Auto) 10.7 % (0.0-8.0); Neut # (Auto) 5.6 th/mm3 (1.8-7.7); Neut % (Auto) 62.3 % (16.0-70.0); Platelet Count 199 th/mm3 (150-450); Prothrombin Time 39.8 sec (9.8-11.6); Red Blood Count 5.37 mil/mm3 (4.50-5.90); Red Cell Distribution Width 14.9 % (11.6-17.2)
[2018-01-28 07:05] LABS: Calcium 8.8 mg/dL (8.5-10.1); Carbon Dioxide 31.4 meq/L (21.0-32.0); Potassium 4.2 meq/L (3.5-5.1)
--- NOTE | 2018-01-28 08:52 | P.CONCA ---
History of Present Illness Primary Care Provider: Maeve Howell Chief Complaint: elevated INR History of Present Illness: 42-year-old male with reported nonischemic cardiomyopathy, systolic CHF, atrial fibrillation on warfarin, HLD, DM, morbid obesity who was sent to the hospital yesterday by PCP for elevated INR. The patient reports he has been following with heart failure clinic at [facility] and had plans to establish with a local test operator with for healthcare plans yesterday. His PCP manages his INR, reports his warfarin dose was recently creased from 10 mg daily to 15 mg daily. He was found to have a INR of 12 as outpatient and 15 in the ED yesterday. He was given vitamin K and his INR is 4.0 today. He reports his previous INR goal by his test operator was 5.0 (he denies any prior history of stroke, coronary stents, CABG). He states Eliquis was previously cost prohibitive, but now that he is switched to for health care plans he wants to see if he will be able to switch off of warfarin. He was also noted to be in A. fib with RVR in the ED, on metoprolol for rate control. He denies any chest pain, shortness of breath, palpitations, passing out. Telemetry monitoring overnight continues to show intermittent episodes of A. fib with RVR. Review of Systems All other systems reviewed negative except as stated in HPI PMFSH - History History Provided By: Patient - Medical History Medical History: Medical History (Last Updated 01/28/18 @ 08:37 by JENY Pineda) A-fib CHF (congestive heart failure) Diabetes Hyperlipidemia Hypertension Sleep apnea - Surgical History Surgical History: Surgical History (Last Reviewed 01/27/18 @ 12:00 by JENY Diego) History of appendectomy - Tobacco History Smoking Status: Former smoker - Alcohol History How Often Do You Have a Drink Containing Alcohol: Never - Substance Use History Substance History: No History of Abuse - Travel History Recent Travel in the [place] Within the Last 8 Weeks: No Recent Travel Out of the Country Within the Last 8 Weeks: No - Immunization History Tetanus Immunization: Unsure Medications and Allergies Active Medications: Active Medications Acetaminophen (Tylenol) 650 mg PO Q4H PRN PRN Reason: Temp > 100.4 Al Hydroxide/Mg Hydroxide (Milk Of Magnesia Liq) 30 ml PO Q12H PRN PRN Reason: Mild Constipation Aspirin (Ecotrin) 81 mg PO DAILY [facility] Last Admin: 01/27/18 21:24 Dose: Not Given Atorvastatin Calcium (Lipitor) 40 mg PO HS [facility] Last Admin: 01/27/18 21:26 Dose: 40 mg Dextrose (D50w Vial) 50 ml IV.PUSH UNSCH PRN PRN Reason: PER HYPOGLYCEMIA PROTOCOL Furosemide (Lasix) 20 mg PO DAILY [facility] Gabapentin (Neurontin) 300 mg PO BID [facility] Last Admin: 01/27/18 21:26 Dose: 300 mg Glucagon (Glucagon Inj) 1 mg OTHER UNSCH PRN PRN Reason: for Hypoglycemia Protocol Diltiazem HCl 125 mg/ Sodium (Chloride) 125 mls @ 5 mls/hr IV.CONT TITRATE PRN ; Protocol PRN Reason: Per Protocol Insulin Aspart (Novolog Insulin Correctional Sugar Inj) 0 unit SQ ACHS [facility]; Protocol Last Admin: 01/27/18 21:49 Dose: 4 unit Insulin Detemir (Levemir Inj) 12 unit SQ BID [facility] Last Admin: 01/27/18 21:49 Dose: 12 unit Lisinopril (Prinivil) 2.5 mg PO DAILY [facility] Metoprolol Tartrate (Lopressor) 100 mg PO BID [facility] Last Admin: 01/27/18 21:26 Dose: 100 mg Miscellaneous (Pill Splitter) 1 each OTHER UNSCH [facility] Ondansetron HCl (Zofran Inj) 4 mg IV.PUSH Q6H PRN PRN Reason: NAUSEA OR VOMITING Pantoprazole Sodium (Protonix) 20 mg PO DAILY [facility] Senna/Docusate Sodium (Melania-Colace) 1 tab PO BID [facility] Last Admin: 01/27/18 21:29 Dose: Not Given Sodium Chloride (Ns Flush) 2 ml IV.FLUSH BID [facility] Last Admin: 01/27/18 21:28 Dose: 2 ml Sodium Chloride (Ns Flush) 2 ml IV.FLUSH UNSCH PRN PRN Reason: FLUSH AFTER USING IV ACCESS Spironolactone (Aldactone) 25 mg PO DAILY [facility] Allergies Allergy/AdvReac Type Severity Reaction Status Date / Time No Known Allergies Allergy Verified 01/27/18 11:49 Home Medications Medication Instructions Recorded Confirmed Type aspirin [Aspir-81] 81 mg PO DAILY 01/27/18 01/27/18 History atorvastatin 40 mg PO HS 01/27/18 01/27/18 History furosemide 20 mg PO DAILY 01/27/18 01/27/18 History gabapentin 300 mg PO BID 01/27/18 01/27/18 History lisinopril 2.5 mg PO DAILY 01/27/18 01/27/18 History metoprolol tartrate 100 mg PO BID 01/27/18 01/27/18 History omeprazole magnesium [Prilosec OTC] 20 mg PO DAILY 01/27/18 01/27/18 History spironolactone 25 mg PO DAILY 01/27/18 01/27/18 History warfarin 5 mg PO DAILY 01/27/18 01/27/18 History warfarin 7.5 mg PO DAILY 01/27/18 01/27/18 History Exam Vital signs: Vital Signs 01/27/18 11:17 01/27/18 11:31 01/27/18 11:49 Temperature 97.7 F Pulse Rate 136 H 158 H Respiratory Rate 18 18 Blood Pressure 141/90 H 138/74 Pulse Oximetry 96 97 94 L 01/27/18 11:51 01/27/18 15:39 01/27/18 16:00 Temperature 98.2 F Pulse Rate 119 H 85 81 Respiratory Rate 18 18 Blood Pressure 134/99 H 119/78 Pulse Oximetry 95 98 01/27/18 16:30 01/27/18 19:00 01/27/18 20:00 Temperature 98.5 F Pulse Rate 83 92 H 92 H Respiratory Rate 18 Blood Pressure 128/87 Pulse Oximetry 97 01/27/18 21:00 01/27/18 22:00 01/27/18 23:00 Temperature Pulse Rate 94 H 94 H 88 Respiratory Rate Blood Pressure Pulse Oximetry 01/28/18 00:00 01/28/18 01:00 01/28/18 02:00 Temperature 98.3 F Pulse Rate 84 86 80 Respiratory Rate 18 Blood Pressure 163/84 H Pulse Oximetry 94 L 01/28/18 03:00 01/28/18 04:00 01/28/18 05:00 Temperature 97.8 F Pulse Rate 89 70 92 H Respiratory Rate 18 Blood Pressure 163/84 H Pulse Oximetry 94 L 01/28/18 06:00 01/28/18 06:02 Temperature Pulse Rate 82 Respiratory Rate Blood Pressure 97/63 L Pulse Oximetry Intake & Output 01/27/18 01/28/18 01/28/18 18:59 06:59 18:59 Intake Total 480 / 480 240 / 240 Output Total 100 / 100 300 / 300 Balance 380 / 380 -60 / -60 Weight 335 lb 334 lb 14.115 oz Intake: Oral 480 / 480 240 / 240 Output: Urine 100 / 100 300 / 300 Other: Date of Last Bowel Movement 01/27/18 Narrative: GENERAL: Well-developed well-nourished. Obese. In no acute distress. NECK: No carotid bruits. No JVD. CARDIOVASCULAR: Irregular rate and rhythm. No murmur appreciated. RESPIRATORY: No accessory muscle use. Clear to auscultation. Breath sounds equal bilaterally. MUSCULOSKELETAL: No clubbing or cyanosis. No edema. NEUROLOGICAL: Awake and alert. Normal speech. Results 01/28/18 05:00 01/28/18 05:00 Cardiac Enzymes 01/27/18 01/27/18 Range/Units 11:30 11:30 AST 23 (15-37) U/L Troponin I Less than 0.02 L (0.02-0.05) ng/mL B-Natriuretic Peptide 100 (0-100) pg/mL Coagulation 01/27/18 01/27/18 01/28/18 Range/Units 11:30 11:30 05:00 PT 148.6 H 39.8 H D (9.8-11.6) sec APTT 80.5 H (23.4-31.7) sec B-Natriuretic Peptide 100 (0-100) pg/mL CBC 01/27/18 01/28/18 Range/Units 11:30 05:00 WBC 9.3 9.0 (4.0-11.0) th/mm3 RBC 5.43 5.37 (4.50-5.90) mil/mm3 Hgb 16.8 16.2 (13.0-17.0) gm/dL Hct 48.5 48.0 (39.0-51.0) % Plt Count 211 199 (150-450) th/mm3 Neut # (Auto) 6.6 5.6 (1.8-7.7) th/mm3 Lymph # (Auto) 1.7 2.2 (1.0-4.8) th/mm3 [place] # (Auto) 0.9 1.0 H (0.0-0.9) th/mm3 Eos # (Auto) 0.2 0.1 (0.0-0.4) th/mm3 Baso # (Auto) 0.1 0.1 (0.0-0.2) th/mm3 Comprehensive Metabolic Panel 01/27/18 01/28/18 Range/Units 11:30 05:00 Sodium 136 138 (136-145) meq/L Potassium 4.7 4.2 (3.5-5.1) meq/L Chloride 100 101 (98-107) meq/L Carbon Dioxide 28.7 31.4 (21.0-32.0) meq/L BUN 19 H 21 H (7-18) mg/dL Creatinine 1.33 H 1.19 (0.60-1.30) mg/dL Calcium 8.3 L 8.8 (8.5-10.1) mg/dL AST 23 (15-37) U/L ALT 20 (12-78) U/L Alkaline Phosphatase 109 (45-117) U/L Total Protein 7.8 (6.4-8.2) g/dL Albumin 3.2 L (3.4-5.0) g/dL Intake and Output 01/27/18 01/28/18 01/28/18 22:59 06:59 14:59 Intake Total 480 / 480 240 / 240 Output Total 100 / 100 300 / 300 Balance 380 / 380 -60 / -60 Intake: Oral 480 / 480 240 / 240 Output: Urine 100 / 100 300 / 300 Other: Date of Last Bowel Movement 01/27/18 01/27/18 Weight 334 lb 14.115 oz - Imaging and Cardiology Imaging: Impressions Chest X-Ray 01/27/18 11:32 CONCLUSION: 1. Cardiomegaly. 2. No focal infiltrate or pulmonary vascular congestion. Head CT 01/27/18 11:35 CONCLUSION: 1. Negative CT Head non contrast. . Assessment and Plan - Plan 42-year-old male with reported nonischemic cardiomyopathy, systolic CHF, atrial fibrillation on warfarin, HLD, DM, morbid obesity who was sent to the hospital yesterday by PCP for elevated INR Atrial fibrillation: Rate uncontrolled, start digoxin 250 mcg daily, digoxin level in 1 week. Continue metoprolol. Elevated chads Vasc score due to CHF and diabetes. Continue warfarin for now for anticoagulation and will consider transition to NOAC as outpatient. Supratherapeutic INR: INR currently 4.0 after receiving vitamin K yesterday. Would resume warfarin at 10 mg daily tomorrow. We will further manage INR as outpatient. Repeat stat INR on 02/03. Reported cardiomyopathy: Patient reports EF 30%, sounds nonischemic. Will need to obtain records as outpatient. Check updated echocardiogram today prior to discharge. Change metoprolol to succinate 100 mg daily. Continue lisinopril at current dose, we will up titrate as outpatient. Okay to discharge after echocardiogram today. Patient scheduled for outpatient appointment with us on 02/04 at 8:45 AM. Labs one day prior as above. Discussed Condition With: Patient, Dr. Harrison
[2018-01-28] MEDS ORDERED: Pantoprazole Sodium 20 MG DR Tablet PO SCH (09:00)
[2018-01-28] MEDS ORDERED: Lisinopril 5 MG Tablet PO SCH (09:00)
[2018-01-28] MEDS ORDERED: Furosemide 20 MG Tablet PO SCH (09:00)
[2018-01-28] MEDS ORDERED: Spironolactone 25 MG Tablet PO SCH (09:00)
[2018-01-28] MEDS ORDERED: Digoxin 250 MCG Tablet PO SCH (09:00)
--- NOTE | 2018-01-28 09:04 | P.DS ---
DS: Providers Date of admission: 01/27/18 13:18 Primary care physician: Maeve Howell Consults: 01/27/18 19:05 Consult to Cardiology Routine Consulting Provider: Osiel Truong Does the patient have a Manager Community Outreach who follows them?: No Preferred Radiology Supervisor:: Sudarshan Harrison Reason for Consultation: afib rvr cardiomyopathy Notified:: Service Spoke with:: Hilda Date Notified:: 01/27/18 Time Notified:: 19:11 Comments:: Dr. Harrison requested, Dr. Truong is stoner hand. Ordering Provider: YUMIKO Brief History from admission: This is a 40-year-old male with a PMH of A. fib on Coumadin with INR of 15, CHF (Echo 04/13/14 w/ EF 45-50%), HTN, Tobacco Abuse and Noncompliance who presented to the ER with due to elevated INR. Per patient he currently takes 10 mg of Coumadin every day. He states that he had blood work yesterday that showed that his Coumadin level was 12 and he got the results of it today and was told to come to the ED. Patient did not take his regular medications this AM. Patient feels that his metoprolol causes him stomach cramping and reports that is why he did not take his metoprolol this AM. Patient was in A Fib RVR upon arrival to the ER. Patient was given Metoprolol 100 mg PO BID and Cardizem IV in the ER. HR 90-110 bpm. Patient offers no other complaints at this time denies, N/V/D/C, fevers, chills, chest pain or SOB. Past Medical History PMH: A. fib on Coumadin, CHF (Echo 04/13/14 w/ EF 45-50%), HTN, Tobacco Abuse and Noncompliance Past Surgical History Appendectomy, Right Leg Surgery Family History Reviewed and noncontributory Social History Denies ETOH use. Smokes 1ppd. Denies drug use DS: Summary This is a 40-year-old male with a PMH of A. fib on Coumadin with INR of 15, CHF (Echo 04/13/14 w/ EF 45-50%), HTN, Tobacco Abuse and Noncompliance who presented to the ER with due to elevated INR. Per patient he currently takes 10 mg of Coumadin every day. Patietn has recently changed his diet, he is trying the Keto diet. He states that he had blood work yesterday that showed that his Coumadin level was 12 and he got the results of it today and was told to come to the ED. Patient did not take his regular medications this AM. Patient was in A Fib RVR upon arrival to the ER. Patient currently on Cardizem drip with HR in the 90's at this time. A. fib RVR Patient did not take his home medications this AM Resume patient's Metoprolol tartrate 100 mg PO BID Patient was given Cardizem IV in the ER Patient feels that his metoprolol causes him stomach cramping and reports that is why he did not take his metoprolol this AM Patient does not follow with a local forestry pilot - Consult cardiology cardiology recommending changing metoprolol tartrate 100 mg PO BID to Metoprolol Succinate 100 mg PO once a day Cardiology added digoxin 250 mcg PO daily, dig level in 1 week with result to cardiology local cardiology will also monitor INR once patient DC'd - next INR 02/03 with results to cardiology Cardiology cleared for DC today after Echocardiogram Supra therapeutic INR INR 15 on admission Hold Coumadin Vitamin K 5 mg PO was given in ER No active signs for bleeding Recheck INR i12/20 4.0 Chest X-Ray 1. Cardiomegaly. 2. No focal infiltrate or pulmonary vascular congestion. Head CT 01/27/[address] Head non contrast. DM Patient takes Lantus 10 units daily at home and also uses SSI Will start diabetic diet Novolog SSI add Levemir 12 units BID CHF (Echo 04/13/14 w/ EF 45-50%) Continue patient's home Lisinopril 2.5 mg PO daily, Metoprolol 100 mg PO BID, lasix 20 mg PO daily and Spirolactone 25 mg PO daily patient follows with [facility] - requested that nursing obtain notes from [facility] clinic patient reports he is possible going to have a heart transplant HTN Continue patient's home Lisinopril 2.5 mg PO daily, Metoprolol 100 mg PO BID and Spirolactone 25 mg PO daily Hyperlipidemia continue patient's home Atorvastatin 40 mg daily Tobacco Abuse Patient counselled encouraged to abstain No DVT prophylaxis at this time INR elevated Attending Attestation: The exam, history, and the medical decision-making described in the above note were completed with the assistance of the mid-level provider. I reviewed and agree with the findings presented. I attest that I had a [id number] encounter with the patient on the same day, and personally performed and documented my assessment and findings in the medical record. Patient examined. Assessment and plan formulated with Jannette Toth PA-C. I agree with the above. Time Spent with Patient Total time spent providing and/or coordinating discharge services: Exam Narrative Exam Narrative: GENERAL: This is an obese, well-developed patient, in no apparent distress. CARDIOVASCULAR: irregularly irregular. RESPIRATORY: Clear to auscultation. Breath sounds equal bilaterally. GASTROINTESTINAL: Abdomen soft, non-tender, nondistended. Normal active bowel sounds MUSCULOSKELETAL: Extremities without clubbing, cyanosis, or edema. NEURO: Alert & Oriented x4 to person, place, time, situation. Moves all ext x4 Results Labs on day of discharge: Labs from last 24 hours 01/28/18 01/28/18 01/28/18 07:56 05:00 05:00 WBC RBC Hgb Hct MCV MCH MCHC RDW Plt Count MPV Neut % (Auto) Lymph % (Auto) [place]ion % (Auto) Eos % (Auto) Baso % (Auto) Neut # (Auto) Lymph # (Auto) [place]ion # (Auto) Eos # (Auto) Baso # (Auto) WBC Differential Differential Comment PT INR APTT Sodium Potassium Chloride Carbon Dioxide Anion Gap BUN Creatinine Estimated GFR POC Glucose 185 H Random Glucose Hemoglobin A1c Pending Calcium Total Bilirubin AST ALT Alkaline Phosphatase Troponin I B-Natriuretic Peptide Total Protein Albumin TSH Pending 01/28/18 01/28/18 01/28/18 05:00 05:00 05:00 WBC 9.0 RBC 5.37 Hgb 16.2 Hct 48.0 MCV 89.4 MCH 30.2 MCHC 33.8 RDW 14.9 Plt Count 199 MPV 9.7 Neut % (Auto) 62.3 Lymph % (Auto) 24.8 Irion % (Auto) 10.7 H Eos % (Auto) 1.5 Baso % (Auto) 0.7 Neut # (Auto) 5.6 Lymph # (Auto) 2.2 Irion # (Auto) 1.0 H Eos # (Auto) 0.1 Baso # (Auto) 0.1 WBC Differential . Differential Comment Auto diff final PT 39.8 H D INR 4.0 APTT Sodium 138 Potassium 4.2 Chloride 101 Carbon Dioxide 31.4 Anion Gap 6 BUN 21 H Creatinine 1.19 Estimated GFR 66 L POC Glucose Random Glucose 178 H D Hemoglobin A1c Calcium 8.8 Total Bilirubin AST ALT Alkaline Phosphatase Troponin I B-Natriuretic Peptide Total Protein Albumin TSH 01/27/18 01/27/18 01/27/18 21:19 16:15 11:30 WBC RBC Hgb Hct MCV MCH MCHC RDW Plt Count MPV Neut % (Auto) Lymph % (Auto) Irion % (Auto) Eos % (Auto) Baso % (Auto) Neut # (Auto) Lymph # (Auto) Irion # (Auto) Eos # (Auto) Baso # (Auto) WBC Differential Differential Comment PT 148.6 H INR 15.0 H* APTT 80.5 H Sodium Potassium Chloride Carbon Dioxide Anion Gap BUN Creatinine Estimated GFR POC Glucose 239 H 265 H Random Glucose Hemoglobin A1c Calcium Total Bilirubin AST ALT Alkaline Phosphatase Troponin I B-Natriuretic Peptide Total Protein Albumin TSH 01/27/18 01/27/18 01/27/18 11:30 11:30 11:30 WBC 9.3 RBC 5.43 Hgb 16.8 Hct 48.5 MCV 89.2 MCH 31.0 MCHC 34.7 RDW 15.0 Plt Count 211 MPV 9.8 Neut % (Auto) 70.7 H Lymph % (Auto) 17.8 Irion % (Auto) 9.2 H Eos % (Auto) 1.7 Baso % (Auto) 0.6 Neut # (Auto) 6.6 Lymph # (Auto) 1.7 Irion # (Auto) 0.9 Eos # (Auto) 0.2 Baso # (Auto) 0.1 WBC Differential . Differential Comment Auto diff final PT INR APTT Sodium 136 Potassium 4.7 Chloride 100 Carbon Dioxide 28.7 Anion Gap 7 BUN 19 H Creatinine 1.33 H Estimated GFR 58 L POC Glucose Random Glucose 327 H Hemoglobin A1c Calcium 8.3 L Total Bilirubin 0.4 AST 23 ALT 20 Alkaline Phosphatase 109 Troponin I Less than 0.02 L B-Natriuretic Peptide 100 Total Protein 7.8 Albumin 3.2 L TSH Impressions ITS Impressions Chest X-Ray 01/27/18 11:32 CONCLUSION: 1. Cardiomegaly. 2. No focal infiltrate or pulmonary vascular congestion. Head CT 01/27/18 11:35 CONCLUSION: 1. Negative CT Head non contrast. . Discharge Plan Discharge Disposition Patient Disposition: 01 Discharge Home Discharge Condition Condition: Stable Discharge Order Discharge Orders: Discharge Order (Routine); Ordered 01/28/18 Ordered By: Jannette Toth Discharge Details Discharge Comment: DC after Echocardiogram Physicians Team Primary Care Provider: Maeve Howell Attending Provider: Richi Bustillos Other Providers: Osiel Truong Rxs /Orders / Referrals /Forms Prescriptions: New metoprolol succinate 50 mg Tablet Extended Release 24 Hr 100 mg PO DAILY 30 Days Qty: 60 RF: 0 digoxin 250 mcg Tablet 250 mcg PO DAILY 30 Days Qty: 30 RF: 0 warfarin [Coumadin] 10 mg tablet 10 mg PO DAILY 30 Days Qty: 30 RF: 0 Continue atorvastatin 40 mg Tablet 40 mg PO HS RF: 0 aspirin [Aspir-81] 81 mg Tablet,Delayed Release (Dr/Ec) 81 mg PO DAILY RF: 0 spironolactone 25 mg Tablet 25 mg PO DAILY RF: 0 lisinopril 5 mg Tablet 2.5 mg PO DAILY RF: 0 furosemide 20 mg Tablet 20 mg PO DAILY RF: 0 gabapentin 300 mg Capsule 300 mg PO BID RF: 0 omeprazole magnesium [Prilosec OTC] 20 mg Tablet,Delayed Release (Dr/Ec) 20 mg PO DAILY RF: 0 Discontinued metoprolol tartrate 100 mg Tablet 100 mg PO BID RF: 0 warfarin 10 mg Tablet 7.5 mg PO DAILY RF: 0 warfarin 5 mg Tablet 5 mg PO DAILY RF: 0 Ambulatory Orders / Order Sets / DME: Digoxin (Routine) Timeframe: 1 Week Location: Determined by Patient Ordered By: Jannette Toth Prothrombin Time INR (Routine) Timeframe: [id number] Location: Determined by Patient Ordered By: Jannette Toth Referrals: Maeve Howell MD [Primary Care Provider] - See Instructions (follow up in 1 week) Sudarshan Harrison DO [Physician] - 02/04/18 8:45 am (appointment 02/04/18 8:45 AM) Discharge Instructions Patient Printed Instructions: Metoprolol (By mouth), Digoxin (By mouth), Warfarin (By mouth) Status ED Status: Left Department Discharge Information Discharge Date/Time: 01/28/18 12:28
[2018-01-28] MEDS: Gabapentin 300 MG Capsule PO SCH (09:17)
[2018-01-28] MEDS: Insulin NovoLOG Aspart Correctional Sugar Inj SQ SCH (09:18)
[2018-01-28] MEDS: Senna/Docusate Sodium 8.6/50 MG Tablet PO SCH (09:19)
[2018-01-28] MEDS: Insulin Detemir Inj 1,000 UNIT/10 ML Vial SQ SCH (09:19)
[2018-01-28 11:32] VITALS: BP 103/70; TEMP 98.5
--- NOTE | 2018-01-28 11:50 | ECHRPT ---
Indication: Heart failure, unspecified CONCLUSIONS Very technically difficult study with limited acoustic window visualization. The left ventricular systolic function is [id number] reduced with an estimated ejection fra ction in the range of 35-40%. Wall thickness is measured at the upper limits of normal. Normal left ventricular size. The left atrial size is mildly dilated. Mild mitral valve regurgitation. There is moderate tricuspid regurgitation. The estimated pulmonary arterial pressure is 37.9 mmHg. BP: / HR: Rhythm: Sinus MEASUREMENTS (Male / Female) Normal Values Technical Quality:Technically difficult study 2D ECHO LV Diastolic Diameter PLAX 5.5 cm 4.2 - 5.9 / 3.9 - 5.3 cm LV Systolic Diameter PLAX 4.4 cm IVS Diastolic Thickness 1.2 cm 0.6 - 1.0 / 0.6 - 0.9 cm LVPW Diastolic Thickness 1.2 cm 0.6 - 1.0 / 0.6 - 0.9 cm LV Relative Wall Thickness 0.4 LVOT Diameter 2.3 cm M-MODE Aortic Root Diameter MM 3.6 cm LA Systolic Diameter MM 4.7 cm LA Ao Ratio MM 1.3 AV Cusp Separation MM 2.8 cm DOPPLER AV Peak Velocity 114.0 cm/s AV Peak Gradient 5.2 mmHg LVOT Peak Velocity 85.4 cm/s LVOT Peak Gradient 2.9 mmHg AV Area Cont Eq pk 3.1 cm MR Peak Velocity 281.0 cm/s MR Peak Gradient 31.6 mmHg LV E' Lateral Velocity 12.4 cm/s LV E' Septal Velocity 8.0 cm/s TR Peak Velocity 264.0 cm/s TR Peak Gradient 27.9 mmHg Right Atrial Pressure 10.0 mmHg Pulmonary Artery Systolic Pressu 37.9 mmHg Right Ventricular Systolic Press 37.9 mmHg PV Peak Velocity 59.7 cm/s PV Peak Gradient 1.4 mmHg FINDINGS LEFT VENTRICLE The left ventricular systolic function is [id number] reduced with an estimated ejection fra ction in the range of 35-40%. Wall thickness is measured at the upper limits of normal. Normal left ventricular size. RIGHT VENTRICLE Normal right ventricular size and systolic function. LEFT ATRIUM The left atrial size is mildly dilated. RIGHT ATRIUM The right atrial size is normal. ATRIAL SEPTUM Normal atrial septal thickness without atrial level shunting by limited color doppler interrogation. AORTA The aortic root and proximal ascending aorta are normal in size on limited imaging. MITRAL VALVE The mitral valve is not well visualized. Mild mitral valve regurgitation. AORTIC VALVE Trileaflet aortic valve. No aortic valve stenosis or regurgitation. TRICUSPID VALVE The tricuspid valve is not well visualized. There is moderate tricuspid regurgitation. The estimated pulmonary arterial pressure is 37.9 mmHg. PULMONARY VALVE The pulmonary valve is not well visualized. VESSELS The inferior vena cava was not well visualized. PERICARDIUM No pericardial effusion. Sudarshan Harrison (Electronically Signed) Final Date:28 January 2018 11:49
[2018-01-28 13:16] VITALS: PULSE 91
[2018-01-28 16:02] LABS: Hemoglobin A1c 9.8 % (4.3-6.0)
== END 2018-01-28 12:28 | disposition home or self-care (01) ==
LOC: NEPC 11:15 → NEDA 13:18 → HCIS 16:07
PROVIDERS: ADMIT Hospitalist; ATTEND Hospitalist